=== PATIENT | female | born 1945 | race Caucasian/White ===

== ENCOUNTER 2023-09-15 16:15 | Inpatient (IN) | payer OTHER ==
--- OUTSIDE RECORDS SUMMARY | 2023-09-15 16:31 | XMS REPORT | Clinical Summary ---
:1945 Author Organization [facility] MD [facility] Address [address] [place] [address] Care Team Providers Name Role Phone Mary Wilson MD Unavailable Viet Fair MD Primary Care Provider Ghulam Alarcon MD Unavailable Allergies Active Allergy Reactions Severity Noted Date Comments Adhesive Hives 09/25/2016 Aspirin Shortness Of Breath High 09/21/2015 Ether Anaphylaxis High 07/17/2017 Ezetimibe Other (See Comments) 02/06/2020 Couldn' t lift her arms Silver Rash Low 09/25/2016 [id number] Other (See Comments) 02/06/2020 Has tried multiple Reductase Inhibitors statins in the past: Zocor (started falling), Crest or and lipitor was tri ed and then stopped. U nable to recollect th e side effects to last two statins. Medications Medication Sig Dispensed Refills Start Date End Date Status albuterol Inhale 2.5 mg by 0 11/26/2019 Ac tive (PROVENTIL,VENTOLIN) mouth. 2.5 mg/3 mL (0.083%) nebulizer solution clopidogrel (PLAVIX) 75 Take 75 mg by 0 02/26/2022 Active mg tablet mouth daily. fluticasone propionate Inhale 1 spray 0 02/08/2022 Active (FLONASE) 50 mcg/spray into each nostril nasal spray 2 (two) times a day as needed. gabapentin (NEURONTIN) TAKE 1 CAPSULE BY 0 2 Active 300 mg capsule MOUTH AT BEDTIME *MAY IMPAIR ALERTNESS lansoprazole (PREVACID) Take 30 mg by 0 02/11/[address] capsule mouth every morning before breakfast. losartan (COZAAR) 50 mg Take 100 mg by 0 02/26/2022 Active tablet mouth daily. budesonide-formoterol Inhale 2 puffs by 0 Active (SYMBICORT) 160-4.5 mouth twice mcg/actuation daily. But using inhalerIndications: as needed 1x week bronchospasm prevention with COPD oxyCODONE (Roxicodone) Take 1 tablet (5 5 tablet 0 07/05/2022 Active 5 mg immediate release mg) by mouth tabletIndications: every 4 (four) Vulvar intraepithelial hours as needed neoplasia III (YUNIEL III) for moderate pain. acetaminophen (Tylenol Take 2 tablets 60 tablet 0 07/05/2022 Active Extra Strength) 500 mg (1,000 mg) by tabletIndications: mouth every 6 Vulvar intraepithelial (six) hours. neoplasia III (YUNIEL III) senna-docusate Take 1 tablet by 60 tablet 0 07/05/2022 Active (SENOKOT-S) 8.6 mg-50 mouth twice mg tabletIndications: daily. Vulvar intraepithelial neoplasia III (YUNIEL III) metroNIDAZOLE (FLAGYL) Take 1 tablet 24 tablet 0 07/17/2022 Active 500 mg (500 mg) by mouth tabletIndications: every 12 (twelve) Postoperative wound hours. cellulitis levoFLOXacin (LEVAQUIN) Take 1 tablet 12 tablet 0 07/17/2022 Active 500 mg (500 mg) by mouth tabletIndications: daily. Postoperative wound cellulitis doxycycline Take 1 tablet 24 tablet 0 07/17/2022 Act jurgen (VIBRAMYCIN) 100 mg (100 mg) by mouth tabletIndications: every 12 (twelve) Postoperative wound hours. cellulitis triamcinolone (KENALOG) Apply topically 30 g 08/19/2022 Active ointment to affected 0.1%Indications: area(s) twice Contact dermatitis due daily. Avoid face to other agent, not otherwise specified desonide (DesOwen) Apply topically 30 g 08/19/2022 Active 0.05% creamIndications: to affected Rosacea, not otherwise area(s) twice specified daily. For face and neck fluocinonide (LIDEX) Apply topically 60 mL 3 08/19/2022 Active 0.05% topical to affected solutionIndications: area(s) twice Seborrheic dermatitis, daily. not otherwise specified ketoconazole (Nizoral) Apply topically 120 mL 6 08/19/2022 Active 2% shampooIndications: to affected Seborrheic dermatitis, area(s) 3 (three) not otherwise specified times a week Friday, Friday and Friday. urea 40% Apply topically 100 g 0 08/19/2022 Act jurgen creamIndications: to affected Lesion of scalp, area(s) twice Rosacea, not otherwise daily. specified, Seborrheic dermatitis, not otherwise specified, Contact dermatitis due to other agent, not otherwise specified Active Problems Problem Noted Date Neoplasm, malignant of overlapping lesion of vulva Cancer Staging: Pathologic stage from 07/05/2022: Stage IA (Primary) - Signed by YULISA Felder on 07/16/2022 Postoperative wound cellulitis 07/15/2022 Chronic bronchitis 05/28/2022 Tobacco use 05/28/2022 Vulvar intraepithelial neoplasia III (YUNIEL III) 022 Overview: Added automatically from request for leroy sanchez [id number] Abdominal aortic aneurysm without rupture 09/25/2016 Essential hypertension 09/25/2016 Immunizations Name Administration Dates Next Due Pfizer SARS-CoV-2 Vaccination (Purple 12/27/2021, , 06/09/2021 Cap) Surgical History Surgery Date Site/Laterality Comments HYSTERECTOMY RECTOPERITONEAL FISTULA CLOSURE SECTION, CLASSIC 1966, 1968 OOPHORECTOMY APPENDECTOMY COLONOSCOPY 12/01/2016 - 11/30/2017 SC VULVECTOMY SIMPLE PARTIAL 07/05/2022 Vulva/Left Pro cedure: PARTIAL VULVECTOMY - SIM PLE; Surgeon: Viet Fair MD; Location: [facility]; Service: PAINT FORMULATOR - GYNECOLOGIC ONCO LOGY Medical History Medical History Date Comments Hyperlipidemia Sinusitis Swallowing problem Cyst of breast Chronic bronchitis Gastric reflux Diverticulitis Eczema Basal cell carcinoma of skin 2014 Essential (primary) hypertension Neuropathy Vulvar intraepithelial neoplasia III (YUNIEL III) Family History Medical History Relation Name Comments Breast cancer Mother Mother Cervical cancer Sister Sister Relation Name Status Comments Mother Mother Sister Sister Social History Tobacco Use Types Packs/Day Years Used Date Smoking Tobacco: Every Day Cigarettes 1 55 Smokeless Tobacco: Never Alcohol Use Standard Drinks/Week Comments Not Currently 0 (1 standard drink = 0.6 oz pure alcoho l) Sex Assigned at Date Recorded Not on file Job Start Date Occupation Industry Not on file Not on file Not on file Obstetrics History Para Term AB IAB SAB Ectopic Multiple Living Live Births 2 2 2 Date Outcome GA Total Labor/2nd/3rd Weight Sex Delivery Anes PTL Ivory A 1 A5 Name Clin Labor Para Para Comments Menarche: age 18 Last PAP: 2017, normal. No history of ab normal pap smear or STI. Parity: age 21 HRT: x 10 years OCP: x 2 years Menopause: surgical Fertility Tx: denies Breastfeed: denies Last mammogram: Spring 2021. Last Filed Vital Signs Not on file Plan of Treatment Health Maintenance Due Date Last Done Comments COVID-19 Vaccination (4 - Pfizer 02/21/2022 12/27/2021, , series) 06/09/2021 Results Not on fileafter 09/15/2022 Insurance Payer Benefit Plan / Subscriber ID Effective Dates Phone Addre ss Type Group MEDICARE MEDICARE PART [id number] 2012-Rian [phone] [facility] Medicare A AND B t 2 SOLUTIONS [address] [place] [address] GENERIC GENERIC [id number] 2012-Rian 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 [address] Viet Fair MD PCP - General Gynecological Oncology 04/25/[address] [place] [address] [id number] Ghulam Alarcon MD Consulting Physician Internal Medicine 06/17/22 [facility] [place] [address]
--- OUTSIDE RECORDS SUMMARY | 2023-09-15 16:39 | XMS REPORT | Continuity of Care Document ---
:1945 Author Organization [facility] t Address [address] [place] [address] [address] [place] [address] Care Team Providers Name Role Phone [phone] Primary Care Physician Unavailable MAR MARADIAGA Attending Clinician Unavailable SHANAE ACUÑA K.HNora Attending Clinician Unavailable Doctor Unassigned, [place] Attending Clinician Unavailable Shanae Acuña MD K.HNora Attending Clinician Mohan Sarabia MD Attending Clinician Pob, [facility] Main Attending Clinician Unavailable Yue Thomas MD Attending Clinician YUE THOMAS Attending Clinician Unavailable Khalida Mejia Attending Clinician GIOVANNI GILBERT Attending Clinician Unavailable VICKIE CAGE Attending Clinician Unavailable YADIRA HAWK Attending Clinician Unavailable Sunday SMITH, Lyla Attending Clinician Unavailable DARLINE TAMAYO Attending Clinician Unavailable Nubia BROWN, Cathy Gordon Attending Clinician Darline Tamayo MD Attending Clinician RAFA MCCORMACK Attending Clinician Unavailable FELIX CLARK Attending Clinician Unavailable nAnetta Lo PA-C Attending Clinician DAYNE BASURTO Attending Clinician Unavailable GURJIT ORDONEZ Attending Clinician Unavailable VANESA BANEGAS Attending Clinician Unavailable ELENITA MARROQUIN Attending Clinician Unavailable Elenita Marroquin MD Attending Clinician MOHAN SARABIA Attending Clinician Unavailable Provider, [facility] Attending Clinician Unavailable Gasper Herrera Attending Clinician GASPER BAUTISTA Attending Clinician Unavailable Federico Davis DO Attending Clinician Hilda Zuluaga DO Attending Clinician HILDA ZULUAGA Attending Clinician Unavailable HILDA ZULUAGA Attending Clinician Unavailable Tammi Mabry MD Attending Clinician TAMMI MABRY Attending Clinician Unavailable Yarelis Attending Clinician Unavailable YADIRA HAWK Admitting Clinician Unavailable DARLINE TAMAYO Admitting Clinician Unavailable Darline Tamayo MD Admitting Clinician GIOVANNI GILBERT Admitting Clinician Unavailable ELENITA MARROQUIN Admitting Clinician Unavailable SHANAE ACUÑA Admitting Clinician Unavailable Yarelis Admitting Clinician Unavailable Payers Payer Name Policy Type Policy Number Effective Date Expiration Date S beatriz MEDICARE PART A [id number] 2012 AND B 00:00:00 GENERIC [id number] 2012 00:00:00 [place]IC[place] B-[place]: [id number] 2007 Balance Financial 00:00:00 ROCKY [id number] INSURANCE [email or web address] (MEDICARE SUPPLEMENT) Problems Condition Condition Condition Status Onset Resolution Last Treating Co mments Source Name Details Category Date Date Treatment Clinician Date Neoplasm, Neoplasm, Disease Active Uni vers malignant malignant 8-15 ity of of of 00:00: Alicia overlappin overlappin 00 MD gordon lesion g lesion Marv o of vulva [facility] vul[facility] Postoperat Postoperat Disease Active U nivers jurgen wound jurgen wound 8-15 [place] [facility] Cellulitis Cellulitis Disease Active U nivers of vulva of vulva 8-13 ity of of of 00:00: [place] multiple multiple 00 Medica l sites sites Branch Tobacco Tobacco Disease Active Univers use use 6-28 ity of 00:00: [place] 00 Medical Branch Chronic Chronic Disease Active Univers bronchitis bronchitis 6-28 it y of 00:00: [place] 00 MD [facility] [place] Tobacco Tobacco Disease Active Univers use use 6-28 ity of 00:00: [place] 00 MD [facility] 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 Formattin g of this note might be different from the original. 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 00:00: [place] without without 00 rupture rupture [facility] Essential Essential Disease Active 2015-12 Uni vers hypertensi hypertensi 0-26 it y of on on 00:00: [place] 00 MD [facility] Allergies, Adverse Reactions, Alerts Allergy Allergy Status Severity Reaction(s) Onset Inactive Treating Comm ents Source Name Type Date Date Clinician EZETIMIB DRUG Active Other 2020-0 MD E INGREDI 3-08 Anderso 00:00: n 00 STATINS- Drug Active Other 2020-0 MD HMG-COA Class 3-08 Anderso REDUCTAS 00:00: n E 00 INHIBITO RS STATINS- Drug Active Other 2020-0 MD HMG-COA Class 3-08 Anderso REDUCTAS 00:00: n E 00 INHIBITO RS EZETIMIB DRUG Active Other 2020-0 MD E INGREDI 3-08 Anderso 00:00: n 00 STATINS- Drug Active Other 2020-0 MD HMG-COA Class 3-08 Anderso REDUCTAS 00:00: n E 00 INHIBITO RS EZETIMIB DRUG Active Other 2020-0 MD E INGREDI 3-08 Anderso 00:00: n 00 Statins- Propensi Active Unknown - 2020-0 Has tried Univers Hmg-Coa ty to See comments 3-08 multiple i ty of [place] adverse 00:00: statins [place] e reaction 00 in the Medical Inhibito s past: Branch rs Zocor (started falling), Crestor and lipitor was tried and then stopped. Unable to recollect the side effects to last two statins. STATINS- Drug Active Unknown-Cmnt 2020-0 Un hannah HMG-COA Class 3-08 ity of REDUCTAS 00:00: [place] E 00 Medical INHIBITO Branch RS EZETIMIB DRUG Active Unknown-Cmnt 2020-0 Un hannah E INGREDI 3-08 ity of 00:00: [place] 00 Medical Branch STATINS- Drug Active Other 2020-0 MD HMG-COA Class 3-08 Anderso REDUCTAS 00:00: n E 00 INHIBITO RS EZETIMIB DRUG Active Other 2020-0 MD E INGREDI 3-08 Anderso 00:00: n 00 STATINS- Drug Active Other 2020-0 MD HMG-COA Class 3-08 Anderso REDUCTAS 00:00: n E 00 INHIBITO RS EZETIMIB DRUG Active Other 2020-0 MD E INGREDI 3-08 Anderso 00:00: n 00 STATINS- Drug Active Other 2020-0 MD HMG-COA Class 3-08 Anderso REDUCTAS 00:00: n E 00 INHIBITO RS EZETIMIB DRUG Active Other 2020-0 MD E INGREDI 3-08 Anderso 00:00: n 00 STATINS- Drug Active Other 2020-0 MD HMG-COA Class 3-08 Anderso REDUCTAS 00:00: n E 00 INHIBITO RS EZETIMIB DRUG Active Other 2020-0 MD E INGREDI 3-08 Anderso 00:00: n 00 STATINS- Drug Active Other 2020-0 MD HMG-COA Class 3-08 Anderso REDUCTAS 00:00: n E 00 INHIBITO RS EZETIMIB DRUG Active Other 2020-0 MD E INGREDI 3-08 Anderso 00:00: n 00 STATINS- Drug Active Other 2020-0 MD HMG-COA Class 3-08 Anderso REDUCTAS 00:00: n E 00 INHIBITO RS EZETIMIB DRUG Active Other 2020-0 MD E INGREDI 3-08 Anderso 00:00: n 00 STATINS- Drug Active Other 2020-0 MD HMG-COA Class 3-08 Anderso REDUCTAS 00:00: n E 00 INHIBITO RS EZETIMIB DRUG Active Other 2020-0 MD E INGREDI 3-08 Anderso 00:00: n 00 EZETIMIB DRUG Active Other 2020-0 MD E INGREDI 3-08 Anderso 00:00: n 00 STATINS- Drug Active Other 2020-0 MD HMG-COA Class 3-08 Anderso REDUCTAS 00:00: n E 00 INHIBITO RS EZETIMIB DRUG Active Other 2020-0 MD E INGREDI 3-08 Anderso 00:00: n 00 STATINS- Drug Active Other 2020-0 MD HMG-COA Class 3-08 Anderso REDUCTAS 00:00: n E 00 INHIBITO RS STATINS- Drug Active Other 2020-0 MD HMG-COA Class 3-08 Anderso REDUCTAS 00:00: n E 00 INHIBITO RS EZETIMIB DRUG Active Other 2020-0 MD E INGREDI 3-08 Anderso 00:00: n 00 STATINS- Drug Active Other 2020-0 MD HMG-COA Class 3-08 Anderso REDUCTAS 00:00: n E 00 INHIBITO RS EZETIMIB DRUG Active Other 2020-0 MD E INGREDI 3-08 Anderso 00:00: n 00 STATINS- Drug Active Other 2020-0 MD HMG-COA Class 3-08 Anderso REDUCTAS 00:00: n E 00 INHIBITO RS EZETIMIB DRUG Active Other 2020-0 MD E INGREDI 3-08 Anderso 00:00: n 00 STATINS- Drug Active Other 2020-0 MD HMG-COA Class 3-08 Anderso REDUCTAS 00:00: n E 00 INHIBITO RS EZETIMIB DRUG Active Other 2020-0 MD E INGREDI 3-08 Anderso 00:00: n 00 STATINS- Drug Active Other 2020-0 MD HMG-COA Class 3-08 Anderso REDUCTAS 00:00: n E 00 INHIBITO RS EZETIMIB DRUG Active Other 2020-0 MD E INGREDI 3-08 Anderso 00:00: n 00 STATINS- Drug Active Other 2020-0 MD HMG-COA Class 3-08 Anderso REDUCTAS 00:00: n E 00 INHIBITO RS EZETIMIB DRUG Active Other 2020-0 MD E INGREDI 3-08 Anderso 00:00: n 00 STATINS- Drug Active Other 2020-0 MD HMG-COA Class 3-08 Anderso REDUCTAS 00:00: n E 00 INHIBITO RS EZETIMIB DRUG Active Other 2020-0 MD E INGREDI 3-08 Anderso 00:00: n 00 STATINS- Drug Active Other 2020-0 MD HMG-COA Class 3-08 Anderso REDUCTAS 00:00: n E 00 INHIBITO RS EZETIMIB DRUG Active Other 2020-0 MD E INGREDI 3-08 Anderso 00:00: n 00 STATINS- Drug Active Other 2020-0 MD HMG-COA Class 3-08 Anderso REDUCTAS 00:00: n E 00 INHIBITO RS EZETIMIB DRUG Active Other 2020-0 MD E INGREDI 3-08 Anderso 00:00: n 00 STATINS- Drug Active Other 2020-0 MD HMG-COA Class 3-08 Anderso REDUCTAS 00:00: n E 00 INHIBITO RS EZETIMIB DRUG Active Other 2020-0 MD E INGREDI 3-08 Anderso 00:00: n 00 EZETIMIB DRUG Active Other 2020-0 MD E INGREDI 3-08 Anderso 00:00: n 00 STATINS- Drug Active Other 2020-0 MD HMG-COA Class 3-08 Anderso REDUCTAS 00:00: n E 00 INHIBITO RS EZETIMIB DRUG Active Other 2020-0 MD E INGREDI 3-08 Anderso 00:00: n 00 STATINS- Drug Active Other 2020-0 MD HMG-COA Class 3-08 Anderso REDUCTAS 00:00: n E 00 INHIBITO RS STATINS- Drug Active Other 2020-0 MD HMG-COA Class 3-08 Anderso REDUCTAS 00:00: n E 00 INHIBITO RS EZETIMIB DRUG Active Other 2020-0 MD E INGREDI 3-08 Anderso 00:00: n 00 STATINS- Drug Active Other 2020-0 MD HMG-COA Class 3-08 Anderso REDUCTAS 00:00: n E 00 INHIBITO RS EZETIMIB DRUG Active Other 2020-0 MD E INGREDI 3-08 Anderso 00:00: n 00 STATINS- Drug Active Other 2020-0 MD HMG-COA Class 3-08 Anderso REDUCTAS 00:00: n E 00 INHIBITO RS EZETIMIB DRUG Active Other 2020-0 MD E INGREDI 3-08 Anderso 00:00: n 00 STATINS- Drug Active Other 2020-0 MD HMG-COA Class 3-08 Anderso REDUCTAS 00:00: n E 00 INHIBITO RS EZETIMIB DRUG Active Other 2020-0 MD E INGREDI 3-08 Anderso 00:00: n 00 STATINS- Drug Active Other 2020-0 MD HMG-COA Class 3-08 Anderso REDUCTAS 00:00: n E 00 INHIBITO RS EZETIMIB DRUG Active Other 2020-0 MD E INGREDI 3-08 Anderso 00:00: n 00 STATINS- Drug Active Other 2020-0 MD HMG-COA Class 3-08 Anderso REDUCTAS 00:00: n E 00 INHIBITO RS EZETIMIB DRUG Active Other 2020-0 MD E INGREDI 3-08 Anderso 00:00: n 00 STATINS- Drug Active Other 2020-0 MD HMG-COA Class 3-08 Anderso REDUCTAS 00:00: n E 00 INHIBITO RS EZETIMIB DRUG Active Other 2020-0 MD E INGREDI 3-08 Anderso 00:00: n 00 STATINS- Drug Active Other 2020-0 MD HMG-COA Class 3-08 Anderso REDUCTAS 00:00: n E 00 INHIBITO RS EZETIMIB DRUG Active Other 2020-0 MD E INGREDI 3-08 Anderso 00:00: n 00 STATINS- Drug Active Other 2020-0 MD HMG-COA Class 3-08 Anderso REDUCTAS 00:00: n E 00 INHIBITO RS EZETIMIB DRUG Active Other 2020-0 MD E INGREDI 3-08 Anderso 00:00: n 00 EZETIMIB DRUG Active Other 2020-0 MD E INGREDI 3-08 Anderso 00:00: n 00 STATINS- Drug Active Other 2020-0 MD HMG-COA Class 3-08 Anderso REDUCTAS 00:00: n E 00 INHIBITO RS EZETIMIB DRUG Active Other 2020-0 MD E INGREDI 3-08 Anderso 00:00: n 00 STATINS- Drug Active Other 2020-0 MD HMG-COA Class 3-08 Anderso REDUCTAS 00:00: n E 00 INHIBITO RS STATINS- Drug Active Other 2020-0 MD HMG-COA Class 3-08 Anderso REDUCTAS 00:00: n E 00 INHIBITO RS EZETIMIB DRUG Active Other 2020-0 MD E INGREDI 3-08 Anderso 00:00: n 00 STATINS- Drug Active Other 2020-0 MD HMG-COA Class 3-08 Anderso REDUCTAS 00:00: n E 00 INHIBITO RS EZETIMIB DRUG Active Other 2020-0 MD E INGREDI 3-08 Anderso 00:00: n 00 STATINS- Drug Active Other 2020-0 MD HMG-COA Class 3-08 Anderso REDUCTAS 00:00: n E 00 INHIBITO RS EZETIMIB DRUG Active Other 2020-0 MD E INGREDI 3-08 Anderso 00:00: n 00 STATINS- Drug Active Other 2020-0 MD HMG-COA Class 3-08 Anderso REDUCTAS 00:00: n E 00 INHIBITO RS EZETIMIB DRUG Active Other 2020-0 MD E INGREDI 3-08 Anderso 00:00: n 00 STATINS- Drug Active Other 2020-0 MD HMG-COA Class 3-08 Anderso REDUCTAS 00:00: n E 00 INHIBITO RS EZETIMIB DRUG Active Other 2020-0 MD E INGREDI 3-08 Anderso 00:00: n 00 STATINS- Drug Active Other 2020-0 MD HMG-COA Class 3-08 Anderso REDUCTAS 00:00: n E 00 INHIBITO RS EZETIMIB DRUG Active Other 2020-0 MD E INGREDI 3-08 Anderso 00:00: n 00 STATINS- Drug Active Other 2020-0 MD HMG-COA Class 3-08 Anderso REDUCTAS 00:00: n E 00 INHIBITO RS EZETIMIB DRUG Active Other 2020-0 MD E INGREDI 3-08 Anderso 00:00: n 00 STATINS- Drug Active Other 2020-0 MD HMG-COA Class 3-08 Anderso REDUCTAS 00:00: n E 00 INHIBITO RS EZETIMIB DRUG Active Other 2020-0 MD E INGREDI 3-08 Anderso 00:00: n 00 STATINS- Drug Active Other 2020-0 MD HMG-COA Class 3-08 Anderso REDUCTAS 00:00: n E 00 INHIBITO RS EZETIMIB DRUG Active Other 2020-0 MD E INGREDI 3-08 Anderso 00:00: n 00 STATINS- Drug Active Other 2020-0 MD HMG-COA Class 3-08 Anderso REDUCTAS 00:00: n E 00 INHIBITO RS EZETIMIB DRUG Active Other 2020-0 MD E INGREDI 3-08 Anderso 00:00: n 00 STATINS- Drug Active Other 2020-0 MD HMG-COA Class 3-08 Anderso REDUCTAS 00:00: n E 00 INHIBITO RS EZETIMIB DRUG Active Other 2020-0 MD E INGREDI 3-08 Anderso 00:00: n 00 STATINS- Drug Active Other 2020-0 MD HMG-COA Class 3-08 Anderso REDUCTAS 00:00: n E 00 INHIBITO RS EZETIMIB DRUG Active Other 2020-0 MD E INGREDI 3-08 Anderso 00:00: n 00 EZETIMIB DRUG Active Other 2020-0 MD E INGREDI 3-08 Anderso 00:00: n 00 STATINS- Drug Active Other 2020-0 MD HMG-COA Class 3-08 Anderso REDUCTAS 00:00: n E 00 INHIBITO RS STATINS- Drug Active Other 2020-0 MD HMG-COA Class 3-08 Anderso REDUCTAS 00:00: n E 00 INHIBITO RS EZETIMIB DRUG Active Other 2020-0 MD E INGREDI 3-08 Anderso 00:00: n 00 STATINS- Drug Active Other 2020-0 MD HMG-COA Class 3-08 Anderso REDUCTAS 00:00: n E 00 INHIBITO RS Ezetimib Propensi Active Other (See 2020-0 Couldn't Univers e ty to Comments) 3- lift her ity o f adverse 00:00: arms [place] reaction 00 MD [facility] Statins- Propensi Active Other (See 2020-0 Has tried Univers Hmg-Coa ty to Comments) 3- multiple ity of [place] adverse 00:00: statins [place] e reaction 00 in the MD Urbina s past: Anderso rs Zocor n (started Cancer falling), Center Crestor and lipitor was tried and then stopped. Unable to recollect the side effects to last two statins. EZETIMIB DRUG Active Other 2020-0 MD E INGREDI 3-08 Anderso 00:00: n 00 STATINS- Drug Active Other 2020-0 MD HMG-COA Class 3-08 Anderso REDUCTAS 00:00: n E 00 INHIBITO RS EZETIMIB DRUG Active Other 2020-0 MD E INGREDI 3-08 Anderso 00:00: n 00 STATINS- Drug Active Other 2020-0 MD HMG-COA Class 3-08 Anderso REDUCTAS 00:00: n E 00 INHIBITO RS EZETIMIB DRUG Active Other 2020-0 MD E INGREDI 3-08 Anderso 00:00: n 00 STATINS- Drug Active Other 2020-0 MD HMG-COA Class 3-08 Anderso REDUCTAS 00:00: n E 00 INHIBITO RS EZETIMIB DRUG Active Other 2020-0 MD E INGREDI 3-08 Anderso 00:00: n 00 STATINS- Drug Active Other 2020-0 MD HMG-COA Class 3-08 Anderso REDUCTAS 00:00: n E 00 INHIBITO RS EZETIMIB DRUG Active Other 2020-0 MD E INGREDI 3-08 Anderso 00:00: n 00 STATINS- Drug Active Other 2020-0 MD HMG-COA Class 3-08 Anderso REDUCTAS 00:00: n E 00 INHIBITO RS EZETIMIB DRUG Active Other 2020-0 MD E INGREDI 3-08 Anderso 00:00: n 00 STATINS- Drug Active Other 2020-0 MD HMG-COA Class 3-08 Anderso REDUCTAS 00:00: n E 00 INHIBITO RS EZETIMIB DRUG Active Other 2020-0 MD E INGREDI 3-08 Anderso 00:00: n 00 STATINS- Drug Active Other 2020-0 MD HMG-COA Class 3-08 Anderso REDUCTAS 00:00: n E 00 INHIBITO RS EZETIMIB DRUG Active Other 2020-0 MD E INGREDI 3-08 Anderso 00:00: n 00 STATINS- Drug Active Other 2020-0 MD HMG-COA Class 3-08 Anderso REDUCTAS 00:00: n E 00 INHIBITO RS EZETIMIB DRUG Active Other 2020-0 MD E INGREDI 3-08 Anderso 00:00: n 00 STATINS- Drug Active Other 2020-0 MD HMG-COA Class 3-08 Anderso REDUCTAS 00:00: n E 00 INHIBITO RS EZETIMIB DRUG Active Other 2020-0 MD E INGREDI 3-08 Anderso 00:00: n 00 EZETIMIB DRUG Active Other 2020-0 MD E INGREDI 3-08 Anderso 00:00: n 00 STATINS- Drug Active Other 2020-0 MD HMG-COA Class 3-08 Anderso REDUCTAS 00:00: n E 00 INHIBITO RS EZETIMIB DRUG Active Other 2020-0 MD E INGREDI 3-08 Anderso 00:00: n 00 STATINS- Drug Active Other 2020-0 MD HMG-COA Class 3-08 Anderso REDUCTAS 00:00: n E 00 INHIBITO RS STATINS- Drug Active Other 2020-0 MD HMG-COA Class 3-08 Anderso REDUCTAS 00:00: n E 00 INHIBITO RS EZETIMIB DRUG Active Other 2020-0 MD E INGREDI 3-08 Anderso 00:00: n 00 STATINS- Drug Active Other 2020-0 MD HMG-COA Class 3-08 Anderso REDUCTAS 00:00: n E 00 INHIBITO RS EZETIMIB DRUG Active Other 2020-0 MD E INGREDI 3-08 Anderso 00:00: n 00 STATINS- Drug Active Other 2020-0 MD HMG-COA Class 3-08 Anderso REDUCTAS 00:00: n E 00 INHIBITO RS EZETIMIB DRUG Active Other 2020-0 MD E INGREDI 3-08 Anderso 00:00: n 00 STATINS- Drug Active Other 2020-0 MD HMG-COA Class 3-08 Anderso REDUCTAS 00:00: n E 00 INHIBITO RS EZETIMIB DRUG Active Other 2020-0 MD E INGREDI 3-08 Anderso 00:00: n 00 STATINS- Drug Active Other 2020-0 MD HMG-COA Class 3-08 Anderso REDUCTAS 00:00: n E 00 INHIBITO RS EZETIMIB DRUG Active Other 2020-0 MD E INGREDI 3-08 Anderso 00:00: n 00 STATINS- Drug Active Other 2020-0 MD HMG-COA Class 3-08 Anderso REDUCTAS 00:00: n E 00 INHIBITO RS EZETIMIB DRUG Active Other 2020-0 MD E INGREDI 3-08 Anderso 00:00: n 00 STATINS- Drug Active Other 2020-0 MD HMG-COA Class 3-08 Anderso REDUCTAS 00:00: n E 00 INHIBITO RS EZETIMIB DRUG Active Other 2020-0 MD E INGREDI 3-08 Anderso 00:00: n 00 STATINS- Drug Active Other 2020-0 MD HMG-COA Class 3-08 Anderso REDUCTAS 00:00: n E 00 INHIBITO RS EZETIMIB DRUG Active Other 2020-0 MD E INGREDI 3-08 Anderso 00:00: n 00 STATINS- Drug Active Other 2020-0 MD HMG-COA Class 3-08 Anderso REDUCTAS 00:00: n E 00 INHIBITO RS EZETIMIB DRUG Active Other 2020-0 MD E INGREDI 3-08 Anderso 00:00: n 00 STATINS- Drug Active Other 2020-0 MD HMG-COA Class 3-08 Anderso REDUCTAS 00:00: n E 00 INHIBITO RS EZETIMIB DRUG Active Other 2020-0 MD E INGREDI 3-08 Anderso 00:00: n 00 STATINS- Drug Active Other 2020-0 MD HMG-COA Class 3-08 Anderso REDUCTAS 00:00: n E 00 INHIBITO RS EZETIMIB DRUG Active Other 2020-0 MD E INGREDI 3-08 Anderso 00:00: n 00 EZETIMIB DRUG Active Other 2020-0 MD E INGREDI 3-08 Anderso 00:00: n 00 STATINS- Drug Active Other 2020-0 MD HMG-COA Class 3-08 Anderso REDUCTAS 00:00: n E 00 INHIBITO RS STATINS- Drug Active Other 2020-0 MD HMG-COA Class 3-08 Anderso REDUCTAS 00:00: n E 00 INHIBITO RS EZETIMIB DRUG Active Other 2020-0 MD E INGREDI 3-08 Anderso 00:00: n 00 STATINS- Drug Active Other 2020-0 MD HMG-COA Class 3-08 Anderso REDUCTAS 00:00: n E 00 INHIBITO RS EZETIMIB DRUG Active Other 2020-0 MD E INGREDI 3-08 Anderso 00:00: n 00 STATINS- Drug Active Other 2020-0 MD HMG-COA Class 3-08 Anderso REDUCTAS 00:00: n E 00 INHIBITO RS EZETIMIB DRUG Active Other 2020-0 MD E INGREDI 3-08 Anderso 00:00: n 00 STATINS- Drug Active Other 2020-0 MD HMG-COA Class 3-08 Anderso REDUCTAS 00:00: n E 00 INHIBITO RS EZETIMIB DRUG Active Other 2020-0 MD E INGREDI 3-08 Anderso 00:00: n 00 STATINS- Drug Active Other 2020-0 MD HMG-COA Class 3-08 Anderso REDUCTAS 00:00: n E 00 INHIBITO RS EZETIMIB DRUG Active Other 2020-0 MD E INGREDI 3-08 Anderso 00:00: n 00 STATINS- Drug Active Other 2020-0 MD HMG-COA Class 3-08 Anderso REDUCTAS 00:00: n E 00 INHIBITO RS EZETIMIB DRUG Active Other 2020-0 MD E INGREDI 3-08 Anderso 00:00: n 00 STATINS- Drug Active Other 2020-0 MD HMG-COA Class 3-08 Anderso REDUCTAS 00:00: n E 00 INHIBITO RS EZETIMIB DRUG Active Other 2020-0 MD E INGREDI 3-08 Anderso 00:00: n 00 STATINS- Drug Active Other 2020-0 MD HMG-COA Class 3-08 Anderso REDUCTAS 00:00: n E 00 INHIBITO RS EZETIMIB DRUG Active Other 2020-0 MD E INGREDI 3-08 Anderso 00:00: n 00 STATINS- Drug Active Other 2020-0 MD HMG-COA Class 3-08 Anderso REDUCTAS 00:00: n E 00 INHIBITO RS EZETIMIB DRUG Active Other 2020-0 MD E INGREDI 3-08 Anderso 00:00: n 00 STATINS- Drug Active Other 2020-0 MD HMG-COA Class 3-08 Anderso REDUCTAS 00:00: n E 00 INHIBITO RS EZETIMIB DRUG Active Other 2020-0 MD E INGREDI 3-08 Anderso 00:00: n 00 STATINS- Drug Active Other 2020-0 MD HMG-COA Class 3-08 Anderso REDUCTAS 00:00: n E 00 INHIBITO RS EZETIMIB DRUG Active Other 2020-0 MD E INGREDI 3-08 Anderso 00:00: n 00 EZETIMIB DRUG Active Other 2020-0 MD E INGREDI 3-08 Anderso 00:00: n 00 STATINS- Drug Active Other 2020-0 MD HMG-COA Class 3-08 Anderso REDUCTAS 00:00: n E 00 INHIBITO RS EZETIMIB DRUG Active Other 2020-0 MD E INGREDI 3-08 Anderso 00:00: n 00 STATINS- Drug Active Other 2020-0 MD HMG-COA Class 3-08 Anderso REDUCTAS 00:00: n E 00 INHIBITO RS STATINS- Drug Active Other 2020-0 MD HMG-COA Class 3-08 Anderso REDUCTAS 00:00: n E 00 INHIBITO RS EZETIMIB DRUG Active Other 2020-0 MD E INGREDI 3-08 Anderso 00:00: n 00 STATINS- Drug Active Other 2020-0 MD HMG-COA Class 3-08 Anderso REDUCTAS 00:00: n E 00 INHIBITO RS EZETIMIB DRUG Active Other 2020-0 MD E INGREDI 3-08 Anderso 00:00: n 00 STATINS- Drug Active Other 2020-0 MD HMG-COA Class 3-08 Anderso REDUCTAS 00:00: n E 00 INHIBITO RS EZETIMIB DRUG Active Other 2020-0 MD E INGREDI 3-08 Anderso 00:00: n 00 STATINS- Drug Active Other 2020-0 MD HMG-COA Class 3-08 Anderso REDUCTAS 00:00: n E 00 INHIBITO RS EZETIMIB DRUG Active Other 2020-0 MD E INGREDI 3-08 Anderso 00:00: n 00 STATINS- Drug Active Other 2020-0 MD HMG-COA Class 3-08 Anderso REDUCTAS 00:00: n E 00 INHIBITO RS EZETIMIB DRUG Active Other 2020-0 MD E INGREDI 3-08 Anderso 00:00: n 00 STATINS- Drug Active Other 2020-0 MD HMG-COA Class 3-08 Anderso REDUCTAS 00:00: n E 00 INHIBITO RS EZETIMIB DRUG Active Other 2020-0 MD E INGREDI 3-08 Anderso 00:00: n 00 STATINS- Drug Active Other 2020-0 MD HMG-COA Class 3-08 Anderso REDUCTAS 00:00: n E 00 INHIBITO RS EZETIMIB DRUG Active Other 2020-0 MD E INGREDI 3-08 Anderso 00:00: n 00 STATINS- Drug Active Other 2020-0 MD HMG-COA Class 3-08 Anderso REDUCTAS 00:00: n E 00 INHIBITO RS EZETIMIB DRUG Active Other 2020-0 MD E INGREDI 3-08 Anderso 00:00: n 00 STATINS- Drug Active Other 2020-0 MD HMG-COA Class 3-08 Anderso REDUCTAS 00:00: n E 00 INHIBITO RS EZETIMIB DRUG Active Other 2020-0 MD E INGREDI 3-08 Anderso 00:00: n 00 STATINS- Drug Active Other 2020-0 MD HMG-COA Class 3-08 Anderso REDUCTAS 00:00: n E 00 INHIBITO RS EZETIMIB DRUG Active Other 2020-0 MD E INGREDI 3-08 Anderso 00:00: n 00 EZETIMIB DRUG Active Other 2020-0 MD E INGREDI 3-08 Anderso 00:00: n 00 STATINS- Drug Active Other 2020-0 MD HMG-COA Class 3-08 Anderso REDUCTAS 00:00: n E 00 INHIBITO RS EZETIMIB DRUG Active Other 2020-0 MD E INGREDI 3-08 Anderso 00:00: n 00 STATINS- Drug Active Other 2020-0 MD HMG-COA Class 3-08 Anderso REDUCTAS 00:00: n E 00 INHIBITO RS STATINS- Drug Active Other 2020-0 MD HMG-COA Class 3-08 Anderso REDUCTAS 00:00: n E 00 INHIBITO RS EZETIMIB DRUG Active Other 2020-0 MD E INGREDI 3-08 Anderso 00:00: n 00 STATINS- Drug Active Other 2020-0 MD HMG-COA Class 3-08 Anderso REDUCTAS 00:00: n E 00 INHIBITO RS EZETIMIB DRUG Active Other 2020-0 MD E INGREDI 3-08 Anderso 00:00: n 00 STATINS- Drug Active Other 2020-0 MD HMG-COA Class 3-08 Anderso REDUCTAS 00:00: n E 00 INHIBITO RS EZETIMIB DRUG Active Other 2020-0 MD E INGREDI 3-08 Anderso 00:00: n 00 STATINS- Drug Active Other 2020-0 MD HMG-COA Class 3-08 Anderso REDUCTAS 00:00: n E 00 INHIBITO RS EZETIMIB DRUG Active Other 2020-0 MD E INGREDI 3-08 Anderso 00:00: n 00 STATINS- Drug Active Other 2020-0 MD HMG-COA Class 3-08 Anderso REDUCTAS 00:00: n E 00 INHIBITO RS EZETIMIB DRUG Active Other 2020-0 MD E INGREDI 3-08 Anderso 00:00: n 00 STATINS- Drug Active Other 2020-0 MD HMG-COA Class 3-08 Anderso REDUCTAS 00:00: n E 00 INHIBITO RS EZETIMIB DRUG Active Other 2020-0 MD E INGREDI 3-08 Anderso 00:00: n 00 STATINS- Drug Active Other 2020-0 MD HMG-COA Class 3-08 Anderso REDUCTAS 00:00: n E 00 INHIBITO RS EZETIMIB DRUG Active Other 2020-0 MD E INGREDI 3-08 Anderso 00:00: n 00 STATINS- Drug Active Other 2020-0 MD HMG-COA Class 3-08 Anderso REDUCTAS 00:00: n E 00 INHIBITO RS EZETIMIB DRUG Active Other 2020-0 MD E INGREDI 3-08 Anderso 00:00: n 00 EZETIMIB DRUG Active Other 2020-0 MD E INGREDI 3-08 Anderso 00:00: n 00 STATINS- Drug Active Other 2020-0 MD HMG-COA Class 3-08 Anderso REDUCTAS 00:00: n E 00 INHIBITO RS EZETIMIB DRUG Active Other 2020-0 MD E INGREDI 3-08 Anderso 00:00: n 00 STATINS- Drug Active Other 2020-0 MD HMG-COA Class 3-08 Anderso REDUCTAS 00:00: n E 00 INHIBITO RS STATINS- Drug Active Other 2020-0 MD HMG-COA Class 3-08 Anderso REDUCTAS 00:00: n E 00 INHIBITO RS EZETIMIB DRUG Active Other 2020-0 MD E INGREDI 3-08 Anderso 00:00: n 00 STATINS- Drug Active Other 2020-0 MD HMG-COA Class 3-08 Anderso REDUCTAS 00:00: n E 00 INHIBITO RS EZETIMIB DRUG Active Other 2020-0 MD E INGREDI 3-08 Anderso 00:00: n 00 STATINS- Drug Active Other 2020-0 MD HMG-COA Class 3-08 Anderso REDUCTAS 00:00: n E 00 INHIBITO RS EZETIMIB DRUG Active Other 2020-0 MD E INGREDI 3-08 Anderso 00:00: n 00 STATINS- Drug Active Other 2020-0 MD HMG-COA Class 3-08 Anderso REDUCTAS 00:00: n E 00 INHIBITO RS EZETIMIB DRUG Active Other 2020-0 MD E INGREDI 3-08 Anderso 00:00: n 00 STATINS- Drug Active Other 2020-0 MD HMG-COA Class 3-08 Anderso REDUCTAS 00:00: n E 00 INHIBITO RS EZETIMIB DRUG Active Other 2020-0 MD E INGREDI 3-08 Anderso 00:00: n 00 STATINS- Drug Active Other 2020-0 MD HMG-COA Class 3-08 Anderso REDUCTAS 00:00: n E 00 INHIBITO RS EZETIMIB DRUG Active Other 2020-0 MD E INGREDI 3-08 Anderso 00:00: n 00 STATINS- Drug Active Other 2020-0 MD HMG-COA Class 3-08 Anderso REDUCTAS 00:00: n E 00 INHIBITO RS EZETIMIB DRUG Active Other 2020-0 MD E INGREDI 3-08 Anderso 00:00: n 00 STATINS- Drug Active Other 2020-0 MD HMG-COA Class 3-08 Anderso REDUCTAS 00:00: n E 00 INHIBITO RS EZETIMIB DRUG Active Other 2020-0 MD E INGREDI 3-08 Anderso 00:00: n 00 STATINS- Drug Active Other 2020-0 MD HMG-COA Class 3-08 Anderso REDUCTAS 00:00: n E 00 INHIBITO RS EZETIMIB DRUG Active Other 2020-0 MD E INGREDI 3-08 Anderso 00:00: n 00 STATINS- Drug Active Other 2020-0 MD HMG-COA Class 3-08 Anderso REDUCTAS 00:00: n E 00 INHIBITO RS EZETIMIB DRUG Active Other 2020-0 MD E INGREDI 3-08 Anderso 00:00: n 00 STATINS- Drug Active Other 2020-0 MD HMG-COA Class 3-08 Anderso REDUCTAS 00:00: n E 00 INHIBITO RS EZETIMIB DRUG Active Other 2020-0 MD E INGREDI 3-08 Anderso 00:00: n 00 STATINS- Drug Active Other 2020-0 MD HMG-COA Class 3-08 Anderso REDUCTAS 00:00: n E 00 INHIBITO RS EZETIMIB DRUG Active Other 2020-0 MD E INGREDI 3-08 Anderso 00:00: n 00 STATINS- Drug Active Other 2020-0 MD HMG-COA Class 3-08 Anderso REDUCTAS 00:00: n E 00 INHIBITO RS EZETIMIB DRUG Active Other 2020-0 MD E INGREDI 3-08 Anderso 00:00: n 00 STATINS- Drug Active Other 2020-0 MD HMG-COA Class 3-08 Anderso REDUCTAS 00:00: n E 00 INHIBITO RS EZETIMIB DRUG Active Other 2020-0 MD E INGREDI 3-08 Anderso 00:00: n 00 STATINS- Drug Active Other 2020-0 MD HMG-COA Class 3-08 Anderso REDUCTAS 00:00: n E 00 INHIBITO RS EZETIMIB DRUG Active Other 2020-0 MD E INGREDI 3-08 Anderso 00:00: n 00 STATINS- Drug Active Other 2020-0 MD HMG-COA Class 3-08 Anderso REDUCTAS 00:00: n E 00 INHIBITO RS EZETIMIB DRUG Active Other 2020-0 MD E INGREDI 3-08 Anderso 00:00: n 00 STATINS- Drug Active Other 2020-0 MD HMG-COA Class 3-08 Anderso REDUCTAS 00:00: n E 00 INHIBITO RS EZETIMIB DRUG Active Other 2020-0 MD E INGREDI 3-08 Anderso 00:00: n 00 STATINS- Drug Active Other 2020-0 MD HMG-COA Class 3-08 Anderso REDUCTAS 00:00: n E 00 INHIBITO RS EZETIMIB DRUG Active Other 2020-0 MD E INGREDI 3-08 Anderso 00:00: n 00 STATINS- Drug Active Other 2020-0 MD HMG-COA Class 3-08 Anderso REDUCTAS 00:00: n E 00 INHIBITO RS EZETIMIB DRUG Active Other 2020-0 MD E INGREDI 3-08 Anderso 00:00: n 00 STATINS- Drug Active Other 2020-0 MD HMG-COA Class 3-08 Anderso REDUCTAS 00:00: n E 00 INHIBITO RS EZETIMIB DRUG Active Other 2020-0 MD E INGREDI 3-08 Anderso 00:00: n 00 STATINS- Drug Active Other 2020-0 MD HMG-COA Class 3-08 Anderso REDUCTAS 00:00: n E 00 INHIBITO RS EZETIMIB DRUG Active Other 2020-0 MD E INGREDI 3-08 Anderso 00:00: n 00 STATINS- Drug Active Other 2020-0 MD HMG-COA Class 3-08 Anderso REDUCTAS 00:00: n E 00 INHIBITO RS EZETIMIB DRUG Active Other 2020-0 MD E INGREDI 3-08 Anderso 00:00: n 00 STATINS- Drug Active Other 2020-0 MD HMG-COA Class 3-08 Anderso REDUCTAS 00:00: n E 00 INHIBITO RS EZETIMIB DRUG Active Other 2020-0 MD E INGREDI 3-08 Anderso 00:00: n 00 STATINS- Drug Active Other 2020-0 MD HMG-COA Class 3-08 Anderso REDUCTAS 00:00: n E 00 INHIBITO RS EZETIMIB DRUG Active Other 2020-0 MD E INGREDI 3-08 Anderso 00:00: n 00 STATINS- Drug Active Other 2020-0 MD HMG-COA Class 3-08 Anderso REDUCTAS 00:00: n E 00 INHIBITO RS EZETIMIB DRUG Active Other 2020-0 MD E INGREDI 3-08 Anderso 00:00: n 00 STATINS- Drug Active Other 2020-0 MD HMG-COA Class 3-08 Anderso REDUCTAS 00:00: n E 00 INHIBITO RS EZETIMIB DRUG Active Other 2020-0 MD E INGREDI 3-08 Anderso 00:00: n 00 STATINS- Drug Active Other 2020-0 MD HMG-COA Class 3-08 Anderso REDUCTAS 00:00: n E 00 INHIBITO RS EZETIMIB DRUG Active Other 2020-0 MD E INGREDI 3-08 Anderso 00:00: n 00 STATINS- Drug Active Other 2020-0 MD HMG-COA Class 3-08 Anderso REDUCTAS 00:00: n E 00 INHIBITO RS EZETIMIB DRUG Active Other 2020-0 MD E INGREDI 3-08 Anderso 00:00: n 00 STATINS- Drug Active Other 2020-0 MD HMG-COA Class 3-08 Anderso REDUCTAS 00:00: n E 00 INHIBITO RS EZETIMIB DRUG Active Other 2020-0 MD E INGREDI 3-08 Anderso 00:00: n 00 STATINS- Drug Active Other 2020-0 MD HMG-COA Class 3-08 Anderso REDUCTAS 00:00: n E 00 INHIBITO RS EZETIMIB DRUG Active Other 2020-0 MD E INGREDI 3-08 Anderso 00:00: n 00 STATINS- Drug Active Other 2020-0 MD HMG-COA Class 3-08 Anderso REDUCTAS 00:00: n E 00 INHIBITO RS EZETIMIB DRUG Active Other 2020-0 MD E INGREDI 3-08 Anderso 00:00: n 00 STATINS- Drug Active Other 2020-0 MD HMG-COA Class 3-08 Anderso REDUCTAS 00:00: n E 00 INHIBITO RS EZETIMIB DRUG Active Other 2020-0 MD E INGREDI 3-08 Anderso 00:00: n 00 STATINS- Drug Active Other 2020-0 MD HMG-COA Class 3-08 Anderso REDUCTAS 00:00: n E 00 INHIBITO RS EZETIMIB DRUG Active Other 2020-0 MD E INGREDI 3-08 Anderso 00:00: n 00 EZETIMIB DRUG Active Other 2020-0 MD E INGREDI 3-08 Anderso 00:00: n 00 STATINS- Drug Active Other 2020-0 MD HMG-COA Class 3-08 Anderso REDUCTAS 00:00: n E 00 INHIBITO RS ETHER DRUG Active Anaphylaxis Unive rs INGREDI 07-17 ity of 00:00: [place] [address] [place] [address] Branch Ether Propensi Active Anaphylaxis Uni vers ty to 07-17 ity of adverse 00:00: [place] reaction 00 MD [facility] ETHER DRUG Active High Anaphylaxis 2017-0 MD INGREDI 8-17 Anderso 00:00: n 00 ETHER DRUG Active High Anaphylaxis 2017-0 MD INGREDI 8-17 Anderso 00:00: n 00 ETHER DRUG Active High Anaphylaxis 2017-0 MD INGREDI 8-17 Anderso 00:00: n 00 ETHER DRUG Active High Anaphylaxis 2017-0 MD INGREDI 8-17 Anderso 00:00: n 00 ETHER DRUG Active High Anaphylaxis 2017-0 MD INGREDI 8-17 Anderso 00:00: n 00 ETHER DRUG Active High Anaphylaxis 2017-0 MD INGREDI 8-17 Anderso 00:00: n 00 ETHER DRUG Active High Anaphylaxis 2017-0 MD INGREDI 8-17 Anderso 00:00: n 00 ETHER DRUG Active High Anaphylaxis 2017-0 MD INGREDI 8-17 Anderso 00:00: n 00 ETHER DRUG Active High Anaphylaxis 2017-0 MD INGREDI 8-17 Anderso 00:00: n 00 ETHER DRUG Active High Anaphylaxis 2017-0 MD INGREDI 8-17 Anderso 00:00: n 00 ETHER DRUG Active High Anaphylaxis 2017-0 MD INGREDI 8-17 Anderso 00:00: n 00 ETHER DRUG Active High Anaphylaxis 2017-0 MD INGREDI 8-17 Anderso 00:00: n 00 ETHER DRUG Active High Anaphylaxis 2017-0 MD INGREDI 8-17 Anderso 00:00: n 00 ETHER DRUG Active High Anaphylaxis 2017-0 MD INGREDI 8-17 Anderso 00:00: n 00 ETHER DRUG Active High Anaphylaxis 2017-0 MD INGREDI 8-17 Anderso 00:00: n 00 ETHER DRUG Active High Anaphylaxis 2017-0 MD INGREDI 8-17 Anderso 00:00: n 00 ETHER DRUG Active High Anaphylaxis 2017-0 MD INGREDI 8-17 Anderso 00:00: n 00 ETHER DRUG Active High Anaphylaxis 2017-0 MD INGREDI 8-17 Anderso 00:00: n 00 ETHER DRUG Active High Anaphylaxis 2017-0 MD INGREDI 8-17 Anderso 00:00: n 00 ETHER DRUG Active High Anaphylaxis 2017-0 MD INGREDI 8-17 Anderso 00:00: n 00 ETHER DRUG Active High Anaphylaxis 2017-0 MD INGREDI 8-17 Anderso 00:00: n 00 ETHER DRUG Active High Anaphylaxis 2017-0 MD INGREDI 8-17 Anderso 00:00: n 00 ETHER DRUG Active High Anaphylaxis 2017-0 MD INGREDI 8-17 Anderso 00:00: n 00 ETHER DRUG Active High Anaphylaxis 2017-0 MD INGREDI 8-17 Anderso 00:00: n 00 ETHER DRUG Active High Anaphylaxis 2017-0 MD INGREDI 8-17 Anderso 00:00: n 00 ETHER DRUG Active High Anaphylaxis 2017-0 MD INGREDI 8-17 Anderso 00:00: n 00 ETHER DRUG Active High Anaphylaxis 2017-0 MD INGREDI 8-17 Anderso 00:00: n 00 ETHER DRUG Active High Anaphylaxis 2017-0 MD INGREDI 8-17 Anderso 00:00: n 00 ETHER DRUG Active High Anaphylaxis 2017-0 MD INGREDI 8-17 Anderso 00:00: n 00 ETHER DRUG Active High Anaphylaxis 2017-0 MD INGREDI 8-17 Anderso 00:00: n 00 ETHER DRUG Active High Anaphylaxis 2017-0 MD INGREDI 8-17 Anderso 00:00: n 00 ETHER DRUG Active High Anaphylaxis 2017-0 MD INGREDI 8-17 Anderso 00:00: n 00 ETHER DRUG Active High Anaphylaxis 2017-0 MD INGREDI 8-17 Anderso 00:00: n 00 ETHER DRUG Active High Anaphylaxis 2017-0 MD INGREDI 8-17 Anderso 00:00: n 00 ETHER DRUG Active High Anaphylaxis 2017-0 MD INGREDI 8-17 Anderso 00:00: n 00 ETHER DRUG Active High Anaphylaxis 2017-0 MD INGREDI 8-17 Anderso 00:00: n 00 ETHER DRUG Active High Anaphylaxis 2017-0 MD INGREDI 8-17 Anderso 00:00: n 00 ETHER DRUG Active High Anaphylaxis 2017-0 MD INGREDI 8-17 Anderso 00:00: n 00 ETHER DRUG Active High Anaphylaxis 2017-0 MD INGREDI 8-17 Anderso 00:00: n 00 ETHER DRUG Active High Anaphylaxis 2017-0 MD INGREDI 8-17 Anderso 00:00: n 00 ETHER DRUG Active High Anaphylaxis 2017-0 MD INGREDI 8-17 Anderso 00:00: n 00 ETHER DRUG Active High Anaphylaxis 2017-0 MD INGREDI 8-17 Anderso 00:00: n 00 ETHER DRUG Active High Anaphylaxis 2017-0 MD INGREDI 8-17 Anderso 00:00: n 00 ETHER DRUG Active High Anaphylaxis 2017-0 MD INGREDI 8-17 Anderso 00:00: n 00 ETHER DRUG Active High Anaphylaxis 2017-0 MD INGREDI 8-17 Anderso 00:00: n 00 ETHER DRUG Active High Anaphylaxis 2017-0 MD INGREDI 8-17 Anderso 00:00: n 00 ETHER DRUG Active High Anaphylaxis 2017-0 MD INGREDI 8-17 Anderso 00:00: n 00 ETHER DRUG Active High Anaphylaxis 2017-0 MD INGREDI 8-17 Anderso 00:00: n 00 ETHER DRUG Active High Anaphylaxis 2017-0 MD INGREDI 8-17 Anderso 00:00: n 00 ETHER DRUG Active High Anaphylaxis 2017-0 MD INGREDI 8-17 Anderso 00:00: n 00 ETHER DRUG Active High Anaphylaxis 2017-0 MD INGREDI 8-17 Anderso 00:00: n 00 ETHER DRUG Active High Anaphylaxis 2017-0 MD INGREDI 8-17 Anderso 00:00: n 00 ETHER DRUG Active High Anaphylaxis 2017-0 MD INGREDI 8-17 Anderso 00:00: n 00 ETHER DRUG Active High Anaphylaxis 2017-0 MD INGREDI 8-17 Anderso 00:00: n 00 ETHER DRUG Active High Anaphylaxis 2017-0 MD INGREDI 8-17 Anderso 00:00: n 00 ETHER DRUG Active High Anaphylaxis 2017-0 MD INGREDI 8-17 Anderso 00:00: n 00 ETHER DRUG Active High Anaphylaxis 2017-0 MD INGREDI 8-17 Anderso 00:00: n 00 ETHER DRUG Active High Anaphylaxis 2017-0 MD INGREDI 8-17 Anderso 00:00: n 00 ETHER DRUG Active High Anaphylaxis 2017-0 MD INGREDI 8-17 Anderso 00:00: n 00 ETHER DRUG Active High Anaphylaxis 2017-0 MD INGREDI 8-17 Anderso 00:00: n 00 ETHER DRUG Active High Anaphylaxis 2017-0 MD INGREDI 8-17 Anderso 00:00: n 00 ETHER DRUG Active High Anaphylaxis 2017-0 MD INGREDI 8-17 Anderso 00:00: n 00 ETHER DRUG Active High Anaphylaxis 2017-0 MD INGREDI 8-17 Anderso 00:00: n 00 ETHER DRUG Active High Anaphylaxis 2017-0 MD INGREDI 8-17 Anderso 00:00: n 00 ETHER DRUG Active High Anaphylaxis 2017-0 MD INGREDI 8-17 Anderso 00:00: n 00 ETHER DRUG Active High Anaphylaxis 2017-0 MD INGREDI 8-17 Anderso 00:00: n 00 ETHER DRUG Active High Anaphylaxis 2017-0 MD INGREDI 8-17 Anderso 00:00: n 00 ETHER DRUG Active High Anaphylaxis 2017-0 MD INGREDI 8-17 Anderso 00:00: n 00 ETHER DRUG Active High Anaphylaxis 2017-0 MD INGREDI 8-17 Anderso 00:00: n 00 ETHER DRUG Active High Anaphylaxis 2017-0 MD INGREDI 8-17 Anderso 00:00: n 00 ETHER DRUG Active High Anaphylaxis 2017-0 MD INGREDI 8-17 Anderso 00:00: n 00 ETHER DRUG Active High Anaphylaxis 2017-0 MD INGREDI 8-17 Anderso 00:00: n 00 ETHER DRUG Active High Anaphylaxis 2017-0 MD INGREDI 8-17 Anderso 00:00: n 00 ETHER DRUG Active High Anaphylaxis 2017-0 MD INGREDI 8-17 Anderso 00:00: n 00 ETHER DRUG Active High Anaphylaxis 2017-0 MD INGREDI 8-17 Anderso 00:00: n 00 ETHER DRUG Active High Anaphylaxis 2017-0 MD INGREDI 8-17 Anderso 00:00: n 00 ETHER DRUG Active High Anaphylaxis 2017-0 MD INGREDI 8-17 Anderso 00:00: n 00 ETHER DRUG Active High Anaphylaxis 2017-0 MD INGREDI 8-17 Anderso 00:00: n 00 ETHER DRUG Active High Anaphylaxis 2017-0 MD INGREDI 8-17 Anderso 00:00: n 00 ETHER DRUG Active High Anaphylaxis 2017-0 MD INGREDI 8-17 Anderso 00:00: n 00 ETHER DRUG Active High Anaphylaxis 2017-0 MD INGREDI 8-17 Anderso 00:00: n 00 ETHER DRUG Active High Anaphylaxis 2017-0 MD INGREDI 8-17 Anderso 00:00: n 00 ETHER DRUG Active High Anaphylaxis 2017-0 MD INGREDI 8-17 Anderso 00:00: n 00 ETHER DRUG Active High Anaphylaxis 2017-0 MD INGREDI 8-17 Anderso 00:00: n 00 ETHER DRUG Active High Anaphylaxis 2017-0 MD INGREDI 8-17 Anderso 00:00: n 00 ETHER DRUG Active High Anaphylaxis 2017-0 MD INGREDI 8-17 Anderso 00:00: n 00 ETHER DRUG Active High Anaphylaxis 2017-0 MD INGREDI 8-17 Anderso 00:00: n 00 ETHER DRUG Active High Anaphylaxis 2017-0 MD INGREDI 8-17 Anderso 00:00: n 00 ETHER DRUG Active High Anaphylaxis 2017-0 MD INGREDI 8-17 Anderso 00:00: n 00 ETHER DRUG Active High Anaphylaxis 2017-0 MD INGREDI 8-17 Anderso 00:00: n 00 ETHER DRUG Active High Anaphylaxis 2017-0 MD INGREDI 8-17 Anderso 00:00: n 00 ETHER DRUG Active High Anaphylaxis 2017-0 MD INGREDI 8-17 Anderso 00:00: n 00 ETHER DRUG Active High Anaphylaxis 2017-0 MD INGREDI 8-17 Anderso 00:00: n 00 ETHER DRUG Active High Anaphylaxis 2017-0 MD INGREDI 8-17 Anderso 00:00: n 00 ETHER DRUG Active High Anaphylaxis 2017-0 MD INGREDI 8-17 Anderso 00:00: n 00 ETHER DRUG Active High Anaphylaxis 2017-0 MD INGREDI 8-17 Anderso 00:00: n 00 ETHER DRUG Active High Anaphylaxis 2017-0 MD INGREDI 8-17 Anderso 00:00: n 00 ETHER DRUG Active High Anaphylaxis 2017-0 MD INGREDI 8-17 Anderso 00:00: n 00 ETHER DRUG Active High Anaphylaxis 2017-0 MD INGREDI 8-17 Anderso 00:00: n 00 ETHER DRUG Active High Anaphylaxis 2017-0 MD INGREDI 8-17 Anderso 00:00: n 00 ETHER DRUG Active High Anaphylaxis 2017-0 MD INGREDI 8-17 Anderso 00:00: n 00 ETHER DRUG Active High Anaphylaxis 2017-0 MD INGREDI 8-17 Anderso 00:00: n 00 ETHER DRUG Active High Anaphylaxis 2017-0 MD INGREDI 8-17 Anderso 00:00: n 00 ETHER DRUG Active High Anaphylaxis 2017-0 MD INGREDI 8-17 Anderso 00:00: n 00 ETHER DRUG Active High Anaphylaxis 2017-0 MD INGREDI 8-17 Anderso 00:00: n 00 ETHER DRUG Active High Anaphylaxis 2017-0 MD INGREDI 8-17 Anderso 00:00: n 00 ETHER DRUG Active High Anaphylaxis 2017-0 MD INGREDI 8-17 Anderso 00:00: n 00 ETHER DRUG Active High Anaphylaxis 2017-0 MD INGREDI 8-17 Anderso 00:00: n 00 ETHER DRUG Active High Anaphylaxis 2017-0 MD INGREDI 8-17 Anderso 00:00: n 00 ETHER DRUG Active High Anaphylaxis 2017-0 MD INGREDI 8-17 Anderso 00:00: n 00 ETHER DRUG Active High Anaphylaxis 2017-0 MD INGREDI 8-17 Anderso 00:00: n 00 ETHER DRUG Active High Anaphylaxis 2017-0 MD INGREDI 8-17 Anderso 00:00: n 00 ETHER DRUG Active High Anaphylaxis 2017-0 MD INGREDI 8-17 Anderso 00:00: n 00 ETHER DRUG Active High Anaphylaxis 2017-0 MD INGREDI 8-17 Anderso 00:00: n 00 ETHER DRUG Active High Anaphylaxis 2017-0 MD INGREDI 8-17 Anderso 00:00: n 00 ETHER DRUG Active High Anaphylaxis 2017-0 MD INGREDI 8-17 Anderso 00:00: n 00 ETHER DRUG Active High Anaphylaxis 2017-0 MD INGREDI 8-17 Anderso 00:00: n 00 ETHER DRUG Active High Anaphylaxis 2017-0 MD INGREDI 8-17 Anderso 00:00: n 00 ETHER DRUG Active High Anaphylaxis 2017-0 MD INGREDI 8-17 Anderso 00:00: n 00 ETHER DRUG Active High Anaphylaxis 2017-0 MD INGREDI 8-17 Anderso 00:00: n 00 ETHER DRUG Active High Anaphylaxis 2017-0 MD INGREDI 8-17 Anderso 00:00: n 00 ETHER DRUG Active High Anaphylaxis 2017-0 MD INGREDI 8-17 Anderso 00:00: n 00 ETHER DRUG Active High Anaphylaxis 2017-0 MD INGREDI 8-17 Anderso 00:00: n 00 ETHER DRUG Active High Anaphylaxis 2017-0 MD INGREDI 8-17 Anderso 00:00: n 00 ETHER DRUG Active High Anaphylaxis 2017-0 MD INGREDI 8-17 Anderso 00:00: n 00 ETHER DRUG Active High Anaphylaxis 2017-0 MD INGREDI 8-17 Anderso 00:00: n 00 ETHER DRUG Active High Anaphylaxis 2017-0 MD INGREDI 8-17 Anderso 00:00: n 00 ETHER DRUG Active High Anaphylaxis 2017-0 MD INGREDI 8-17 Anderso 00:00: n 00 ETHER DRUG Active High Anaphylaxis 2017-0 MD INGREDI 8-17 Anderso 00:00: n 00 ETHER DRUG Active High Anaphylaxis 2017-0 MD INGREDI 8-17 Anderso 00:00: n 00 ETHER DRUG Active High Anaphylaxis 2017-0 MD INGREDI 8-17 Anderso 00:00: n 00 ETHER DRUG Active High Anaphylaxis 2017-0 MD INGREDI 8-17 Anderso 00:00: n 00 ETHER DRUG Active High Anaphylaxis 2017-0 MD INGREDI 8-17 Anderso 00:00: n 00 ETHER DRUG Active High Anaphylaxis 2017-0 MD INGREDI 8-17 Anderso 00:00: n 00 ETHER DRUG Active High Anaphylaxis 2017-0 MD INGREDI 8-17 Anderso 00:00: n 00 ETHER DRUG Active High Anaphylaxis 2017-0 MD INGREDI 8-17 Anderso 00:00: n 00 ETHER DRUG Active High Anaphylaxis 2017-0 MD INGREDI 8-17 Anderso 00:00: n 00 ETHER DRUG Active High Anaphylaxis 2017-0 MD INGREDI 8-17 Anderso 00:00: n 00 ETHER DRUG Active High Anaphylaxis 2017-0 MD INGREDI 8-17 Anderso 00:00: n 00 ETHER DRUG Active High Anaphylaxis 2017-0 MD INGREDI 8-17 Anderso 00:00: n 00 ETHER DRUG Active High Anaphylaxis 2017-0 MD INGREDI 8-17 Anderso 00:00: n 00 ETHER DRUG Active High Anaphylaxis 2017-0 MD INGREDI 8-17 Anderso 00:00: n 00 Adhesive Propensi Active Hives 2016-1 Univer s ty to 0-26 ity of adverse 00:00: [place] reaction 00 [facility] [place] ADHESIVE Drug Active Hives 2016-1 [facility] Class 0-26 ity of 00:00: [place] [facility] [place] SILVER DRUG Active Rash 2016-1 Univers INGREDI 0-26 ity of 00:00: [place] [facility] Silver Propensi Active Rash 2016-1 Univers ty to 0-26 ity of adverse 00:00: [place] reaction 00 [facility] Adhesive Propensi Active Hives 2016-1 Univer s ty to 0-26 ity of adverse 00:00: [place] reaction 00 MD [facility] Silver Propensi Active Rash 2016-1 Univers ty to 0-26 ity of adverse 00:00: [place] reaction 00 MD [facility] SILVER DRUG Active Low Rash 2015-1 MD INGREDI 0-26 Anderso 00:00: n 00 ADHESIVE Drug Active Hives 2015- MD Class 0-26 Anderso 00:00: n 00 SILVER DRUG Active Low Rash 2015-1 MD INGREDI 0-26 Anderso 00:00: n 00 ADHESIVE Drug Active Hives 2015- MD Class 0-26 Anderso 00:00: n 00 SILVER DRUG Active Low Rash 2015- MD INGREDI 0-26 Anderso 00:00: n 00 ADHESIVE Drug Active Hives 2015- MD Class 0-26 Anderso 00:00: n 00 SILVER DRUG Active Low Rash 2015- MD INGREDI 0-26 Anderso 00:00: n 00 ADHESIVE Drug Active Hives 2015-12 MD Class 0-26 Anderso 00:00: n 00 SILVER DRUG Active Low Rash 2015- MD INGREDI 0-26 Anderso 00:00: n 00 ADHESIVE Drug Active Hives 2015-12 MD Class 0-26 Anderso 00:00: n 00 SILVER DRUG Active Low Rash 2015- MD INGREDI 0-26 Anderso 00:00: n 00 ADHESIVE Drug Active Hives 2015-12 MD Class 0-26 Anderso 00:00: n 00 SILVER DRUG Active Low Rash 2015-12 MD INGREDI 0-26 Anderso 00:00: n 00 ADHESIVE Drug Active Hives 2015-12 MD Class 0-26 Anderso 00:00: n 00 SILVER DRUG Active Low Rash 2015-12 MD INGREDI 0-26 Anderso 00:00: n 00 ADHESIVE Drug Active Hives 2015-12 MD Class 0-26 Anderso 00:00: n 00 SILVER DRUG Active Low Rash 2015- MD INGREDI 0-26 Anderso 00:00: n 00 ADHESIVE Drug Active Hives 2015-12 MD Class 0-26 Anderso 00:00: n 00 SILVER DRUG Active Low Rash 2015- MD INGREDI 0-26 Anderso 00:00: n 00 ADHESIVE Drug Active Hives 2015- MD Class 0-26 Anderso 00:00: n 00 SILVER DRUG Active Low Rash 2015- MD INGREDI 0-26 Anderso 00:00: n 00 ADHESIVE Drug Active Hives 2015- MD Class 0-26 Anderso 00:00: n 00 SILVER DRUG Active Low Rash 2015- MD INGREDI 0-26 Anderso 00:00: n 00 ADHESIVE Drug Active Hives 2015-12 MD Class 0-26 Anderso 00:00: n 00 SILVER DRUG Active Low Rash 2015- MD INGREDI 0-26 Anderso 00:00: n 00 ADHESIVE Drug Active Hives 2015-12 MD Class 0-26 Anderso 00:00: n 00 SILVER DRUG Active Low Rash 2015- MD INGREDI 0-26 Anderso 00:00: n 00 ADHESIVE Drug Active Hives 2015- MD Class 0-26 Anderso 00:00: n 00 SILVER DRUG Active Low Rash 2015- MD INGREDI 0-26 Anderso 00:00: n 00 ADHESIVE Drug Active Hives 2015-12 MD Class 0-26 Anderso 00:00: n 00 SILVER DRUG Active Low Rash 2015- MD INGREDI 0-26 Anderso 00:00: n 00 ADHESIVE Drug Active Hives 2015-12 MD Class 0-26 Anderso 00:00: n 00 SILVER DRUG Active Low Rash 2015- MD INGREDI 0-26 Anderso 00:00: n 00 ADHESIVE Drug Active Hives 2015- MD Class 0-26 Anderso 00:00: n 00 SILVER DRUG Active Low Rash 2015- MD INGREDI 0-26 Anderso 00:00: n 00 ADHESIVE Drug Active Hives 2015-12 MD Class 0-26 Anderso 00:00: n 00 SILVER DRUG Active Low Rash 2015- MD INGREDI 0-26 Anderso 00:00: n 00 ADHESIVE Drug Active Hives 2015- MD Class 0-26 Anderso 00:00: n 00 SILVER DRUG Active Low Rash 2015- MD INGREDI 0-26 Anderso 00:00: n 00 ADHESIVE Drug Active Hives 2015-12 MD Class 0-26 Anderso 00:00: n 00 SILVER DRUG Active Low Rash 2015- MD INGREDI 0-26 Anderso 00:00: n 00 ADHESIVE Drug Active Hives 2015- MD Class 0-26 Anderso 00:00: n 00 SILVER DRUG Active Low Rash 2015- MD INGREDI 0-26 Anderso 00:00: n 00 ADHESIVE Drug Active Hives 2015- MD Class 0-26 Anderso 00:00: n 00 SILVER DRUG Active Low Rash 2015- MD INGREDI 0-26 Anderso 00:00: n 00 ADHESIVE Drug Active Hives 2015-12 MD Class 0-26 Anderso 00:00: n 00 SILVER DRUG Active Low Rash 2015- MD INGREDI 0-26 Anderso 00:00: n 00 ADHESIVE Drug Active Hives 2015-12 MD Class 0-26 Anderso 00:00: n 00 SILVER DRUG Active Low Rash 2015- MD INGREDI 0-26 Anderso 00:00: n 00 ADHESIVE Drug Active Hives 2015- MD Class 0-26 Anderso 00:00: n 00 SILVER DRUG Active Low Rash 2015- MD INGREDI 0-26 Anderso 00:00: n 00 ADHESIVE Drug Active Hives 2015- MD Class 0-26 Anderso 00:00: n 00 SILVER DRUG Active Low Rash 2015- MD INGREDI 0-26 Anderso 00:00: n 00 ADHESIVE Drug Active Hives 2015-12 MD Class 0-26 Anderso 00:00: n 00 SILVER DRUG Active Low Rash 2015- MD INGREDI 0-26 Anderso 00:00: n 00 ADHESIVE Drug Active Hives 2015-12 MD Class 0-26 Anderso 00:00: n 00 SILVER DRUG Active Low Rash 2015- MD INGREDI 0-26 Anderso 00:00: n 00 ADHESIVE Drug Active Hives 2015-12 MD Class 0-26 Anderso 00:00: n 00 ADHESIVE Drug Active Hives 2015- MD Class 0-26 Anderso 00:00: n 00 SILVER DRUG Active Low Rash 2015- MD INGREDI 0-26 Anderso 00:00: n 00 ADHESIVE Drug Active Hives 2015- MD Class 0-26 Anderso 00:00: n 00 SILVER DRUG Active Low Rash 2015- MD INGREDI 0-26 Anderso 00:00: n 00 ADHESIVE Drug Active Hives 2015- MD Class 0-26 Anderso 00:00: n 00 SILVER DRUG Active Low Rash 2015- MD INGREDI 0-26 Anderso 00:00: n 00 ADHESIVE Drug Active Hives 2015-12 MD Class 0-26 Anderso 00:00: n 00 SILVER DRUG Active Low Rash 2015- MD INGREDI 0-26 Anderso 00:00: n 00 ADHESIVE Drug Active Hives 2015- MD Class 0-26 Anderso 00:00: n 00 SILVER DRUG Active Low Rash 2015- MD INGREDI 0-26 Anderso 00:00: n 00 SILVER DRUG Active Low Rash 2015- MD INGREDI 0-26 Anderso 00:00: n 00 ADHESIVE Drug Active Hives 2015-12 MD Class 0-26 Anderso 00:00: n 00 SILVER DRUG Active Low Rash 2015- MD INGREDI 0-26 Anderso 00:00: n 00 ADHESIVE Drug Active Hives 2015- MD Class 0-26 Anderso 00:00: n 00 SILVER DRUG Active Low Rash 2015- MD INGREDI 0-26 Anderso 00:00: n 00 ADHESIVE Drug Active Hives 2015- MD Class 0-26 Anderso 00:00: n 00 SILVER DRUG Active Low Rash 2015- MD INGREDI 0-26 Anderso 00:00: n 00 ADHESIVE Drug Active Hives 2015-12 MD Class 0-26 Anderso 00:00: n 00 SILVER DRUG Active Low Rash 2015- MD INGREDI 0-26 Anderso 00:00: n 00 ADHESIVE Drug Active Hives 2015-12 MD Class 0-26 Anderso 00:00: n 00 ADHESIVE Drug Active Hives 2015-12 MD Class 0-26 Anderso 00:00: n 00 SILVER DRUG Active Low Rash 2015- MD INGREDI 0-26 Anderso 00:00: n 00 ADHESIVE Drug Active Hives 2015- MD Class 0-26 Anderso 00:00: n 00 SILVER DRUG Active Low Rash 2015- MD INGREDI 0-26 Anderso 00:00: n 00 ADHESIVE Drug Active Hives 2015- MD Class 0-26 Anderso 00:00: n 00 SILVER DRUG Active Low Rash 2015- MD INGREDI 0-26 Anderso 00:00: n 00 ADHESIVE Drug Active Hives 2015- MD Class 0-26 Anderso 00:00: n 00 SILVER DRUG Active Low Rash 2015- MD INGREDI 0-26 Anderso 00:00: n 00 ADHESIVE Drug Active Hives 2015- MD Class 0-26 Anderso 00:00: n 00 SILVER DRUG Active Low Rash 2015- MD INGREDI 0-26 Anderso 00:00: n 00 SILVER DRUG Active Low Rash 2015- MD INGREDI 0-26 Anderso 00:00: n 00 ADHESIVE Drug Active Hives 2015- MD Class 0-26 Anderso 00:00: n 00 SILVER DRUG Active Low Rash 2015- MD INGREDI 0-26 Anderso 00:00: n 00 ADHESIVE Drug Active Hives 2015- MD Class 0-26 Anderso 00:00: n 00 SILVER DRUG Active Low Rash 2015- MD INGREDI 0-26 Anderso 00:00: n 00 ADHESIVE Drug Active Hives 2015- MD Class 0-26 Anderso 00:00: n 00 SILVER DRUG Active Low Rash 2015- MD INGREDI 0-26 Anderso 00:00: n 00 ADHESIVE Drug Active Hives 2015-12 MD Class 0-26 Anderso 00:00: n 00 SILVER DRUG Active Low Rash 2015-12 MD INGREDI 0-26 Anderso 00:00: n 00 ADHESIVE Drug Active Hives 2015-12 MD Class 0-26 Anderso 00:00: n 00 SILVER DRUG Active Low Rash 2015-12 MD INGREDI 0-26 Anderso 00:00: n 00 ADHESIVE Drug Active Hives 2015-12 MD Class 0-26 Anderso 00:00: n 00 SILVER DRUG Active Low Rash 2015-12 MD INGREDI 0-26 Anderso 00:00: n 00 ADHESIVE Drug Active Hives 2015-12 MD Class 0-26 Anderso 00:00: n 00 ADHESIVE Drug Active Hives 2015-12 MD Class 0-26 Anderso 00:00: n 00 SILVER DRUG Active Low Rash 2015-12 MD INGREDI 0-26 Anderso 00:00: n 00 ADHESIVE Drug Active Hives 2015- MD Class 0-26 Anderso 00:00: n 00 SILVER DRUG Active Low Rash 2015- MD INGREDI 0-26 Anderso 00:00: n 00 ADHESIVE Drug Active Hives 2015-12 MD Class 0-26 Anderso 00:00: n 00 SILVER DRUG Active Low Rash 2015- MD INGREDI 0-26 Anderso 00:00: n 00 ADHESIVE Drug Active Hives 2015- MD Class 0-26 Anderso 00:00: n 00 SILVER DRUG Active Low Rash 2015- MD INGREDI 0-26 Anderso 00:00: n 00 ADHESIVE Drug Active Hives 2015- MD Class 0-26 Anderso 00:00: n 00 SILVER DRUG Active Low Rash 2015- MD INGREDI 0-26 Anderso 00:00: n 00 ADHESIVE Drug Active Hives 2015-12 MD Class 0-26 Anderso 00:00: n 00 SILVER DRUG Active Low Rash 2015- MD INGREDI 0-26 Anderso 00:00: n 00 SILVER DRUG Active Low Rash 2015- MD INGREDI 0-26 Anderso 00:00: n 00 ADHESIVE Drug Active Hives 2015- MD Class 0-26 Anderso 00:00: n 00 SILVER DRUG Active Low Rash 2015- MD INGREDI 0-26 Anderso 00:00: n 00 ADHESIVE Drug Active Hives 2015- MD Class 0-26 Anderso 00:00: n 00 SILVER DRUG Active Low Rash 2015- MD INGREDI 0-26 Anderso 00:00: n 00 ADHESIVE Drug Active Hives 2015-12 MD Class 0-26 Anderso 00:00: n 00 SILVER DRUG Active Low Rash 2015-12 MD INGREDI 0-26 Anderso 00:00: n 00 ADHESIVE Drug Active Hives 2015-12 MD Class 0-26 Anderso 00:00: n 00 SILVER DRUG Active Low Rash 2015- MD INGREDI 0-26 Anderso 00:00: n 00 ADHESIVE Drug Active Hives 2015-12 MD Class 0-26 Anderso 00:00: n 00 ADHESIVE Drug Active Hives 2015-12 MD Class 0-26 Anderso 00:00: n 00 SILVER DRUG Active Low Rash 2015-12 MD INGREDI 0-26 Anderso 00:00: n 00 ADHESIVE Drug Active Hives 2015-12 MD Class 0-26 Anderso 00:00: n 00 SILVER DRUG Active Low Rash 2015- MD INGREDI 0-26 Anderso 00:00: n 00 ADHESIVE Drug Active Hives 2015- MD Class 0-26 Anderso 00:00: n 00 SILVER DRUG Active Low Rash 2015- MD INGREDI 0-26 Anderso 00:00: n 00 ADHESIVE Drug Active Hives 2015- MD Class 0-26 Anderso 00:00: n 00 SILVER DRUG Active Low Rash 2015- MD INGREDI 0-26 Anderso 00:00: n 00 ADHESIVE Drug Active Hives 2015- MD Class 0-26 Anderso 00:00: n 00 SILVER DRUG Active Low Rash 2015- MD INGREDI 0-26 Anderso 00:00: n 00 ADHESIVE Drug Active Hives 2015-12 MD Class 0-26 Anderso 00:00: n 00 SILVER DRUG Active Low Rash 2015- MD INGREDI 0-26 Anderso 00:00: n 00 SILVER DRUG Active Low Rash 2015- MD INGREDI 0-26 Anderso 00:00: n 00 ADHESIVE Drug Active Hives 2015- MD Class 0-26 Anderso 00:00: n 00 SILVER DRUG Active Low Rash 2015- MD INGREDI 0-26 Anderso 00:00: n 00 ADHESIVE Drug Active Hives 2015- MD Class 0-26 Anderso 00:00: n 00 SILVER DRUG Active Low Rash 2015- MD INGREDI 0-26 Anderso 00:00: n 00 ADHESIVE Drug Active Hives 2015-12 MD Class 0-26 Anderso 00:00: n 00 SILVER DRUG Active Low Rash 2015-12 MD INGREDI 0-26 Anderso 00:00: n 00 ADHESIVE Drug Active Hives 2015-12 MD Class 0-26 Anderso 00:00: n 00 SILVER DRUG Active Low Rash 2015- MD INGREDI 0-26 Anderso 00:00: n 00 ADHESIVE Drug Active Hives 2015-12 MD Class 0-26 Anderso 00:00: n 00 SILVER DRUG Active Low Rash 2015-12 MD INGREDI 0-26 Anderso 00:00: n 00 ADHESIVE Drug Active Hives 2015-12 MD Class 0-26 Anderso 00:00: n 00 SILVER DRUG Active Low Rash 2015-12 MD INGREDI 0-26 Anderso 00:00: n 00 ADHESIVE Drug Active Hives 2015-12 MD Class 0-26 Anderso 00:00: n 00 SILVER DRUG Active Low Rash 2015- MD INGREDI 0-26 Anderso 00:00: n 00 ADHESIVE Drug Active Hives 2015-12 MD Class 0-26 Anderso 00:00: n 00 ADHESIVE Drug Active Hives 2015-12 MD Class 0-26 Anderso 00:00: n 00 SILVER DRUG Active Low Rash 2015-12 MD INGREDI 0-26 Anderso 00:00: n 00 ADHESIVE Drug Active Hives 2015-12 MD Class 0-26 Anderso 00:00: n 00 SILVER DRUG Active Low Rash 2015- MD INGREDI 0-26 Anderso 00:00: n 00 ADHESIVE Drug Active Hives 2015-12 MD Class 0-26 Anderso 00:00: n 00 SILVER DRUG Active Low Rash 2015- MD INGREDI 0-26 Anderso 00:00: n 00 ADHESIVE Drug Active Hives 2016-1 MD Class 0-26 Anderso 00:00: n 00 SILVER DRUG Active Low Rash 2015- MD INGREDI 0-26 Anderso 00:00: n 00 ADHESIVE Drug Active Hives 2015- MD Class 0-26 Anderso 00:00: n 00 SILVER DRUG Active Low Rash 2015- MD INGREDI 0-26 Anderso 00:00: n 00 SILVER DRUG Active Low Rash 2015- MD INGREDI 0-26 Anderso 00:00: n 00 ADHESIVE Drug Active Hives 2015- MD Class 0-26 Anderso 00:00: n 00 SILVER DRUG Active Low Rash 2015- MD INGREDI 0-26 Anderso 00:00: n 00 ADHESIVE Drug Active Hives 2015- MD Class 0-26 Anderso 00:00: n 00 SILVER DRUG Active Low Rash 2015- MD INGREDI 0-26 Anderso 00:00: n 00 ADHESIVE Drug Active Hives 2015- MD Class 0-26 Anderso 00:00: n 00 SILVER DRUG Active Low Rash 2015- MD INGREDI 0-26 Anderso 00:00: n 00 ADHESIVE Drug Active Hives 2015- MD Class 0-26 Anderso 00:00: n 00 SILVER DRUG Active Low Rash 2015- MD INGREDI 0-26 Anderso 00:00: n 00 ADHESIVE Drug Active Hives 2015- MD Class 0-26 Anderso 00:00: n 00 SILVER DRUG Active Low Rash 2015- MD INGREDI 0-26 Anderso 00:00: n 00 ADHESIVE Drug Active Hives 2015- MD Class 0-26 Anderso 00:00: n 00 SILVER DRUG Active Low Rash 2015- MD INGREDI 0-26 Anderso 00:00: n 00 ADHESIVE Drug Active Hives 2015- MD Class 0-26 Anderso 00:00: n 00 ADHESIVE Drug Active Hives 2015- MD Class 0-26 Anderso 00:00: n 00 SILVER DRUG Active Low Rash 2015- MD INGREDI 0-26 Anderso 00:00: n 00 ADHESIVE Drug Active Hives 2015- MD Class 0-26 Anderso 00:00: n 00 SILVER DRUG Active Low Rash 2015- MD INGREDI 0-26 Anderso 00:00: n 00 ADHESIVE Drug Active Hives 2015- MD Class 0-26 Anderso 00:00: n 00 SILVER DRUG Active Low Rash 2015- MD INGREDI 0-26 Anderso 00:00: n 00 ADHESIVE Drug Active Hives 2015- MD Class 0-26 Anderso 00:00: n 00 SILVER DRUG Active Low Rash 2015- MD INGREDI 0-26 Anderso 00:00: n 00 ADHESIVE Drug Active Hives 2015-12 MD Class 0-26 Anderso 00:00: n 00 SILVER DRUG Active Low Rash 2015- MD INGREDI 0-26 Anderso 00:00: n 00 ADHESIVE Drug Active Hives 2015-12 MD Class 0-26 Anderso 00:00: n 00 SILVER DRUG Active Low Rash 2015- MD INGREDI 0-26 Anderso 00:00: n 00 SILVER DRUG Active Low Rash 2015- MD INGREDI 0-26 Anderso 00:00: n 00 ADHESIVE Drug Active Hives 2015-12 MD Class 0-26 Anderso 00:00: n 00 SILVER DRUG Active Low Rash 2015-12 MD INGREDI 0-26 Anderso 00:00: n 00 ADHESIVE Drug Active Hives 2015-12 MD Class 0-26 Anderso 00:00: n 00 SILVER DRUG Active Low Rash 2015-12 MD INGREDI 0-26 Anderso 00:00: n 00 ADHESIVE Drug Active Hives 2015- MD Class 0-26 Anderso 00:00: n 00 SILVER DRUG Active Low Rash 2015- MD INGREDI 0-26 Anderso 00:00: n 00 ADHESIVE Drug Active Hives 2015- MD Class 0-26 Anderso 00:00: n 00 SILVER DRUG Active Low Rash 2015- MD INGREDI 0-26 Anderso 00:00: n 00 ADHESIVE Drug Active Hives 2015- MD Class 0-26 Anderso 00:00: n 00 SILVER DRUG Active Low Rash 2015- MD INGREDI 0-26 Anderso 00:00: n 00 ADHESIVE Drug Active Hives 2015- MD Class 0-26 Anderso 00:00: n 00 SILVER DRUG Active Low Rash 2015- MD INGREDI 0-26 Anderso 00:00: n 00 ADHESIVE Drug Active Hives 2015-12 MD Class 0-26 Anderso 00:00: n 00 ADHESIVE Drug Active Hives 2015-12 MD Class 0-26 Anderso 00:00: n 00 SILVER DRUG Active Low Rash 2015- MD INGREDI 0-26 Anderso 00:00: n 00 ADHESIVE Drug Active Hives 2015- MD Class 0-26 Anderso 00:00: n 00 SILVER DRUG Active Low Rash 2015- MD INGREDI 0-26 Anderso 00:00: n 00 ADHESIVE Drug Active Hives 2015-12 MD Class 0-26 Anderso 00:00: n 00 SILVER DRUG Active Low Rash 2015-12 MD INGREDI 0-26 Anderso 00:00: n 00 ADHESIVE Drug Active Hives 2015-12 MD Class 0-26 Anderso 00:00: n 00 SILVER DRUG Active Low Rash 2015-12 MD INGREDI 0-26 Anderso 00:00: n 00 ADHESIVE Drug Active Hives 2015-12 MD Class 0-26 Anderso 00:00: n 00 SILVER DRUG Active Low Rash 2015- MD INGREDI 0-26 Anderso 00:00: n 00 SILVER DRUG Active Low Rash 2015-12 MD INGREDI 0-26 Anderso 00:00: n 00 ADHESIVE Drug Active Hives 2015-12 MD Class 0-26 Anderso 00:00: n 00 SILVER DRUG Active Low Rash 2015-12 MD INGREDI 0-26 Anderso 00:00: n 00 ADHESIVE Drug Active Hives 2015-12 MD Class 0-26 Anderso 00:00: n 00 SILVER DRUG Active Low Rash 2015- MD INGREDI 0-26 Anderso 00:00: n 00 ADHESIVE Drug Active Hives 2015-12 MD Class 0-26 Anderso 00:00: n 00 SILVER DRUG Active Low Rash 2015- MD INGREDI 0-26 Anderso 00:00: n 00 ADHESIVE Drug Active Hives 2015- MD Class 0-26 Anderso 00:00: n 00 SILVER DRUG Active Low Rash 2015- MD INGREDI 0-26 Anderso 00:00: n 00 ADHESIVE Drug Active Hives 2015- MD Class 0-26 Anderso 00:00: n 00 SILVER DRUG Active Low Rash 2015- MD INGREDI 0-26 Anderso 00:00: n 00 ADHESIVE Drug Active Hives 2015-12 MD Class 0-26 Anderso 00:00: n 00 SILVER DRUG Active Low Rash 2015- MD INGREDI 0-26 Anderso 00:00: n 00 ADHESIVE Drug Active Hives 2015-12 MD Class 0-26 Anderso 00:00: n 00 ADHESIVE Drug Active Hives 2015- MD Class 0-26 Anderso 00:00: n 00 SILVER DRUG Active Low Rash 2015- MD INGREDI 0-26 Anderso 00:00: n 00 ADHESIVE Drug Active Hives 2015- MD Class 0-26 Anderso 00:00: n 00 SILVER DRUG Active Low Rash 2015- MD INGREDI 0-26 Anderso 00:00: n 00 ADHESIVE Drug Active Hives 2015-12 MD Class 0-26 Anderso 00:00: n 00 SILVER DRUG Active Low Rash 2015-12 MD INGREDI 0-26 Anderso 00:00: n 00 ADHESIVE Drug Active Hives 2015-12 MD Class 0-26 Anderso 00:00: n 00 SILVER DRUG Active Low Rash 2015- MD INGREDI 0-26 Anderso 00:00: n 00 ADHESIVE Drug Active Hives 2015-12 MD Class 0-26 Anderso 00:00: n 00 SILVER DRUG Active Low Rash 2015- MD INGREDI 0-26 Anderso 00:00: n 00 ADHESIVE Drug Active Hives 2015-12 MD Class 0-26 Anderso 00:00: n 00 SILVER DRUG Active Low Rash 2015- MD INGREDI 0-26 Anderso 00:00: n 00 SILVER DRUG Active Low Rash 2015- MD INGREDI 0-26 Anderso 00:00: n 00 ADHESIVE Drug Active Hives 2015-12 MD Class 0-26 Anderso 00:00: n 00 SILVER DRUG Active Low Rash 2015- MD INGREDI 0-26 Anderso 00:00: n 00 ADHESIVE Drug Active Hives 2015-12 MD Class 0-26 Anderso 00:00: n 00 SILVER DRUG Active Low Rash 2015-12 MD INGREDI 0-26 Anderso 00:00: n 00 ADHESIVE Drug Active Hives 2015-12 MD Class 0-26 Anderso 00:00: n 00 SILVER DRUG Active Low Rash 2015- MD INGREDI 0-26 Anderso 00:00: n 00 ADHESIVE Drug Active Hives 2015-12 MD Class 0-26 Anderso 00:00: n 00 SILVER DRUG Active Low Rash 2015- MD INGREDI 0-26 Anderso 00:00: n 00 ADHESIVE Drug Active Hives 2015-12 MD Class 0-26 Anderso 00:00: n 00 SILVER DRUG Active Low Rash 2015- MD INGREDI 0-26 Anderso 00:00: n 00 ADHESIVE Drug Active Hives 2015- MD Class 0-26 Anderso 00:00: n 00 SILVER DRUG Active Low Rash 2015- MD INGREDI 0-26 Anderso 00:00: n 00 ADHESIVE Drug Active Hives 2015- MD Class 0-26 Anderso 00:00: n 00 ADHESIVE Drug Active Hives 2015-12 MD Class 0-26 Anderso 00:00: n 00 SILVER DRUG Active Low Rash 2015- MD INGREDI 0-26 Anderso 00:00: n 00 ADHESIVE Drug Active Hives 2015-12 MD Class 0-26 Anderso 00:00: n 00 SILVER DRUG Active Low Rash 2015- MD INGREDI 0-26 Anderso 00:00: n 00 ADHESIVE Drug Active Hives 2015-12 MD Class 0-26 Anderso 00:00: n 00 SILVER DRUG Active Low Rash 2015- MD INGREDI 0-26 Anderso 00:00: n 00 ADHESIVE Drug Active Hives 2015- MD Class 0-26 Anderso 00:00: n 00 SILVER DRUG Active Low Rash 2015- MD INGREDI 0-26 Anderso 00:00: n 00 ADHESIVE Drug Active Hives 2015- MD Class 0-26 Anderso 00:00: n 00 SILVER DRUG Active Low Rash 2015- MD INGREDI 0-26 Anderso 00:00: n 00 SILVER DRUG Active Low Rash 2015- MD INGREDI 0-26 Anderso 00:00: n 00 ADHESIVE Drug Active Hives 2015-12 MD Class 0-26 Anderso 00:00: n 00 SILVER DRUG Active Low Rash 2015- MD INGREDI 0-26 Anderso 00:00: n 00 ADHESIVE Drug Active Hives 2015-12 MD Class 0-26 Anderso 00:00: n 00 SILVER DRUG Active Low Rash 2015- MD INGREDI 0-26 Anderso 00:00: n 00 ADHESIVE Drug Active Hives 2015- MD Class 0-26 Anderso 00:00: n 00 SILVER DRUG Active Low Rash 2015- MD INGREDI 0-26 Anderso 00:00: n 00 ADHESIVE Drug Active Hives 2015-12 MD Class 0-26 Anderso 00:00: n 00 SILVER DRUG Active Low Rash 2015- MD INGREDI 0-26 Anderso 00:00: n 00 ADHESIVE Drug Active Hives 2015- MD Class 0-26 Anderso 00:00: n 00 ADHESIVE Drug Active Hives 2015- MD Class 0-26 Anderso 00:00: n 00 SILVER DRUG Active Low Rash 2015- MD INGREDI 0-26 Anderso 00:00: n 00 ADHESIVE Drug Active Hives 2015-12 MD Class 0-26 Anderso 00:00: n 00 SILVER DRUG Active Low Rash 2015- MD INGREDI 0-26 Anderso 00:00: n 00 ADHESIVE Drug Active Hives 2015-12 MD Class 0-26 Anderso 00:00: n 00 SILVER DRUG Active Low Rash 2015- MD INGREDI 0-26 Anderso 00:00: n 00 ADHESIVE Drug Active Hives 2015-12 MD Class 0-26 Anderso 00:00: n 00 SILVER DRUG Active Low Rash 2015-12 MD INGREDI 0-26 Anderso 00:00: n 00 ADHESIVE Drug Active Hives 2015-12 MD Class 0-26 Anderso 00:00: n 00 SILVER DRUG Active Low Rash 2015- MD INGREDI 0-26 Anderso 00:00: n 00 SILVER DRUG Active Low Rash 2015- MD INGREDI 0-26 Anderso 00:00: n 00 ADHESIVE Drug Active Hives 2015- MD Class 0-26 Anderso 00:00: n 00 ASPIRIN DRUG Active SOB 2014-12 [facility] [place] [facility] Aspirin Propensi Active Shortness Of 2014-12 U nivers ty to Breath 0-22 ity of adverse 00:00: [place] reaction 00 MD [facility] ASPIRIN DRUG Active High Sob 2014-12 MD INGREDI 0-22 Anderso 00:00: n 00 ASPIRIN DRUG Active High Sob 2014-12 MD INGREDI 0-22 Anderso 00:00: n 00 ASPIRIN DRUG Active High Sob 2014-12 MD INGREDI 0-22 Anderso 00:00: n 00 ASPIRIN DRUG Active High Sob 2014-12 MD INGREDI 0-22 Anderso 00:00: n 00 ASPIRIN DRUG Active High Sob 2014-12 MD INGREDI 0-22 Anderso 00:00: n 00 ASPIRIN DRUG Active High Sob 2015-1 MD INGREDI 0-22 Anderso 00:00: n 00 ASPIRIN DRUG Active High Sob 2015-1 MD INGREDI 0-22 Anderso 00:00: n 00 ASPIRIN DRUG Active High Sob 2015-1 MD INGREDI 0-22 Anderso 00:00: n 00 ASPIRIN DRUG Active High Sob 2015-1 MD INGREDI 0-22 Anderso 00:00: n 00 ASPIRIN DRUG Active High Sob 2015-1 MD INGREDI 0-22 Anderso 00:00: n 00 ASPIRIN DRUG Active High Sob 2015-1 MD INGREDI 0-22 Anderso 00:00: n 00 ASPIRIN DRUG Active High Sob 2015-1 MD INGREDI 0-22 Anderso 00:00: n 00 ASPIRIN DRUG Active High Sob 2015-1 MD INGREDI 0-22 Anderso 00:00: n 00 ASPIRIN DRUG Active High Sob 2015-1 MD INGREDI 0-22 Anderso 00:00: n 00 ASPIRIN DRUG Active High Sob 2015-1 MD INGREDI 0-22 Anderso 00:00: n 00 ASPIRIN DRUG Active High Sob 2015-1 MD INGREDI 0-22 Anderso 00:00: n 00 ASPIRIN DRUG Active High Sob 2015-1 MD INGREDI 0-22 Anderso 00:00: n 00 ASPIRIN DRUG Active High Sob 2015-1 MD INGREDI 0-22 Anderso 00:00: n 00 ASPIRIN DRUG Active High Sob 2015-1 MD INGREDI 0-22 Anderso 00:00: n 00 ASPIRIN DRUG Active High Sob 2015-1 MD INGREDI 0-22 Anderso 00:00: n 00 ASPIRIN DRUG Active High Sob 2015-1 MD INGREDI 0-22 Anderso 00:00: n 00 ASPIRIN DRUG Active High Sob 2015-1 MD INGREDI 0-22 Anderso 00:00: n 00 ASPIRIN DRUG Active High Sob 2015-1 MD INGREDI 0-22 Anderso 00:00: n 00 ASPIRIN DRUG Active High Sob 2015-1 MD INGREDI 0-22 Anderso 00:00: n 00 ASPIRIN DRUG Active High Sob 2015-1 MD INGREDI 0-22 Anderso 00:00: n 00 ASPIRIN DRUG Active High Sob 2015-1 MD INGREDI 0-22 Anderso 00:00: n 00 ASPIRIN DRUG Active High Sob 2015-1 MD INGREDI 0-22 Anderso 00:00: n 00 ASPIRIN DRUG Active High Sob 2015-1 MD INGREDI 0-22 Anderso 00:00: n 00 ASPIRIN DRUG Active High Sob 2015-1 MD INGREDI 0-22 Anderso 00:00: n 00 ASPIRIN DRUG Active High Sob 2015-1 MD INGREDI 0-22 Anderso 00:00: n 00 ASPIRIN DRUG Active High Sob 2015-1 MD INGREDI 0-22 Anderso 00:00: n 00 ASPIRIN DRUG Active High Sob 2015-1 MD INGREDI 0-22 Anderso 00:00: n 00 ASPIRIN DRUG Active High Sob 2015-1 MD INGREDI 0-22 Anderso 00:00: n 00 ASPIRIN DRUG Active High Sob 2015-1 MD INGREDI 0-22 Anderso 00:00: n 00 ASPIRIN DRUG Active High Sob 2015-1 MD INGREDI 0-22 Anderso 00:00: n 00 ASPIRIN DRUG Active High Sob 2015-1 MD INGREDI 0-22 Anderso 00:00: n 00 ASPIRIN DRUG Active High Sob 2015-1 MD INGREDI 0-22 Anderso 00:00: n 00 ASPIRIN DRUG Active High Sob 2015-1 MD INGREDI 0-22 Anderso 00:00: n 00 ASPIRIN DRUG Active High Sob 2015-1 MD INGREDI 0-22 Anderso 00:00: n 00 ASPIRIN DRUG Active High Sob 2015-1 MD INGREDI 0-22 Anderso 00:00: n 00 ASPIRIN DRUG Active High Sob 2015-1 MD INGREDI 0-22 Anderso 00:00: n 00 ASPIRIN DRUG Active High Sob 2015-1 MD INGREDI 0-22 Anderso 00:00: n 00 ASPIRIN DRUG Active High Sob 2015-1 MD INGREDI 0-22 Anderso 00:00: n 00 ASPIRIN DRUG Active High Sob 2015-1 MD INGREDI 0-22 Anderso 00:00: n 00 ASPIRIN DRUG Active High Sob 2015-1 MD INGREDI 0-22 Anderso 00:00: n 00 ASPIRIN DRUG Active High Sob 2015-1 MD INGREDI 0-22 Anderso 00:00: n 00 ASPIRIN DRUG Active High Sob 2015-1 MD INGREDI 0-22 Anderso 00:00: n 00 ASPIRIN DRUG Active High Sob 2015-1 MD INGREDI 0-22 Anderso 00:00: n 00 ASPIRIN DRUG Active High Sob 2015-1 MD INGREDI 0-22 Anderso 00:00: n 00 ASPIRIN DRUG Active High Sob 2015-1 MD INGREDI 0-22 Anderso 00:00: n 00 ASPIRIN DRUG Active High Sob 2015-1 MD INGREDI 0-22 Anderso 00:00: n 00 ASPIRIN DRUG Active High Sob 2015-1 MD INGREDI 0-22 Anderso 00:00: n 00 ASPIRIN DRUG Active High Sob 2015-1 MD INGREDI 0-22 Anderso 00:00: n 00 ASPIRIN DRUG Active High Sob 2015-1 MD INGREDI 0-22 Anderso 00:00: n 00 ASPIRIN DRUG Active High Sob 2015-1 MD INGREDI 0-22 Anderso 00:00: n 00 ASPIRIN DRUG Active High Sob 2015-1 MD INGREDI 0-22 Anderso 00:00: n 00 ASPIRIN DRUG Active High Sob 2015-1 MD INGREDI 0-22 Anderso 00:00: n 00 ASPIRIN DRUG Active High Sob 2015-1 MD INGREDI 0-22 Anderso 00:00: n 00 ASPIRIN DRUG Active High Sob 2015-1 MD INGREDI 0-22 Anderso 00:00: n 00 ASPIRIN DRUG Active High Sob 2015-1 MD INGREDI 0-22 Anderso 00:00: n 00 ASPIRIN DRUG Active High Sob 2015-1 MD INGREDI 0-22 Anderso 00:00: n 00 ASPIRIN DRUG Active High Sob 2015-1 MD INGREDI 0-22 Anderso 00:00: n 00 ASPIRIN DRUG Active High Sob 2015-1 MD INGREDI 0-22 Anderso 00:00: n 00 ASPIRIN DRUG Active High Sob 2015-1 MD INGREDI 0-22 Anderso 00:00: n 00 ASPIRIN DRUG Active High Sob 2015-1 MD INGREDI 0-22 Anderso 00:00: n 00 ASPIRIN DRUG Active High Sob 2015-1 MD INGREDI 0-22 Anderso 00:00: n 00 ASPIRIN DRUG Active High Sob 2015-1 MD INGREDI 0-22 Anderso 00:00: n 00 ASPIRIN DRUG Active High Sob 2015-1 MD INGREDI 0-22 Anderso 00:00: n 00 ASPIRIN DRUG Active High Sob 2015-1 MD INGREDI 0-22 Anderso 00:00: n 00 ASPIRIN DRUG Active High Sob 2015-1 MD INGREDI 0-22 Anderso 00:00: n 00 ASPIRIN DRUG Active High Sob 2015-1 MD INGREDI 0-22 Anderso 00:00: n 00 ASPIRIN DRUG Active High Sob 2015-1 MD INGREDI 0-22 Anderso 00:00: n 00 ASPIRIN DRUG Active High Sob 2015-1 MD INGREDI 0-22 Anderso 00:00: n 00 ASPIRIN DRUG Active High Sob 2015-1 MD INGREDI 0-22 Anderso 00:00: n 00 ASPIRIN DRUG Active High Sob 2015-1 MD INGREDI 0-22 Anderso 00:00: n 00 ASPIRIN DRUG Active High Sob 2015-1 MD INGREDI 0-22 Anderso 00:00: n 00 ASPIRIN DRUG Active High Sob 2015-1 MD INGREDI 0-22 Anderso 00:00: n 00 ASPIRIN DRUG Active High Sob 2015-1 MD INGREDI 0-22 Anderso 00:00: n 00 ASPIRIN DRUG Active High Sob 2015-1 MD INGREDI 0-22 Anderso 00:00: n 00 ASPIRIN DRUG Active High Sob 2015-1 MD INGREDI 0-22 Anderso 00:00: n 00 ASPIRIN DRUG Active High Sob 2015-1 MD INGREDI 0-22 Anderso 00:00: n 00 ASPIRIN DRUG Active High Sob 2015-1 MD INGREDI 0-22 Anderso 00:00: n 00 ASPIRIN DRUG Active High Sob 2015-1 MD INGREDI 0-22 Anderso 00:00: n 00 ASPIRIN DRUG Active High Sob 2015-1 MD INGREDI 0-22 Anderso 00:00: n 00 ASPIRIN DRUG Active High Sob 2015-1 MD INGREDI 0-22 Anderso 00:00: n 00 ASPIRIN DRUG Active High Sob 2015-1 MD INGREDI 0-22 Anderso 00:00: n 00 ASPIRIN DRUG Active High Sob 2015-1 MD INGREDI 0-22 Anderso 00:00: n 00 ASPIRIN DRUG Active High Sob 2015-1 MD INGREDI 0-22 Anderso 00:00: n 00 ASPIRIN DRUG Active High Sob 2015-1 MD INGREDI 0-22 Anderso 00:00: n 00 ASPIRIN DRUG Active High Sob 2015-1 MD INGREDI 0-22 Anderso 00:00: n 00 ASPIRIN DRUG Active High Sob 2015-1 MD INGREDI 0-22 Anderso 00:00: n 00 ASPIRIN DRUG Active High Sob 2015-1 MD INGREDI 0-22 Anderso 00:00: n 00 ASPIRIN DRUG Active High Sob 2015-1 MD INGREDI 0-22 Anderso 00:00: n 00 ASPIRIN DRUG Active High Sob 2015-1 MD INGREDI 0-22 Anderso 00:00: n 00 ASPIRIN DRUG Active High Sob 2015-1 MD INGREDI 0-22 Anderso 00:00: n 00 ASPIRIN DRUG Active High Sob 2015-1 MD INGREDI 0-22 Anderso 00:00: n 00 ASPIRIN DRUG Active High Sob 2015-1 MD INGREDI 0-22 Anderso 00:00: n 00 ASPIRIN DRUG Active High Sob 2015-1 MD INGREDI 0-22 Anderso 00:00: n 00 ASPIRIN DRUG Active High Sob 2015-1 MD INGREDI 0-22 Anderso 00:00: n 00 ASPIRIN DRUG Active High Sob 2015-1 MD INGREDI 0-22 Anderso 00:00: n 00 ASPIRIN DRUG Active High Sob 2015-1 MD INGREDI 0-22 Anderso 00:00: n 00 ASPIRIN DRUG Active High Sob 2015-1 MD INGREDI 0-22 Anderso 00:00: n 00 ASPIRIN DRUG Active High Sob 2015-1 MD INGREDI 0-22 Anderso 00:00: n 00 ASPIRIN DRUG Active High Sob 2015-1 MD INGREDI 0-22 Anderso 00:00: n 00 ASPIRIN DRUG Active High Sob 2015-1 MD INGREDI 0-22 Anderso 00:00: n 00 ASPIRIN DRUG Active High Sob 2015-1 MD INGREDI 0-22 Anderso 00:00: n 00 [employer]IRIN DRUG Active High Sob 2015-1 MD INGREDI 0-22 Anderso 00:00: n 00 [employer]IRIN DRUG Active High Sob 2015-1 MD INGREDI 0-22 Anderso 00:00: n 00 [employer]IRIN DRUG Active High Sob 2015-1 MD INGREDI 0-22 Anderso 00:00: n 00 [employer]IRIN DRUG Active High Sob 2015-1 MD INGREDI 0-22 Anderso 00:00: n 00 [employer]IN DRUG Active High Sob 2015-1 MD INGREDI 0-22 Anderso 00:00: n 00 [employer]IRIN DRUG Active High Sob 2015-1 MD INGREDI 0-22 Anderso 00:00: n 00 [employer]IRIN DRUG Active High Sob 2015-1 MD INGREDI 0-22 Anderso 00:00: n 00 ASPIRIN DRUG Active High Sob 2015-1 MD INGREDI 0-22 Anderso 00:00: n 00 ASPIRIN DRUG Active High Sob 2015-1 MD INGREDI 0-22 Anderso 00:00: n 00 [employer]IRIN DRUG Active High Sob 2015-1 MD INGREDI 0-22 Anderso 00:00: n 00 [employer]IRIN DRUG Active High Sob 2015-1 MD INGREDI 0-22 Anderso 00:00: n 00 ASPIRIN DRUG Active High Sob 2015-1 MD INGREDI 0-22 Anderso 00:00: n 00 ASPIRIN DRUG Active High Sob 2015-1 MD INGREDI 0-22 Anderso 00:00: n 00 [employer]IRIN DRUG Active High Sob 2015-1 MD INGREDI 0-22 Anderso 00:00: n 00 ASPIRIN DRUG Active High Sob 2015-1 MD INGREDI 0-22 Anderso 00:00: n 00 ASPIRIN DRUG Active High Sob 2015-1 MD INGREDI 0-22 Anderso 00:00: n 00 ASPIRIN DRUG Active High Sob 2015-1 MD INGREDI 0-22 Anderso 00:00: n 00 ASPIRIN DRUG Active High Sob 2015-1 MD INGREDI 0-22 Anderso 00:00: n 00 ASPIRIN DRUG Active High Sob 2015-1 MD INGREDI 0-22 Anderso 00:00: n 00 ASPIRIN DRUG Active High Sob 2015-1 MD INGREDI 0-22 Anderso 00:00: n 00 ASPIRIN DRUG Active High Sob 2015-1 MD INGREDI 0-22 Anderso 00:00: n 00 ASPIRIN DRUG Active High Sob 2015-1 MD INGREDI 0-22 Anderso 00:00: n 00 ASPIRIN DRUG Active High Sob 2015-1 MD INGREDI 0-22 Anderso 00:00: n 00 ASPIRIN DRUG Active High Sob 2015-1 MD INGREDI 0-22 Anderso 00:00: n 00 ASPIRIN DRUG Active High Sob 2015-1 MD INGREDI 0-22 Anderso 00:00: n 00 ASPIRIN DRUG Active High Sob 2015-1 MD INGREDI 0-22 [place] 00:00: n 00 ASPIRIN DRUG Active High Sob 2015-1 MD INGREDI 0-22 [place] 00:00: n 00 ASPIRIN DRUG Active High Sob 2015-1 MD INGREDI 0-22 [place] 00:00: n 00 ASPIRIN DRUG Active High Sob 2014-1 MD INGREDI 0-22 [place] 00:00: n 00 ASPIRIN DRUG Active High Sob 2015-1 MD INGREDI 0-22 [place] 00:00: n 00 ASPIRIN DRUG Active High Sob 2014-12 MD INGREDI 0-22 [place] 00:00: n 00 ASPIRIN DRUG Active High Sob 2014-12 MD INGREDI 0-22 [place] 00:00: n 00 ASPIRIN DRUG Active High Sob 2014-12 MD INGREDI 0-22 [place] 00:00: n 00 ASPIRIN DRUG Active High Sob 2014-12 MD INGREDI 0-22 [place] 00:00: n 00 ASPIRIN DRUG Active High Sob 2014-12 MD INGREDI 0-22 [place] 00:00: n 00 ASPIRIN DRUG Active High Sob 2014-12 MD INGREDI 0-22 [place] 00:00: n 00 Family History Family Member Diagnosis Comments Start Date Stop Date Source Natural mother Breast cancer [facility] [place] [facility] [place] Natural sister Cervical cancer [facility] [place] Social History Social Habit Start Date Stop Date Quantity Comments Source Gender identity [facility] Sexual orientation Univer sity [facility] History of tobacco Cigarette Smoker University of use Alicia sparks [facility] Exposure to 2022-11-26 2022-12-[address] [facility] SARS-CoV-2 (event) 00:00:00 13:57:00 [facility] Alcohol intake 2022-07-09 2022-07-09 Ex-drinker University 00:00:00 00:00:00 (finding) Alicia sparks [facility] Cigarettes smoked 2022-05-27 2022-05-27 Univers ity of current (pack per 00:00:00 00:00:00 Alicia Garza ) - Reported Cancer Ce nter Cigarette 2022-05-27 2022-05-27 University of pack-years 00:00:00 00:00:00 Aliica sparks [facility] Tobacco use and 2022-05-27 2022-05-27 Smokeless Universit y of exposure 00:00:00 00:00:00 tobacco non-user [facility] History of Social 2021-12-04 2021-12-04 Univers ity of function 00:00:00 00:00:00 [facility] Sex [birth year] Universit y of 00:00:00 00:00:00 Alicia Pickenser [facility] Smoking Status Start Date Stop Date Source Smokes tobacco daily 2022-05-27 00:00:00 [facility] [place] [facility] [place] Medications Ordered Filled Start Stop Current Ordering Indication Dosage Frequency Signature Comments Components Source Medication Medication Date Date Medication? Clinician (SIG) Name Name GABAPENTIN 2022-0 Yes [id number] TAKE 1 Univers 300 mg 7-20 CAPSULE BY ity of capsule 00:00: MOUTH AT [place] [address] BEDTIME Medical *MAY Branch IMPAIR ALERTNESS* * GABAPENTIN 2022-0 Yes [id number] TAKE 1 Univers 300 mg 7-20 CAPSULE BY ity of capsule 00:00: MOUTH AT [place] [address] BEDTIME Medical *MAY Branch IMPAIR ALERTNESS* * losartan 50 2022-0 Yes [id number] 50mg Take 1 Univers mg tablet 7-11 tablet by ity o f 00:00: mouth in [place] the Medical morning Branch and 1 tablet in the evening. clopidogreL 2022-0 Yes [id number] 75mg Take 1 Univers 75 mg 7-11 tablet by ity of tablet 00:00: mouth in [place] the Medical morning. Branch Needs labs for further refills losartan 50 2022-0 Yes [id number] 50mg Take 1 Univers mg tablet 7-11 tablet by ity o f 00:00: mouth in [place] the Medical morning Branch and 1 tablet in the evening. clopidogreL 2022-0 Yes [id number] 75mg Take 1 Univers 75 mg 7-11 tablet by ity of tablet 00:00: mouth in [place] the Medical morning. [place] Needs labs for further refills losartan 50 2022-0 Yes [id number] 50mg Take 1 Univers mg tablet 7-11 tablet by ity o f 00:00: mouth in [place] the Medical morning Branch and 1 tablet in the evening. clopidogreL 2022-0 Yes [id number] 75mg Take 1 Univers 75 mg 7-11 tablet by ity of tablet 00:00: mouth in [place] the Medical morning. [place] Needs labs for further refills losartan 50 2022-0 Yes [id number] 50mg Take 1 Univers mg tablet 7-11 tablet by ity o f 00:00: mouth in [place] the Medical morning Branch and 1 tablet in the evening. clopidogreL 3-0 Yes [id number] 75mg Take 1 Univers 75 mg 7-11 tablet by ity of tablet 00:00: mouth in [place] the Medical morning. Branch Needs labs for further refills losartan 50 2023-0 Yes [id number] 50mg Take 1 Univers mg tablet 7-11 tablet by ity o f 00:00: mouth in [place] the Medical morning Branch and 1 tablet in the evening. clopidogreL 2023-0 Yes [id number] 75mg Take 1 Univers 75 mg 7-11 tablet by ity of tablet 00:00: mouth in [place] the Medical morning. Branch Needs labs for further refills losartan 50 2023-0 Yes [id number] 50mg Take 1 Univers mg tablet 7-11 tablet by ity o f 00:00: mouth in [place] the Medical morning Branch and 1 tablet in the evening. clopidogreL 2023-0 Yes [id number] 75mg Take 1 Univers 75 mg 7-11 tablet by ity of tablet 00:00: mouth in [place] the Medical morning. Branch Needs labs for further refills losartan 50 2023-0 Yes [id number] 50mg Take 1 Univers mg tablet 7-11 tablet by ity o f 00:00: mouth in [place] the Medical morning Branch and 1 tablet in the evening. clopidogreL 2023-0 Yes [id number] 75mg Take 1 Univers 75 mg 7-11 tablet by ity of tablet 00:00: mouth in [place] the Medical morning. Branch Needs labs for further refills losartan 50 2023-0 Yes [id number] 50mg Take 1 Univers mg tablet 7-11 tablet by ity o f 00:00: mouth in [place] the Medical morning Branch and 1 tablet in the evening. clopidogreL 2023-0 Yes [id number] 75mg Take 1 Univers 75 mg 7-11 tablet by ity of tablet 00:00: mouth in [place] the Medical morning. Branch Needs labs for further refills clopidogreL 2023-0 Yes [id number] 75mg Take 1 Univers 75 mg 5-18 tablet by ity of tablet 00:00: mouth in [place] the Medical morning. Branch Needs labs for further refills clopidogreL 2023-0 Yes [id number] 75mg Take 1 Univers 75 mg 5-18 tablet by ity of tablet 00:00: mouth in [place] the Medical morning. Branch Needs labs for further refills clopidogreL 2023-0 Yes [id number] 75mg Take 1 Univers 75 mg 5-18 tablet by ity of tablet 00:00: mouth in [place] 00 the Medical morning. Branch Needs labs for further refills clopidogreL 2023-0 Yes [id number] 75mg Take 1 Univers 75 mg 5-18 tablet by ity of tablet 00:00: mouth in [place] 00 the Medical morning. Branch Needs labs for further refills clopidogreL 2023-0 Yes [id number] 75mg Take 1 Univers 75 mg 5-18 tablet by ity of tablet 00:00: mouth in [place] 00 the Medical morning. Branch Needs labs for further refills clopidogreL 2023-0 Yes [id number] 75mg Take 1 Univers 75 mg 5-18 tablet by ity of tablet 00:00: mouth in [place] 00 the Medical morning. Branch Needs labs for further refills clopidogreL 2023-0 Yes [id number] 75mg Take 1 Univers 75 mg 5-18 tablet by ity of tablet 00:00: mouth in [place] 00 the Medical morning. Branch Needs labs for further refills clopidogreL 2023-0 Yes [id number] 75mg Take 1 Univers 75 mg 5-18 tablet by ity of tablet 00:00: mouth in [place] 00 the Medical morning. Branch Needs labs for further refills clopidogreL 2023-0 Yes [id number] 75mg Take 1 Univers 75 mg 5-18 tablet by ity of tablet 00:00: mouth in [place] 00 the Medical morning. Branch Needs labs for further refills clopidogreL 2023-0 2023- No [id number] 75mg Take 1 Univers 75 mg 5-18 07-11 tablet by ity of tablet 00:00: 00:00 mouth in [place] 00 :00 the Medical morning. Branch Needs labs for further refills clopidogreL 2023-0 2023- No [id number] 75mg Take 1 Univers 75 mg 5-18 07-11 tablet by ity of tablet 00:00: 00:00 mouth in [place] 00 :00 the Medical morning. Branch Needs labs for further refills clopidogreL 2023-0 2023- No [id number] 75mg Take 1 Univers 75 mg 5-18 07-11 tablet by ity of tablet 00:00: 00:00 mouth in [place] 00 :00 the Medical morning. Branch Needs labs for further refills budesonide- 2022-0 Yes bronchospas 2{puff} Inhale 2 Univers formoterol 3-31 m puffs by ity o f (SYMBICORT) 02:24: prevention mouth [place] 160-4.5 06 with COPD twice MD mcg/actuati daily. But An derso on inhaler using as n needed [address] [place] [address] budesonide- Yes [id number] INHALE 2 Univers formoteroL 2-14 PUFF(S) ity of 160-4.5 00:00: [place] mcg/actuati 00 2 TIMES Medic al on inhaler DAILY Branch budesonide- Yes [id number] INHALE 2 Univers formoteroL 2-14 PUFF(S) ity of 160-4.5 00:00: [place] mcg/actuati 00 2 TIMES Medic al on inhaler DAILY Branch budesonide- Yes [id number] INHALE 2 Univers formoteroL 2-14 PUFF(S) ity of 160-4.5 00:00: [place]UN[place] mcg/actuati 00 2 TIMES Medic al on inhaler DAILY Branch budesonide- Yes [id number] INHALE 2 Univers formoteroL 2-14 PUFF(S) ity of 160-4.5 00:00: [place]UN[place] mcg/actuati 00 2 TIMES Medic al on inhaler DAILY Branch budesonide- Yes [id number] INHALE 2 Univers formoteroL 2-14 PUFF(S) ity of 160-4.5 00:00: [place]UN[place] mcg/actuati 00 2 TIMES Medic al on inhaler DAILY Branch budesonide- Yes [id number] INHALE 2 Univers formoteroL 2-14 PUFF(S) ity of 160-4.5 00:00: [place]UN[place] mcg/actuati 00 2 TIMES Medic al on inhaler DAILY Branch budesonide- Yes [id number] INHALE 2 Univers formoteroL 2-14 PUFF(S) ity of 160-4.5 00:00: [place]UN[place] mcg/actuati 00 2 TIMES Medic al on inhaler DAILY Branch budesonide- Yes [id number] INHALE 2 Univers formoteroL 2-14 PUFF(S) ity of 160-4.5 00:00: [place]UN[place] mcg/actuati 00 2 TIMES Medic al on inhaler DAILY Branch budesonide- Yes [id number] INHALE 2 Univers formoteroL 2-14 PUFF(S) ity of 160-4.5 00:00: [place]UN[place] mcg/actuati 00 2 TIMES Medic al on inhaler DAILY Branch budesonide- Yes [id number] INHALE 2 Univers formoteroL 2-14 PUFF(S) ity of 160-4.5 00:00: [place]UN[place] mcg/actuati 00 2 TIMES Medic al on inhaler DAILY Branch budesonide- Yes [id number] INHALE 2 Univers formoteroL 2-14 PUFF(S) ity of 160-4.5 00:00: [place]UN[place] mcg/actuati 00 2 TIMES Medic al on inhaler DAILY Branch budesonide- Yes [id number] INHALE 2 Univers formoteroL 2-14 PUFF(S) ity of 160-4.5 00:00: INTO [place]UN[place] mcg/actuati 00 2 TIMES Medic al on inhaler DAILY Branch budesonide- Yes [id number] INHALE 2 Univers formoteroL 2-14 PUFF(S) ity of 160-4.5 00:00: [place]UN[place] mcg/actuati 00 2 TIMES Medic al on inhaler DAILY Branch budesonide- Yes [id number] INHALE 2 Univers formoteroL 2-14 PUFF(S) ity of 160-4.5 00:00: [place]UN[place] mcg/actuati 00 2 TIMES Medic al on inhaler DAILY Branch budesonide- Yes [id number] INHALE 2 Univers formoteroL 2-14 PUFF(S) ity of 160-4.5 00:00: [place]UN[place] mcg/actuati 00 2 TIMES Medic al on inhaler DAILY Branch budesonide- Yes [id number] INHALE 2 Univers formoteroL 2-14 PUFF(S) ity of 160-4.5 00:00: [place]UN[place] mcg/actuati 00 2 TIMES Medic al on inhaler DAILY Branch budesonide- Yes [id number] INHALE 2 Univers formoteroL 2-14 PUFF(S) ity of 160-4.5 00:00: [place]UN[place] mcg/actuati 00 2 TIMES Medic al on inhaler DAILY Branch budesonide- Yes [id number] INHALE 2 Univers formoteroL 2-14 PUFF(S) ity of 160-4.5 00:00: INTO [place]UN[place] mcg/actuati 00 2 TIMES Medic al on inhaler DAILY Branch budesonide- Yes [id number] INHALE 2 Univers formoteroL 2-14 PUFF(S) ity of 160-4.5 00:00: INTO [place]UN[place] mcg/actuati 00 2 TIMES Medic al on inhaler DAILY Branch budesonide- Yes [id number] INHALE 2 Univers formoteroL 2-14 PUFF(S) ity of 160-4.5 00:00: [place]UN[place] mcg/actuati 00 2 TIMES Medic al on inhaler DAILY Branch budesonide- Yes [id number] INHALE 2 Univers formoteroL 2-14 PUFF(S) ity of 160-4.5 00:00: [place] mcg/actuati 00 2 TIMES Medic al on inhaler DAILY Branch budesonide- Yes [id number] INHALE 2 Univers formoteroL 2-14 PUFF(S) ity of 160-4.5 00:00: [place]UN[place] mcg/actuati 00 2 TIMES Medic al on inhaler DAILY Branch lansoprazol Yes [id number] 30mg TAKE 1 Univers e 30 mg 1-17 CAPSULE BY ity of capsule 00:00: [facility] DAILY Medical Branch lansoprazol Yes [id number] 30mg TAKE 1 Univers e 30 mg 1-17 CAPSULE BY ity of capsule 00:00: [facility] DAILY Medical Branch lansoprazol Yes [id number] 30mg TAKE 1 Univers e 30 mg 1-17 CAPSULE BY ity of capsule 00:00: [facility] DAILY Medical Branch lansoprazol Yes [id number] 30mg TAKE 1 Univers e 30 mg 1-17 CAPSULE BY ity of capsule 00:00: [facility] DAILY Medical Branch lansoprazol Yes [id number] 30mg TAKE 1 Univers e 30 mg 1-17 CAPSULE BY ity of capsule 00:00: MOUTH [place] DAILY Medical Branch lansoprazol Yes [id number] 30mg TAKE 1 Univers e 30 mg 1-17 CAPSULE BY ity of capsule 00:00: MOUTH [place] DAILY Medical Branch lansoprazol Yes [id number] 30mg TAKE 1 Univers e 30 mg 1-17 CAPSULE BY ity of capsule 00:00: MOUTH [place] DAILY Medical Branch lansoprazol Yes [id number] 30mg TAKE 1 Univers e 30 mg 1-17 CAPSULE BY ity of capsule 00:00: MOUTH [place] DAILY Medical Branch lansoprazol Yes [id number] 30mg TAKE 1 Univers e 30 mg 1-17 CAPSULE BY ity of capsule 00:00: MOUTH [place] DAILY Medical Branch lansoprazol Yes [id number] 30mg TAKE 1 Univers e 30 mg 1-17 CAPSULE BY ity of capsule 00:00: MOUTH [place] DAILY Medical Branch lansoprazol Yes [id number] 30mg TAKE 1 Univers e 30 mg 1-17 CAPSULE BY ity of capsule 00:00: MOUTH [place] DAILY Medical Branch lansoprazol Yes [id number] 30mg TAKE 1 Univers e 30 mg 1-17 CAPSULE BY ity of capsule 00:00: MOUTH [place] DAILY Medical Branch lansoprazol Yes [id number] 30mg TAKE 1 Univers e 30 mg 1-17 CAPSULE BY ity of capsule 00:00: MOUTH [place] DAILY Medical Branch lansoprazol 2022- Yes [id number] 30mg TAKE 1 Univers e 30 mg 1-17 CAPSULE BY ity of capsule 00:00: MOUTH [place] DAILY Medical Branch lansoprazol 2022- Yes [id number] 30mg TAKE 1 Univers e 30 mg 1-17 CAPSULE BY ity of capsule 00:00: MOUTH [place] DAILY Medical Branch lansoprazol Yes [id number] 30mg TAKE 1 Univers e 30 mg 1-17 CAPSULE BY ity of capsule 00:00: MOUTH [place] DAILY Medical Branch lansoprazol Yes [id number] 30mg TAKE 1 Univers e 30 mg 1-17 CAPSULE BY ity of capsule 00:00: MOUTH DAILY Medical Branch lansoprazol Yes [id number] 30mg TAKE 1 Univers e 30 mg 1-17 CAPSULE BY ity of capsule 00:00: MOUTH DAILY Medical Branch lansoprazol Yes [id number] 30mg TAKE 1 Univers e 30 mg 1-17 CAPSULE BY ity of capsule 00:00: MOUTH DAILY Medical Branch lansoprazol Yes [id number] 30mg TAKE 1 Univers e 30 mg 1-17 CAPSULE BY ity of capsule 00:00: MOUTH DAILY Medical Branch lansoprazol Yes [id number] 30mg TAKE 1 Univers e 30 mg 1-17 CAPSULE BY ity of capsule 00:00: MOUTH [place] DAILY Medical Branch lansoprazol Yes [id number] 30mg TAKE 1 Univers e 30 mg 1-17 CAPSULE BY ity of capsule 00:00: MOUTH [place] DAILY Medical Branch lansoprazol Yes [id number] 30mg TAKE 1 Univers e 30 mg 1-17 CAPSULE BY ity of capsule 00:00: MOUTH DAILY Medical Branch DOCUSATE Yes Take by Univer s SODIUM ORAL 1-06 mouth. ity of 14:19: [address] Branch DOCUSATE Yes Take by Univer s SODIUM ORAL 1-06 mouth. ity of 14:19: [address] Branch DOCUSATE Yes Take by Univer s SODIUM ORAL 1-06 mouth. ity of 14:19: [address] Branch DOCUSATE Yes Take by Univer s SODIUM ORAL 1-06 mouth. ity of 14:19: [address] Branch DOCUSATE Yes Take by Univer s SODIUM ORAL 1-06 mouth. ity of 14:19: [address] Branch DOCUSATE Yes Take by Univer s SODIUM ORAL 1-06 mouth. ity of 14:19: [address] Branch DOCUSATE Yes Take by Unive rs SODIUM ORAL 1-06 mouth. ity of 14:19: [address] Branch DOCUSATE Yes Take by Univer s SODIUM ORAL 1-06 mouth. ity of 14:19: [address] DOCUSATE Yes Take by Univer s SODIUM ORAL 1-06 mouth. ity of 14:19: [address] DOCUSATE Yes Take by Univer s SODIUM ORAL 1-06 mouth. ity of 14:19: [address] Yes Take by Univer s SODIUM ORAL 1-06 mouth. ity of 14:19: [address] DOCUSATE Yes Take by Univer s SODIUM ORAL 1-06 mouth. ity of 14:19: [address] Yes Take by Univer s SODIUM ORAL 1-06 mouth. ity of 14:19: [address] DOCUSATE Yes Take by Univer s SODIUM ORAL 1-06 mouth. ity of 14:19: [address] Yes Take by Univer s SODIUM ORAL 1-06 mouth. ity of 14:19: [address] Yes Take by Univer s SODIUM ORAL 1-06 mouth. ity of 14:19: [address] Yes Take by Univer s SODIUM ORAL 1-06 mouth. ity of 14:19: [address] Yes Take by Univer s SODIUM ORAL 1-06 mouth. ity of 14:19: [address] Yes Take by Univer s SODIUM ORAL 1-06 mouth. ity of 14:19: [address] DOCUSATE Yes Take by Univer s SODIUM ORAL 1-06 mouth. ity of 14:19: [address] DOCUSATE Yes Take by Univer s SODIUM ORAL 1-06 mouth. ity of 14:19: [address] DOCUSATE Yes Take by Univer s SODIUM ORAL 1-06 mouth. ity of 14:: [address] DOCUSATE Yes Take by Univer s SODIUM ORAL 1-06 mouth. ity of 14:19: [address] DOCUSATE Yes Take by Univer s SODIUM ORAL 1-06 mouth. ity of 14:19: [address] Yes Take by Univer s SODIUM ORAL 1-06 mouth. ity of 14:19: [address] DOCUSATE Yes Take by Univer s SODIUM ORAL 1-06 mouth. ity of 14:19: [address] DOCUSATE Yes Take by Univer s SODIUM ORAL 1-06 mouth. ity of 14:19: [address] DOCUSATE Yes Take by Univer s SODIUM ORAL 1-06 mouth. ity of 14:19: [address] DOCUSATE Yes Take by Univer s SODIUM ORAL 1-06 mouth. ity of 14:19: [address] triamcinolo Yes Contact Apply Un hannah ne 08-19 dermatitis topically ity of (KENALOG) 00:00: due to to [place] ointment 00 other affected MD 0.1% agent, not area(s) Marv o otherwise twice n specified daily. Cancer Avoid face Center desonide Yes Rosacea, Apply Univ ers (DesOwen) 08-19 not topically ity o f 0.05% cream 00:00: otherwise to [place] 00 specified affected MD area(s) Anderso twice n daily. For Cancer face and Center neck fluocinonid Yes Seborrheic Apply Univers e (LIDEX) 08-19 dermatitis, topically ity of 0.05% 00:00: not to [place] topical 00 otherwise affected MD solution specified area(s) And erso twice n daily. Cancer Center ketoconazol Yes Seborrheic Apply Univers e (Nizoral) 08-19 dermatitis, topically ity of 2% shampoo 00:00: not to [place] 00 otherwise affected MD specified area(s) 3 [place] so (three) n times a Cancer week Center Friday, Friday and Friday. urea 40% Yes Contact Apply Unive rs cream 08-19 dermatitis topically ity of 00:00: due to to [place] 00 other affected MD agent, not area(s) Marv o otherwise twice n specified daily. Cancer Center metroNIDAZO Yes Postoperati 500mg Take 1 Univers LE (FLAGYL) 8-17 ve wound tablet it y of 500 mg 00:00: cellulitis (500 mg) [place] tablet 00 by mouth MD every 12 Anderso (twelve) n hours. Cancer Center levoFLOXaci 2021-0 Yes Postoperati 500mg Take 1 Univers n 8-17 ve wound tablet ity of (LEVAQUIN) 00:00: cellulitis (500 mg) [place] 500 mg 00 by mouth MD tablet daily. [place]o n Cancer Center doxycycline 2-0 Yes Postoperati 100mg Take 1 Univers (VIBRAMYCIN 8-17 ve wound tablet it y of ) 100 mg 00:00: cellulitis (100 mg) [place] tablet 00 by mouth MD every 12 Anderso (twelve) n hours. Cancer Center acetaminoph 2-0 Yes 1000mg Take 1,000 Univers en 500 mg 8-16 mg by ity of tablet 23:01: mouth [place] 01 every 6 Medical (six) Branch hours as needed for Pain. acetaminoph 2022-0 Yes 1000mg Take 1,000 Univers en 500 mg 8-16 mg by ity of tablet 23:01: mouth [place] 01 every 6 Medical (six) Branch hours as needed for Pain. acetaminoph 2022-0 Yes 1000mg Take 1,000 Univers en 500 mg 8-16 mg by ity of tablet 23:01: mouth [place] 01 every 6 Medical (six) Branch hours as needed for Pain. acetaminoph 2022-0 Yes 1000mg Take 1,000 Univers en 500 mg 8-16 mg by ity of tablet 23:01: mouth [place] 01 every 6 Medical (six) Branch hours as needed for Pain. acetaminoph 2022-0 Yes 1000mg Take 1,000 Univers en 500 mg 8-16 mg by ity of tablet 23:01: mouth [place] 01 every 6 Medical (six) Branch hours as needed for Pain. acetaminoph 2022-0 Yes 1000mg Take 1,000 Univers en 500 mg 8-16 mg by ity of tablet 23:01: mouth [place] 01 every 6 Medical (six) Branch hours as needed for Pain. acetaminoph 2022-0 Yes 1000mg Take 1,000 Univers en 500 mg 8-16 mg by ity of tablet 23:01: mouth [place] 01 every 6 Medical (six) Branch hours as needed for Pain. acetaminoph 2022-0 Yes 1000mg Take 1,000 Univers en 500 mg 8-16 mg by ity of tablet 23:01: mouth [place] 01 every 6 Medical (six) Branch hours as needed for Pain. acetaminoph 2022-0 Yes 1000mg Take 1,000 Univers en 500 mg 8-16 mg by ity of tablet 23:01: mouth [place] 01 every 6 Medical (six) Branch hours as needed for Pain. acetaminoph 2022-0 Yes 1000mg Take 1,000 Univers en 500 mg 8-16 mg by ity of tablet 23:01: mouth [place] 01 every 6 Medical (six) Branch hours as needed for Pain. acetaminoph 2022-0 Yes 1000mg Take 1,000 Univers en 500 mg 8-16 mg by ity of tablet 23:01: mouth [place] 01 every 6 Medical (six) Branch hours as needed for Pain. acetaminoph 2022-0 Yes 1000mg Take 1,000 Univers en 500 mg 8-16 mg by ity of tablet 23:01: mouth [place] 01 every 6 Medical (six) Branch hours as needed for Pain. acetaminoph 2022-0 Yes 1000mg Take 1,000 Univers en 500 mg 8-16 mg by ity of tablet 23:01: mouth [place] 01 every 6 Medical (six) Branch hours as needed for Pain. acetaminoph 2022-0 Yes 1000mg Take 1,000 Univers en 500 mg 8-16 mg by ity of tablet 23:01: mouth [place] 01 every 6 Medical (six) Branch hours as needed for Pain. acetaminoph 2022-0 Yes 1000mg Take 1,000 Univers en 500 mg 8-16 mg by ity of tablet 23:01: mouth [place] 01 every 6 Medical (six) Branch hours as needed for Pain. acetaminoph 2022-0 Yes 1000mg Take 1,000 Univers en 500 mg 8-16 mg by ity of tablet 23:01: mouth [place] 01 every 6 Medical (six) Branch hours as needed for Pain. acetaminoph 2022-0 Yes 1000mg Take 1,000 Univers en 500 mg 8-16 mg by ity of tablet 23:01: mouth [place] 01 every 6 Medical (six) Branch hours as needed for Pain. acetaminoph 2022-0 Yes 1000mg Take 1,000 Univers en 500 mg 8-16 mg by ity of tablet 23:01: mouth [place] 01 every 6 Medical (six) Branch hours as needed for Pain. acetaminoph 2022-0 Yes 1000mg Take 1,000 Univers en 500 mg 8-16 mg by ity of tablet 23:01: mouth [place] 01 every 6 Medical (six) Branch hours as needed for Pain. acetaminoph 2022-0 Yes 1000mg Take 1,000 Univers en 500 mg 8-16 mg by ity of tablet 23:01: mouth [place] 01 every 6 Medical (six) Branch hours as needed for Pain. acetaminoph 2022-0 Yes 1000mg Take 1,000 Univers en 500 mg 8-16 mg by ity of tablet 23:01: mouth [place] 01 every 6 Medical (six) Branch hours as needed for Pain. acetaminoph 2022-0 Yes 1000mg Take 1,000 Univers en 500 mg 8-16 mg by ity of tablet 23:01: mouth [place] 01 every 6 Medical (six) Branch hours as needed for Pain. acetaminoph 2022-0 Yes 1000mg Take 1,000 Univers en 500 mg 8-16 mg by ity of tablet 23:01: mouth [place] 01 every 6 Medical (six) Branch hours as needed for Pain. acetaminoph 2022-0 Yes 1000mg Take 1,000 Univers en 500 mg 8-16 mg by ity of tablet 23:01: mouth [place] 01 every 6 Medical (six) Branch hours as needed for Pain. acetaminoph 2022-0 Yes 1000mg Take 1,000 Univers en 500 mg 8-16 mg by ity of tablet 23:01: mouth [place] 01 every 6 Medical (six) Branch hours as needed for Pain. acetaminoph 2022-0 Yes 1000mg Take 1,000 Univers en 500 mg 8-16 mg by ity of tablet 23:01: mouth [place] 01 every 6 Medical (six) Branch hours as needed for Pain. acetaminoph 2022-0 Yes 1000mg Take 1,000 Univers en 500 mg 8-16 mg by ity of tablet 23:01: mouth [place] 01 every 6 Medical (six) Branch hours as needed for Pain. acetaminoph 2022-0 Yes 1000mg Take 1,000 Univers en 500 mg 8-16 mg by ity of tablet 23:01: mouth [place] 01 every 6 Medical (six) Branch hours as needed for Pain. amoxicillin 2022-0 2022- No 1{tbl} 1 tablet, Univers -clavulanat 8-15 08-15 Oral, ity of e 15:00: 14:04 ONCE, 1 [place] (AUGMENTIN) 00 :00 dose, On Medi angie 875-125 mg Fri Branch per tablet 07/15/22 at 1 tablet 1000, Routine
Reason for Anti-Infec tive: Documented Infection< br>Documen maria dolores Infection Site: Skin / Soft Tissue
Duration of Therapy: 10 days losartan Yes 50mg 50 mg, Univers (COZAAR) 8-15 Oral, ity of tablet 50 14:00: DAILY, [place] mg 00 First dose Medical on Mon Branch 07/15/22 at 0900, Until Discontinu ed, Routine DOCUSATE Yes Take by Univer s SODIUM ORAL 8-15 mouth. ity of 11:02: [address] acetaminoph Yes 1000mg Take 1,000 [facility] en 500 mg 8-15 mg by ity of tablet 11:02: mouth [place] 13 every 6 Medical (six) Branch hours as needed for Pain. DOCUSATE Yes Take by [facility] SODIUM ORAL 8-15 mouth. ity of 11:02: [address] acetaminoph Yes 1000mg Take 1,000 [facility] en 500 mg 8-15 mg by ity of tablet 11:02: mouth [place] 13 every 6 Medical (six) Branch hours as needed for Pain. DOCUSATE Yes Take by [facility] SODIUM ORAL 8-15 mouth. ity of 11:02: [address] sennosides- 2021- No 1{tbl} Take 1 [facility] docusate 8-15 08-15 tablet by ity o f sodium 09:03: 00:00 mouth in [place] (SENEXON-S) 24 :00 the Medical 8.6-50 mg morning Branch per tablet and 1 tablet in the evening. nicotine 14 0 Yes [id number] 1{patch Apply 1 [facility] mg/24 hr 8-15 } Patch to ity of patch 00:00: area(s) [place] 00 every 24 Medical (twenty-fo Branch ur) hours. polyethylen Yes [id number] 17g Take 1 [facility] e glycol 8-15 Packet by ity of 3350 17 00:00: mouth as [place] gram powder 00 needed for Me dical Constipati Branch on. triamcinolo 0 Yes [id number] Apply to [facility] ne 8-15 area(s) 2 ity of acetonide 00:00: (two) [place] 0.1 % 00 times Medical ointment daily. Branch Uses on scalp when it itches gabapentin 0 Yes [id number] 300mg Take 1 [facility] 300 mg 8-15 capsule by ity of capsule 00:00: mouth at [place] 00 bedtime as Medical needed for Branch Pain (scale 4-6). losartan 50 0 Yes 50mg Take 1 [facility] ers mg tablet 8-15 tablet by ity o f 00:00: mouth in [place] 00 the Medical morning. Branch nicotine 14 0 Yes [id number] 1{patch Apply 1 [facility] mg/24 hr 8-15 } Patch to ity of patch 00:00: area(s) [place] 00 every 24 Medical (twenty-fo Branch ur) hours. polyethylen 0 Yes [id number] 17g Take 1 [facility] e glycol 8-15 Packet by ity of 3350 17 00:00: mouth as [place] gram powder 00 needed for Me dical Constipati Branch on. triamcinolo 0 Yes [id number] Apply to [facility] ne 8-15 area(s) 2 ity of acetonide 00:00: (two) [place] 0.1 % 00 times Medical ointment daily. Branch Uses on scalp when it itches gabapentin 0 Yes [id number] 300mg Take 1 [facility] 300 mg 8-15 capsule by ity of capsule 00:00: mouth at [place] 00 bedtime as Medical needed for Branch Pain (scale 4-6). losartan 50 0 Yes 50mg Take 1 [facility] ers mg tablet 8-15 tablet by ity o f 00:00: mouth in [place] 00 the Medical morning. Branch nicotine 14 2021-0 Yes [id number] 1{patch Apply 1 [facility] mg/24 hr 8-15 } Patch to ity of patch 00:00: area(s) [place] 00 every 24 Medical (twenty-fo Branch ur) hours. polyethylen 2021-0 Yes [id number] 17g Take 1 [facility] e glycol 8-15 Packet by ity of 3350 17 00:00: mouth as [place] gram powder 00 needed for Me dical Constipati Branch on. triamcinolo Yes [id number] Apply to [facility] ne 8-15 area(s) 2 ity of acetonide 00:00: (two) [place] 0.1 % 00 times Medical ointment daily. Branch Uses on scalp when it itches gabapentin Yes [id number] 300mg Take 1 [facility] 300 mg 8-15 capsule by ity of capsule 00:00: mouth at [place] 00 bedtime as Medical needed for Branch Pain (scale 4-6). losartan 50 Yes 50mg Take 1 [facility] ers mg tablet 8-15 tablet by ity o f 00:00: mouth in [place] 00 the Medical morning. Branch nicotine 14 Yes [id number] 1{patch Apply 1 [facility] mg/24 hr 8-15 } Patch to ity of patch 00:00: area(s) [place] 00 every 24 Medical (twenty-fo Branch ur) hours. polyethylen Yes [id number] 17g Take 1 [facility] e glycol 8-15 Packet by ity of 3350 17 00:00: mouth as [place] gram powder 00 needed for Me dical Constipati Branch on. triamcinolo Yes [id number] Apply to [facility] ne 8-15 area(s) 2 ity of acetonide 00:00: (two) [place] 0.1 % 00 times Medical ointment daily. Branch Uses on scalp when it itches gabapentin Yes [id number] 300mg Take 1 [facility] 300 mg 8-15 capsule by ity of capsule 00:00: mouth at [place] 00 bedtime as Medical needed for Branch Pain (scale 4-6). losartan 50 Yes 50mg Take 1 [facility] ers mg tablet 8-15 tablet by ity o f 00:00: mouth in [place] 00 the Medical morning. Branch nicotine 14 Yes [id number] 1{patch Apply 1 [facility] mg/24 hr 8-15 } Patch to ity of patch 00:00: area(s) [place] 00 every 24 Medical (twenty-fo Branch ur) hours. polyethylen 0 Yes [id number] 17g Take 1 [facility] e glycol 8-15 Packet by ity of 3350 17 00:00: mouth as [place] gram powder 00 needed for Me dical Constipati Branch on. triamcinolo Yes [id number] Apply to [facility] ne 8-15 area(s) 2 ity of acetonide 00:00: (two) [place] 0.1 % 00 times Medical ointment daily. Branch Uses on scalp when it itches gabapentin 2021-0 Yes [id number] 300mg Take 1 [facility] 300 mg 8-15 capsule by ity of capsule 00:00: mouth at [place] 00 bedtime as Medical needed for Branch Pain (scale 4-6). losartan 50 2021-0 Yes 50mg Take 1 [facility] ers mg tablet 8-15 tablet by ity o f 00:00: mouth in [place] 00 the Medical morning. Branch nicotine 14 2021-0 Yes [id number] 1{patch Apply 1 [facility] mg/24 hr 8-15 } Patch to ity of patch 00:00: area(s) [place] 00 every 24 Medical (twenty-fo Branch ur) hours. polyethylen 2021-0 Yes [id number] 17g Take 1 [facility] e glycol 8-15 Packet by ity of 3350 17 00:00: mouth as [place] gram powder 00 needed for Me dical Constipati Branch on. triamcinolo 2021-0 Yes [id number] Apply to [facility] ne 8-15 area(s) 2 ity of acetonide 00:00: (two) [place] 0.1 % 00 times Medical ointment daily. Branch Uses on scalp when it itches gabapentin 2021-0 Yes [id number] 300mg Take 1 [facility] 300 mg 8-15 capsule by ity of capsule 00:00: mouth at [place] 00 bedtime as Medical needed for Branch Pain (scale 4-6). losartan 50 0 Yes 50mg Take 1 [facility] ers mg tablet 8-15 tablet by ity o f 00:00: mouth in [place] 00 the Medical morning. Branch nicotine 14 2021-0 Yes [id number] 1{patch Apply 1 [facility] mg/24 hr 8-15 } Patch to ity of patch 00:00: area(s) [place] 00 every 24 Medical (twenty-fo Branch ur) hours. polyethylen 2021-0 Yes [id number] 17g Take 1 [facility] e glycol 8-15 Packet by ity of 3350 17 00:00: mouth as [place] gram powder 00 needed for Me dical Constipati Branch on. triamcinolo 2021-0 Yes [id number] Apply to [facility] ne 8-15 area(s) 2 ity of acetonide 00:00: (two) [place] 0.1 % 00 times Medical ointment daily. Branch Uses on scalp when it itches gabapentin 2021-0 Yes [id number] 300mg Take 1 [facility] 300 mg 8-15 capsule by ity of capsule 00:00: mouth at [place] 00 bedtime as Medical needed for Branch Pain (scale 4-6). losartan 50 2021-0 Yes 50mg Take 1 [facility] ers mg tablet 8-15 tablet by ity o f 00:00: mouth in [place] 00 the Medical morning. Branch nicotine 14 2021-0 Yes [id number] 1{patch Apply 1 [facility] mg/24 hr 8-15 } Patch to ity of patch 00:00: area(s) [place] 00 every 24 Medical (twenty-fo Branch ur) hours. polyethylen 2021-0 Yes [id number] 17g Take 1 [facility] e glycol 8-15 Packet by ity of 3350 17 00:00: mouth as [place] gram powder 00 needed for Me dical Constipati Branch on. triamcinolo 2021-0 Yes [id number] Apply to [facility] ne 8-15 area(s) 2 ity of acetonide 00:00: (two) [place] 0.1 % 00 times Medical ointment daily. Branch Uses on scalp when it itches gabapentin 2021-0 Yes [id number] 300mg Take 1 [facility] 300 mg 8-15 capsule by ity of capsule 00:00: mouth at [place] 00 bedtime as Medical needed for Branch Pain (scale 4-6). losartan 50 2021-0 Yes 50mg Take 1 [facility] ers mg tablet 8-15 tablet by ity o f 00:00: mouth in [place] 00 the Medical morning. Branch nicotine 14 2021-0 Yes [id number] 1{patch Apply 1 [facility] mg/24 hr 8-15 } Patch to ity of patch 00:00: area(s) [place] 00 every 24 Medical (twenty-fo Branch ur) hours. polyethylen 2021-0 Yes [id number] 17g Take 1 [facility] e glycol 8-15 Packet by ity of 3350 17 00:00: mouth as [place] gram powder 00 needed for Me dical Constipati Branch on. triamcinolo 2021-0 Yes [id number] Apply to [facility] ne 8-15 area(s) 2 ity of acetonide 00:00: (two) [place] 0.1 % 00 times Medical ointment daily. Branch Uses on scalp when it itches gabapentin 2021-0 Yes [id number] 300mg Take 1 [facility] 300 mg 8-15 capsule by ity of capsule 00:00: mouth at [place] 00 bedtime as Medical needed for Branch Pain (scale 4-6). losartan 50 0 Yes 50mg Take 1 [facility] ers mg tablet 8-15 tablet by ity o f 00:00: mouth in [place] 00 the Medical morning. Branch nicotine 14 Yes [id number] 1{patch Apply 1 [facility] mg/24 hr 8-15 } Patch to ity of patch 00:00: area(s) [place] 00 every 24 Medical (twenty-fo Branch ur) hours. polyethylen 2021-0 Yes [id number] 17g Take 1 [facility] e glycol 8-15 Packet by ity of 3350 17 00:00: mouth as [place] gram powder 00 needed for Me dical Constipati Branch on. triamcinolo 2021-0 Yes [id number] Apply to [facility] ne 8-15 area(s) 2 ity of acetonide 00:00: (two) [place] 0.1 % 00 times Medical ointment daily. Branch Uses on scalp when it itches gabapentin 2021- Yes [id number] 300mg Take 1 [facility] 300 mg 8-15 capsule by ity of capsule 00:00: mouth at [place] 00 bedtime as Medical needed for Branch Pain (scale 4-6). losartan 50 0 Yes 50mg Take 1 [facility] mg tablet 8-15 tablet by ity o f 00:00: mouth in [place] 00 the Medical morning. Branch nicotine 14 Yes [id number] 1{patch Apply 1 [facility] mg/24 hr 8-15 } Patch to ity of patch 00:00: area(s) [place] 00 every 24 Medical (twenty-fo Branch ur) hours. polyethylen 2021-0 Yes [id number] 17g Take 1 [facility] e glycol 8-15 Packet by ity of 3350 17 00:00: mouth as [place] gram powder 00 needed for Me dical Constipati Branch on. triamcinolo 2021-0 Yes [id number] Apply to [facility] ne 8-15 area(s) 2 ity of acetonide 00:00: (two) [place] 0.1 % 00 times Medical ointment daily. Branch Uses on scalp when it itches gabapentin 2021-0 Yes [id number] 300mg Take 1 [facility] 300 mg 8-15 capsule by ity of capsule 00:00: mouth at [place] 00 bedtime as Medical needed for Branch Pain (scale 4-6). losartan 50 2021-0 Yes 50mg Take 1 [facility] ers mg tablet 8-15 tablet by ity o f 00:00: mouth in [place] 00 the Medical morning. Branch nicotine 14 2021-0 Yes [id number] 1{patch Apply 1 [facility] mg/24 hr 8-15 } Patch to ity of patch 00:00: area(s) [place] 00 every 24 Medical (twenty-fo Branch ur) hours. polyethylen 2021-0 Yes [id number] 17g Take 1 [facility] e glycol 8-15 Packet by ity of 3350 17 00:00: mouth as [place] gram powder 00 needed for Me dical Constipati Branch on. triamcinolo 2021-0 Yes [id number] Apply to [facility] ne 8-15 area(s) 2 ity of acetonide 00:00: (two) [place] 0.1 % 00 times Medical ointment daily. Branch Uses on scalp when it itches gabapentin 2021-0 Yes [id number] 300mg Take 1 [facility] 300 mg 8-15 capsule by ity of capsule 00:00: mouth at [place] 00 bedtime as Medical needed for Branch Pain (scale 4-6). losartan 50 2021-0 Yes 50mg Take 1 [facility] mg tablet 8-15 tablet by ity o f 00:00: mouth in [place] 00 the Medical morning. Branch nicotine 14 2021-0 Yes [id number] 1{patch Apply 1 [facility] mg/24 hr 8-15 } Patch to ity of patch 00:00: area(s) [place] 00 every 24 Medical (twenty-fo Branch ur) hours. polyethylen 2021-0 Yes [id number] 17g Take 1 [facility] e glycol 8-15 Packet by ity of 3350 17 00:00: mouth as [place] gram powder 00 needed for Me dical Constipati Branch on. triamcinolo 2021-0 Yes [id number] Apply to [facility] ne 8-15 area(s) 2 ity of acetonide 00:00: (two) [place] 0.1 % 00 times Medical ointment daily. Branch Uses on scalp when it itches gabapentin 2022-0 Yes [id number] 300mg Take 1 [facility] 300 mg 8-15 capsule by ity of capsule 00:00: mouth at [place] 00 bedtime as Medical needed for Branch Pain (scale 4-6). losartan 50 0 Yes 50mg Take 1 [facility] ers mg tablet 8-15 tablet by ity o f 00:00: mouth in [place] 00 the Medical morning. Branch nicotine 14 Yes [id number] 1{patch Apply 1 [facility] mg/24 hr 8-15 } Patch to ity of patch 00:00: area(s) [place] 00 every 24 Medical (twenty-fo Branch ur) hours. polyethylen 2021-0 Yes [id number] 17g Take 1 [facility] e glycol 8-15 Packet by ity of 3350 17 00:00: mouth as [place] gram powder 00 needed for Me dical Constipati Branch on. triamcinolo 0 Yes [id number] Apply to [facility] ne 8-15 area(s) 2 ity of acetonide 00:00: (two) [place] 0.1 % 00 times Medical ointment daily. Branch Uses on scalp when it itches gabapentin 0 Yes [id number] 300mg Take 1 [facility] 300 mg 8-15 capsule by ity of capsule 00:00: mouth at [place] 00 bedtime as Medical needed for Branch Pain (scale 4-6). losartan 50 0 Yes 50mg Take 1 [facility] ers mg tablet 8-15 tablet by ity o f 00:00: mouth in [place] 00 the Medical morning. Branch nicotine 14 Yes [id number] 1{patch Apply 1 [facility] mg/24 hr 8-15 } Patch to ity of patch 00:00: area(s) [place] 00 every 24 Medical (twenty-fo Branch ur) hours. polyethylen 2021-0 Yes [id number] 17g Take 1 [facility] e glycol 8-15 Packet by ity of 3350 17 00:00: mouth as [place] gram powder 00 needed for Me dical Constipati Branch on. triamcinolo 2021-0 Yes [id number] Apply to [facility] ne 8-15 area(s) 2 ity of acetonide 00:00: (two) [place] 0.1 % 00 times Medical ointment daily. Branch Uses on scalp when it itches gabapentin 2021-0 Yes [id number] 300mg Take 1 [facility] 300 mg 8-15 capsule by ity of capsule 00:00: mouth at [place] 00 bedtime as Medical needed for Branch Pain (scale 4-6). losartan 50 0 Yes 50mg Take 1 [facility] ers mg tablet 8-15 tablet by ity o f 00:00: mouth in [place] 00 the Medical morning. Branch nicotine 14 2021-0 Yes [id number] 1{patch Apply 1 [facility] mg/24 hr 8-15 } Patch to ity of patch 00:00: area(s) [place] 00 every 24 Medical (twenty-fo Branch ur) hours. polyethylen 2021-0 Yes [id number] 17g Take 1 [facility] e glycol 8-15 Packet by ity of 3350 17 00:00: mouth as [place] gram powder 00 needed for Me dical Constipati Branch on. triamcinolo 2021-0 Yes [id number] Apply to [facility] ne 8-15 area(s) 2 ity of acetonide 00:00: (two) [place] 0.1 % 00 times Medical ointment daily. Branch Uses on scalp when it itches gabapentin 2021-0 Yes [id number] 300mg Take 1 [facility] 300 mg 8-15 capsule by ity of capsule 00:00: mouth at [place] 00 bedtime as Medical needed for Branch Pain (scale 4-6). losartan 50 0 Yes 50mg Take 1 [facility] ers mg tablet 8-15 tablet by ity o f 00:00: mouth in [place] 00 the Medical morning. Branch nicotine 14 0 Yes [id number] 1{patch Apply 1 [facility] mg/24 hr 8-15 } Patch to ity of patch 00:00: area(s) [place] 00 every 24 Medical (twenty-fo Branch ur) hours. polyethylen 2021-0 Yes [id number] 17g Take 1 [facility] e glycol 8-15 Packet by ity of 3350 17 00:00: mouth as [place] gram powder 00 needed for Me dical Constipati Branch on. triamcinolo 2021-0 Yes [id number] Apply to [facility] ne 8-15 area(s) 2 ity of acetonide 00:00: (two) [place] 0.1 % 00 times Medical ointment daily. Branch Uses on scalp when it itches gabapentin 2021-0 Yes [id number] 300mg Take 1 [facility] 300 mg 8-15 capsule by ity of capsule 00:00: mouth at [place] 00 bedtime as Medical needed for Branch Pain (scale 4-6). losartan 50 0 Yes 50mg Take 1 [facility] ers mg tablet 8-15 tablet by ity o f 00:00: mouth in [place] 00 the Medical morning. Branch nicotine 14 0 Yes [id number] 1{patch Apply 1 [facility] mg/24 hr 8-15 } Patch to ity of patch 00:00: area(s) [place] 00 every 24 Medical (twenty-fo Branch ur) hours. polyethylen 2021-0 Yes [id number] 17g Take 1 [facility] e glycol 8-15 Packet by ity of 3350 17 00:00: mouth as [place] gram powder 00 needed for Me dical Constipati Branch on. triamcinolo 2021-0 Yes [id number] Apply to [facility] ne 8-15 area(s) 2 ity of acetonide 00:00: (two) [place] 0.1 % 00 times Medical ointment daily. Branch Uses on scalp when it itches gabapentin 2021-0 Yes [id number] 300mg Take 1 [facility] 300 mg 8-15 capsule by ity of capsule 00:00: mouth at [place] 00 bedtime as Medical needed for Branch Pain (scale 4-6). losartan 50 0 Yes 50mg Take 1 [facility] ers mg tablet 8-15 tablet by ity o f 00:00: mouth in [place] 00 the Medical morning. Branch nicotine 14 0 Yes [id number] 1{patch Apply 1 [facility] mg/24 hr 8-15 } Patch to ity of patch 00:00: area(s) [place] 00 every 24 Medical (twenty-fo Branch ur) hours. polyethylen 2021-0 Yes [id number] 17g Take 1 [facility] e glycol 8-15 Packet by ity of 3350 17 00:00: mouth as [place] gram powder 00 needed for Me dical Constipati Branch on. triamcinolo 2021-0 Yes [id number] Apply to [facility] ne 8-15 area(s) 2 ity of acetonide 00:00: (two) [place] 0.1 % 00 times Medical ointment daily. Branch Uses on scalp when it itches gabapentin 2021-0 Yes [id number] 300mg Take 1 [facility] 300 mg 8-15 capsule by ity of capsule 00:00: mouth at [place] 00 bedtime as Medical needed for Branch Pain (scale 4-6). losartan 50 0 Yes 50mg Take 1 [facility] ers mg tablet 8-15 tablet by ity o f 00:00: mouth in [place] 00 the Medical morning. Branch nicotine 14 Yes [id number] 1{patch Apply 1 [facility] mg/24 hr 8-15 } Patch to ity of patch 00:00: area(s) [place] 00 every 24 Medical (twenty-fo Branch ur) hours. polyethylen 2021-0 Yes [id number] 17g Take 1 [facility] e glycol 8-15 Packet by ity of 3350 17 00:00: mouth as [place] gram powder 00 needed for Me dical Constipati Branch on. triamcinolo 2021-0 Yes [id number] Apply to [facility] ne 8-15 area(s) 2 ity of acetonide 00:00: (two) [place] 0.1 % 00 times Medical ointment daily. Branch Uses on scalp when it itches gabapentin 2021-0 Yes [id number] 300mg Take 1 [facility] 300 mg 8-15 capsule by ity of capsule 00:00: mouth at [place] 00 bedtime as Medical needed for Branch Pain (scale 4-6). losartan 50 0 Yes 50mg Take 1 [facility] ers mg tablet 8-15 tablet by ity o f 00:00: mouth in [place] 00 the Medical morning. Branch nicotine 14 Yes [id number] 1{patch Apply 1 [facility] mg/24 hr 8-15 } Patch to ity of patch 00:00: area(s) [place] 00 every 24 Medical (twenty-fo Branch ur) hours. polyethylen 2021-0 Yes [id number] 17g Take 1 [facility] e glycol 8-15 Packet by ity of 3350 17 00:00: mouth as [place] gram powder 00 needed for Me dical Constipati Branch on. triamcinolo 2021-0 Yes [id number] Apply to [facility] ne 8-15 area(s) 2 ity of acetonide 00:00: (two) [place] 0.1 % 00 times Medical ointment daily. Branch Uses on scalp when it itches gabapentin 2021-0 Yes [id number] 300mg Take 1 [facility] 300 mg 8-15 capsule by ity of capsule 00:00: mouth at [place] 00 bedtime as Medical needed for Branch Pain (scale 4-6). losartan 50 2021-0 Yes 50mg Take 1 [facility] ers mg tablet 8-15 tablet by ity o f 00:00: mouth in [place] 00 the Medical morning. Branch nicotine 14 2021- Yes [id number] 1{patch Apply 1 [facility] mg/24 hr 8-15 } Patch to ity of patch 00:00: area(s) [place] 00 every 24 Medical (twenty-fo Branch ur) hours. polyethylen 2021-0 Yes [id number] 17g Take 1 [facility] e glycol 8-15 Packet by ity of 3350 17 00:00: mouth as [place] gram powder 00 needed for Me dical Constipati Branch on. triamcinolo 2021-0 Yes [id number] Apply to [facility] ne 8-15 area(s) 2 ity of acetonide 00:00: (two) [place] 0.1 % 00 times Medical ointment daily. Branch Uses on scalp when it itches gabapentin 2021-0 Yes [id number] 300mg Take 1 [facility] 300 mg 8-15 capsule by ity of capsule 00:00: mouth at [place] 00 bedtime as Medical needed for Branch Pain (scale 4-6). nicotine 14 Yes [id number] 1{patch Apply 1 [facility] mg/24 hr 8-15 } Patch to ity of patch 00:00: area(s) [place] 00 every 24 Medical (twenty-fo Branch ur) hours. polyethylen 2021-0 Yes [id number] 17g Take 1 [facility] e glycol 8-15 Packet by ity of 3350 17 00:00: mouth as [place] gram powder 00 needed for Me dical Constipati Branch on. triamcinolo 2021-0 Yes [id number] Apply to [facility] ne 8-15 area(s) 2 ity of acetonide 00:00: (two) [place] 0.1 % 00 times Medical ointment daily. Branch Uses on scalp when it itches gabapentin 2021-0 Yes [id number] 300mg Take 1 [facility] 300 mg 8-15 capsule by ity of capsule 00:00: mouth at [place] 00 bedtime as Medical needed for Branch Pain (scale 4-6). nicotine 14 2021-0 Yes [id number] 1{patch Apply 1 [facility] mg/24 hr 8-15 } Patch to ity of patch 00:00: area(s) [place] 00 every 24 Medical (twenty-fo Branch ur) hours. polyethylen 2021-0 Yes [id number] 17g Take 1 [facility] e glycol 8-15 Packet by ity of 3350 17 00:00: mouth as [place] gram powder 00 needed for Me dical Constipati Branch on. triamcinolo 2021-0 Yes [id number] Apply to [facility] ne 8-15 area(s) 2 ity of acetonide 00:00: (two) [place] 0.1 % 00 times Medical ointment daily. Branch Uses on scalp when it itches gabapentin 0 Yes [id number] 300mg Take 1 [facility] 300 mg 8-15 capsule by ity of capsule 00:00: mouth at [place] 00 bedtime as Medical needed for Branch Pain (scale 4-6). nicotine 14 Yes [id number] 1{patch Apply 1 [facility] mg/24 hr 8-15 } Patch to ity of patch 00:00: area(s) [place] 00 every 24 Medical (twenty-fo Branch ur) hours. polyethylen 2021-0 Yes [id number] 17g Take 1 [facility] e glycol 8-15 Packet by ity of 3350 17 00:00: mouth as [place] gram powder 00 needed for Me dical Constipati Branch on. triamcinolo 2021-0 Yes [id number] Apply to [facility] ne 8-15 area(s) 2 ity of acetonide 00:00: (two) [place] 0.1 % 00 times Medical ointment daily. Branch Uses on scalp when it itches nicotine 14 2021-0 Yes [id number] 1{patch Apply 1 [facility] mg/24 hr 8-15 } Patch to ity of patch 00:00: area(s) [place] 00 every 24 Medical (twenty-fo Branch ur) hours. polyethylen 2021-0 Yes [id number] 17g Take 1 [facility] e glycol 8-15 Packet by ity of 3350 17 00:00: mouth as [place] gram powder 00 needed for Me dical Constipati Branch on. triamcinolo 2021-0 Yes [id number] Apply to [facility] ne 8-15 area(s) 2 ity of acetonide 00:00: (two) [place] 0.1 % 00 times Medical ointment daily. Branch Uses on scalp when it itches nicotine 14 2021-0 Yes [id number] 1{patch Apply 1 [facility] mg/24 hr 8-15 } Patch to ity of patch 00:00: area(s) [place] 00 every 24 Medical (twenty-fo Branch ur) hours. polyethylen 2022-0 Yes [id number] 17g Take 1 [facility] e glycol 8-15 Packet by ity of 3350 17 00:00: mouth as [place] gram powder 00 needed for Me dical Constipati Branch on. triamcinolo 2022-0 Yes [id number] Apply to [facility] ne 8-15 area(s) 2 ity of acetonide 00:00: (two) [place] 0.1 % 00 times Medical ointment daily. Branch Uses on scalp when it itches nicotine 14 2021-0 Yes [id number] 1{patch Apply 1 [facility] mg/24 hr 8-15 } Patch to ity of patch 00:00: area(s) [place] 00 every 24 Medical (twenty-fo Branch ur) hours. polyethylen 2022-0 Yes [id number] 17g Take 1 [facility] e glycol 8-15 Packet by ity of 3350 17 00:00: mouth as [place] gram powder 00 needed for Me dical Constipati Branch on. triamcinolo 2022-0 Yes [id number] Apply to [facility] ne 8-15 area(s) 2 ity of acetonide 00:00: (two) [place] 0.1 % 00 times Medical ointment daily. Branch Uses on scalp when it itches nicotine 14 2021-0 Yes [id number] 1{patch Apply 1 [facility] mg/24 hr 8-15 } Patch to ity of patch 00:00: area(s) [place] 00 every 24 Medical (twenty-fo Branch ur) hours. polyethylen 2022-0 Yes [id number] 17g Take 1 [facility] e glycol 8-15 Packet by ity of 3350 17 00:00: mouth as [place] gram powder 00 needed for Me dical Constipati Branch on. triamcinolo 2022-0 Yes [id number] Apply to [facility] ne 8-15 area(s) 2 ity of acetonide 00:00: (two) [place] 0.1 % 00 times Medical ointment daily. Branch Uses on scalp when it itches nicotine 14 2022-0 Yes [id number] 1{patch Apply 1 [facility] mg/24 hr 8-15 } Patch to ity of patch 00:00: area(s) [place] 00 every 24 Medical (twenty-fo Branch ur) hours. polyethylen 2022-0 Yes [id number] 17g Take 1 [facility] e glycol 8-15 Packet by ity of 3350 17 00:00: mouth as [place] gram powder 00 needed for Me dical Constipati Branch on. triamcinolo Yes [id number] Apply to [facility] ne 8-15 area(s) 2 ity of acetonide 00:00: (two) [place] 0.1 % 00 times Medical ointment daily. Branch Uses on scalp when it itches gabapentin 2022- No [id number] 300mg Take 1 [facility] 300 mg 8-15 07-20 capsule by ity of capsule 00:00: 23:06 mouth at [place] 00 :37 bedtime as Medical needed for Branch Pain (scale 4-6). gabapentin 2022- No [id number] 300mg Take 1 [facility] 300 mg 8-15 07-20 capsule by ity of capsule 00:00: 23:06 mouth at [place] 00 :37 bedtime as Medical needed for Branch Pain (scale 4-6). gabapentin 2022- No [id number] 300mg Take 1 [facility] 300 mg 8-15 07-20 capsule by ity of capsule 00:00: 23:06 mouth at [place] 00 :37 bedtime as Medical needed for Branch Pain (scale 4-6). gabapentin 2022- No [id number] 300mg Take 1 [facility] 300 mg 8-15 07-20 capsule by ity of capsule 00:00: 23:06 mouth at [place] 00 :37 bedtime as Medical needed for Branch Pain (scale 4-6). losartan 50 2021-2022- No 50mg Take 1 [facility] vers mg tablet 8- tablet by ity of 00:00: 00:00 mouth in [place] 00 :00 the Medical morning Branch and 1 tablet in the evening. losartan 50 2021-0 3- No 50mg Take 1 [facility] vers mg tablet 8-14 06- tablet by ity of 00:00: 00:00 mouth in [place] 00 :00 the Medical morning Branch and 1 tablet in the evening. losartan 50 2021-0 3- No 50mg Take 1 Uni vers mg tablet 8- tablet by ity of 00:00: 00:00 mouth in [place] 00 :00 the Medical morning Branch and 1 tablet in the evening. amoxicillin 2021- No [id number] 1{tbl} Take 1 Univers -clavulanat 8-15 08-26 tablet by it y of e 875-125 00:00: 04:59 mouth in [place] as mg per 00 :00 the Medical tablet morning Branch and 1 tablet in the evening. Do all this for 10 days. sulfamethox 2021- No [id number] 1{tbl} Take 1 [facility] azole-trime 8-15 08-26 tablet by it y of thoprim 00:00: 04:59 mouth in [place] (BACTRIM 00 :00 the Medical DS) 800-160 morning Branc h mg per and 1 tablet tablet in the evening. Do all this for 10 days. amoxicillin 2021- No [id number] 1{tbl} Take 1 Univers -clavulanat 8-15 08-26 tablet by it y of e 875-125 00:00: 04:59 mouth in [place] as mg per 00 :00 the Medical tablet morning Branch and 1 tablet in the evening. Do all this for 10 days. sulfamethox 2021- No [id number] 1{tbl} Take 1 [facility] azole-trime 8-15 08-26 tablet by it y of thoprim 00:00: 04:59 mouth in [place] (BACTRIM 00 :00 the Medical DS) 800-160 morning Branc h mg per and 1 tablet tablet in the evening. Do all this for 10 days. HYDROcodone 2021- No [id number] 1{tbl} Take 1 U nivers -acetaminop 8-15 08-23 tablet by it y of [place] (NORCO) 00:00: 04:59 mouth [place] 10-325 mg 00 :00 every 6 Medical tablet (six) Branch hours as needed for Pain (scale 7-10) for up to 7 days. Indication s: acute pain HYDROcodone No [id number] 1{tbl} Take 1 U nivers -acetaminop 8-15 08-23 tablet by it y of hen (NORCO) 00:00: 04:59 mouth [place] 10-325 mg 00 :00 every 6 Medical tablet (six) Branch hours as needed for Pain (scale 7-10) for up to 7 days. Indication s: acute pain FENTanyl PF 2021-2021- No 100ug 100 mcg, Univers (SUBLIMAZE 07-14-14 Slow IV ity o f (PF)) 16:00: 15:52 Push, [place] injection 00 :00 ONCE, 1 Medical 100 mcg dose, On [facility] 07/14/22 at 1100, Routine polyethylen Yes 17g 17 g, Unive rs e glycol 8- Oral, ity of 3350 powder 14:00: DAILY, [place] 17 g 00 First dose Medical on [facility] 07/14/22 at 0900, Until Discontinu ed, Routine docusate Yes 100mg 100 mg, Unive rs (COLACE) 814 Oral, BID, ity o f capsule 100 14:00: First dose [place] mg 00 on [facility] 07/14/22 at Branch 0900, Until Discontinu ed, Routine vancomycin Yes 1250mg 1,250 mg, Univers 1250 mg in 07-14 IV ity of NS 250 mL 09:00: Infusion, [place] RTU IV 00 Q24H, Medical Piggyback First dose Bran ch 1,250 mg on [facility] 07/14/22 at 0400, Until Discontinu ed, Administer over 90 Minutes, 250 mL
Reas on for Anti-Infec tive: Empiric Therapy for Suspected Infection< br>Empi [place] Therapy Site: Skin / Soft tissue
Duration of therapy: 72 hours nicotine Yes 1{patch 1 Patch, Un [place] (NICODERM) 07-14 } Topical, ity o f 14 mg/24 hr 02:45: Administer [place] patch 1 00 over 24 Medical Patch Hours, Branch Q24H, First dose on [facility] 07/13/22 at 2145, Until Discontinu ed, Routine fluticasone Yes 2{spray 2 [place], Univers propionate 07-13 } Nasal, ity of 50 16:30: DAILY, [place] mcg/actuati 00 First dose Me dical on nasal on [facility] Branch spray 2 07/13/22 at [place] 1130, Until Discontinu ed, Routine budesonide- Yes 2{puff} 2 Puff, Univers formoteroL 07-13 Inhalation ity of (SYMBICORT) 16:30: , BID, [place] 160-4.5 00 First dose Medica l mcg/actuati on [facility] Branch on inhaler 07/13/22 at 2 Puff 1130, Until Discontinu ed, Routine FENTanyl PF Yes 50ug 50 mcg, Uni vers (SUBLIMAZE 07-13 Slow IV ity of (PF)) 16:13: Push, [place] injection 12 Q4HPRN, Medical 50 mcg Starting Branch on [facility] 07/13/22 at 1113, Until Discontinu ed, Routine, Pain (scale 7-10) piperacilli 2021- No 3.375g 3.375 g, Univers n-tazobacta 07-13 08-15 IV ity of m (ZOSYN) 15:45: 13:59 [place]gyback, [place] 3.375 g in 00 :40 Q8H ABX, 9 Med ical NaCl 0.9% doses, Branch (NS) 50 mL First dose MINI-BAG on [facility] 07/13/22 at 1045, Last dose on Fri07/16/22 at 0245, Administer over 4 Hours, 50 mL
Reas on for Anti-Infec tive: Empiric Therapy for Suspected Infection< br>Empiric Therapy Site: Skin / Soft tissue
Duration of therapy: 72 hours omeprazole 0 Yes 20mg 20 mg, Unive rs (PRILOSEC) 8- Oral, ity of capsule 20 14:00: DAILY, [place] mg 00 First dose Medical on [facility] Branch 07/13/22 at 0900, Until Discontinu ed clopidogreL Yes 75mg 75 mg, Univ ers (PLAVIX) 75 07-13 Oral, ity of mg tablet 14:00: DAILY, [place] 75 mg 00 First dose Medical on [facility] Branch 07/13/22 at 0900, Until Discontinu ed, Routine albuterol Yes 2.5mg 2.5 mg, Univ ers (PROVENTIL) 8 Inhalation it y of 2.5 mg /3 13:00: , QID, [place] mL (0.083 00 First dose Medi angie %) on [facility] Branch nebulizer 07/13/22 at solution 0800, 2.5 mg Until Discontinu ed, Routine FENTanyl PF 2021- No 50ug 50 mcg, Un [place] (SUBLIMAZE 07-13 Slow IV ity o f (PF)) 07:45: 06:46 Push, [place] injection 00 :00 ONCE, 1 Medical 50 mcg dose, On Branch 07/13/22 at 0245, Routine vancomycin 2021- No 15mg/kg 1,000 mg Univers (VANCOCIN) 07-13 (rounded ity of 1,000 mg in 07:45: 12:07 from [place] NaCl 0.9% 00 :33 1,081.5 mg Medi angie (NS) 250 mL = 15 mg/kg Br anch VIAL-MATE ?72.1 kg), IV IV piggyback Piggyback, Q12H ABX, 4 doses, First dose on 07/13/22 at 0245, Last dose on 07/14/22 at 1445, Administer over 60 Minutes, 250 mL
Reas on for Anti-Infec tive: Empiric Therapy for Suspected Infection< br>Empiric Therapy Site: Skin / Soft tissue
Duration of therapy: 72 hours morpHINE (4 2021- No 4mg 4 mg, Slow Univers mg/mL) 07-13 IV Push, ity of injection 4 07:09: 16:13 Q4HPRN, [place] mg 25 :25 Starting Medical on Sat Branch 07/13/22 at 0209, Until 07/13/22 at 1113, Routine, Pain (scale 7-10) HYDROcodone 2021- No 1{tbl} 1 tablet, Univers -acetaminop 07-13 Oral, ity of hen (NORCO 07:09: 07:08 Q6HPRN, [place] 5) 5-325 mg 23 :23 Starting Medi angie tablet 1 on [facility] Branch tablet 07/13/22 at 0209, Until 07/15/22 at 0208, Routine, Pain (scale 4-6) acetaminoph Yes 650mg 650 mg, [place] en 07-13 Oral, ity of (TYLENOL) 07:09: Q6HPRN, [place] tablet 650 21 Starting Medic al mg on Sat Branch 07/13/22 at 0209, Until Discontinu ed, Routine, Pain (scale 1-3) iohexol 2021- No [id number] 70mL 70 mL, [facility] [place] (OMNIPAQUE 07-13 Intravenou it y of 350 BULK-75 06:15: 06:07 s, ONCE, 1 [place] mL) 00 :00 dose, On Medical injection Sat Branch 70 mL 07/13/22 at 0115, Routine FENTanyl PF 2021- No 50ug 50 mcg, [facility] [place] (SUBLIMAZE 07-13 Slow IV ity o f (PF)) 05:45: 05:11 Push, [place] injection 00 :00 ONCE, 1 Medical 50 mcg dose, On Branch 07/13/22 at 0045, Routine NaCl 0.9% 2021- No 1000mL at 999 Uni vers (NS) bolus 07-13 mL/hr, ity of infusion 05:45: 05:59 1,000 mL, [place] 1,000 mL 00 :00 IV Medical Infusion, Branch ONCE, 1 dose, On 07/13/22 at 0045, TERRI acetaminoph No 650mg 650 mg, U nivers en 07-13 Oral, ity of (TYLENOL) 04:45: 04:59 ONCE, 1 [place] tablet 650 00 :00 dose, On Medic al mg Fri Branch 07/12/22 at 2345, TERRI piperacilli 2021- No 3.375g 3.375 g, Univers n-tazobacta 07-13 IV ity of m (ZOSYN) 04:45: 05:54 Piggyback, [place] 3.375 g in 00 :00 ONCE, 1 Medica l NaCl 0.9% dose, On Branch (NS) 50 mL Fri MINI-BAG 07/12/22 at 2345, Administer over 30 Minutes, 50 mL
R yahaira for Anti-Infec tive: Empiric Therapy for Suspected Infection< br>Empiric Therapy Site: Skin / Soft tissue
Duration of therapy: 72 hours BUDESONIDE 2021- No Inhale. Uni vers INHALE 07-13 ity of 03:45: 00:00 [place] 38 :00 Medical Branch oxyCODONE 2021-0 Yes [place] 5mg Take 1 Univ ers (Roxicodone 8-05 intraepithe tablet (5 ity of ) 5 mg 00:00: lial mg) by [place] immediate 00 neoplasia mouth MD release III (YUNIEL every 4 [place] so tablet III) (four) n hours as Cancer needed for Center moderate pain. acetaminoph Yes [place] 1000mg Take 2 Univers en (Tylenol 8-05 intraepithe tablets ity of Extra 00:00: lial (1,000 mg) [place] Strength) 00 neoplasia by mouth M D 500 mg III (YUNIEL every 6 Marv o tablet III) (six) n hours. Cancer Center senna-docus Yes [place] 1{tbl} Take 1 Univers ate 8-05 intraepithe tablet by ity of (SENOKOT-S) 00:00: lial mouth [place] 8.6 mg-50 00 neoplasia twice MD mg tablet III (YUNIEL daily. [place] rso III) n [facility] losartan 50 2021- No [id number] 100mg Take 2 Univers mg tablet 7- 10-05 tablets by ity of 00:00: 04:59 mouth [place] 00 :00 daily for Medical 90 days. Branch losartan 50 2021- No [id number] 100mg Take 2 Univers mg tablet 7- 10-05 tablets by ity of 00:00: 04:59 mouth [place] 00 :00 daily for Medical 90 days. Branch losartan 50 2021- No [id number] 100mg Take 2 Univers mg tablet 7- 08-15 tablets by ity of 00:00: 00:00 mouth [place] 00 :00 daily for Medical 90 days. Branch DOCUSATE Yes Take by Univer s SODIUM ORAL 5-23 mouth. ity of 15:47: [place] [address] Medical Branch DOCUSATE Yes Take by Univer s SODIUM ORAL 5-23 mouth. ity of 15:47: [place] [address] Medical Branch GABAPENTIN Yes [id number] TAKE 1 Univers 300 mg 4-18 CAPSULE BY ity of capsule 00:00: MOUTH AT [place] [address] BEDTIME Medical *MAY Branch IMPAIR ALERTNESS* * GABAPENTIN Yes [id number] TAKE 1 Univers 300 mg 4-18 CAPSULE BY ity of capsule 00:00: MOUTH AT [place] 00 BEDTIME Medical *MAY Branch IMPAIR ALERTNESS* * gabapentin Yes TAKE 1 Unive rs (NEURONTIN) 4-18 CAPSULE BY it y of 300 mg 00:00: MOUTH AT [place] capsule 00 BEDTIME *MITALI Escobar IMPAIR n ALERTNESS* Cancer * Center GABAPENTIN 0 2022- No [id number] TAKE 1 Univers 300 mg 4-18 08-14 CAPSULE BY ity of capsule 00:00: 00:00 MOUTH AT [place] 00 :00 BEDTIME Medical *MAY Branch IMPAIR ALERTNESS* * BUDESONIDE 0 Yes Inhale. Univ ers INHALE 3-29 ity of 10:55: [place] 56 Medical Branch BUDESONIDE 0 Yes Inhale. Univ ers INHALE 3-29 ity of 10:55: [place] 56 Medical Branch clopidogreL 2021-0 Yes [id number] 75mg Take 1 Univers 75 mg 3-29 tablet by ity of tablet 00:00: mouth [place] 00 daily. Medical Branch clopidogreL 2021-0 Yes [id number] 75mg Take 1 Univers 75 mg 3-29 tablet by ity of tablet 00:00: mouth [place] 00 daily. Medical Branch clopidogreL 2021-0 Yes [id number] 75mg Take 1 Univers 75 mg 3-29 tablet by ity of tablet 00:00: mouth [place] 00 daily. Medical Branch clopidogreL 2021-0 Yes [id number] 75mg Take 1 Univers 75 mg 3-29 tablet by ity of tablet 00:00: mouth [place] 00 daily. Medical Branch clopidogreL 2021-0 Yes [id number] 75mg Take 1 Univers 75 mg 3-29 tablet by ity of tablet 00:00: mouth [place] 00 daily. Medical Branch clopidogreL 2021-0 Yes [id number] 75mg Take 1 Univers 75 mg 3-29 tablet by ity of tablet 00:00: mouth [place] 00 daily. Medical Branch clopidogreL 2021-0 Yes [id number] 75mg Take 1 Univers 75 mg 3-29 tablet by ity of tablet 00:00: mouth [place] 00 daily. Medical Branch clopidogreL 2021-0 Yes [id number] 75mg Take 1 Univers 75 mg 3-29 tablet by ity of tablet 00:00: mouth [place] 00 daily. Medical Branch clopidogreL 2021-0 Yes [id number] 75mg Take 1 Univers 75 mg 3-29 tablet by ity of tablet 00:00: mouth [place] 00 daily. Medical Branch clopidogreL 2022-0 Yes [id number] 75mg Take 1 Univers 75 mg 3-29 tablet by ity of tablet 00:00: mouth [place] 00 daily. Medical Branch clopidogreL 0 Yes [id number] 75mg Take 1 Univers 75 mg 3-29 tablet by ity of tablet 00:00: mouth [place] 00 daily. Medical Branch clopidogreL 0 Yes [id number] 75mg Take 1 Univers 75 mg 3-29 tablet by ity of tablet 00:00: mouth [place] 00 daily. Medical Branch clopidogreL Yes [id number] 75mg Take 1 Univers 75 mg 3-29 tablet by ity of tablet 00:00: mouth [place] 00 daily. Medical Branch clopidogreL Yes [id number] 75mg Take 1 Univers 75 mg 3-29 tablet by ity of tablet 00:00: mouth [place] 00 daily. Medical Branch clopidogrel Yes 75mg Take 75 mg Univers (PLAVIX) 75 3-29 by mouth ity of mg tablet 00:00: daily. [place] 00 MD Escobar [facility] losartan Yes 100mg Take 100 Univ ers (COZAAR) 50 3-29 mg by ity of mg tablet 00:00: mouth [place] 00 daily. MD Escobar [facility] clopidogreL 2022- No [id number] 75mg Take 1 Univers 75 mg 3-29 05-18 tablet by ity of tablet 00:00: 00:00 mouth [place] 00 :00 daily. Medical Branch clopidogreL 2022- No [id number] 75mg Take 1 Univers 75 mg 3-29 05-18 tablet by ity of tablet 00:00: 00:00 mouth [place] 00 :00 daily. Medical Branch losartan 50 2021-0 2021- No [id number] 50mg Take 1 Univers mg tablet 3-29 07-06 tablet by ity of 00:00: 00:00 mouth [place] 00 :00 daily. Medical Branch LANSOPRAZOL 0 Yes [id number] 30mg TAKE 1 Univers E 30 mg 3-14 CAPSULE BY ity of capsule 00:00: MOUTH [place] 00 DAILY Medical Branch LANSOPRAZOL 2021-0 Yes [id number] 30mg TAKE 1 Univers E 30 mg 3-14 CAPSULE BY ity of capsule 00:00: MOUTH [place] 00 DAILY Medical Branch LANSOPRAZOL 2021-0 Yes [id number] 30mg TAKE 1 Univers E 30 mg 3-14 CAPSULE BY ity of capsule 00:00: MOUTH [place] 00 DAILY Medical Branch LANSOPRAZOL Yes [id number] 30mg TAKE 1 Univers E 30 mg 3-14 CAPSULE BY ity of capsule 00:00: MOUTH [place] 00 DAILY Medical Branch LANSOPRAZOL Yes [id number] 30mg TAKE 1 Univers E 30 mg 3-14 CAPSULE BY ity of capsule 00:00: MOUTH [place] 00 DAILY Medical Branch lansoprazol Yes 30mg Take 30 mg Univers e 3-14 by mouth ity of (PREVACID) 00:00: every [place] [address] 00 morning MD capsule before [place] breakfast. [facility] LANSOPRAZOL 2022- No [id number] 30mg TAKE 1 Univers E 30 mg 3-14 -17 CAPSULE BY ity o f capsule 00:00: 00:00 MOUTH [place] 00 :00 DAILY Medical Branch LANSOPRAZOL 2022- No [id number] 30mg TAKE 1 Univers E 30 mg 3-14 - CAPSULE BY ity o f capsule 00:00: 00:00 MOUTH [place] 00 :00 DAILY Medical Branch LANSOPRAZOL 2022- No [id number] 30mg TAKE 1 Univers E 30 mg 3-14 -17 CAPSULE BY ity o f capsule 00:00: 00:00 MOUTH [place] 00 :00 DAILY Medical Branch LANSOPRAZOL 2022- No [id number] 30mg TAKE 1 Univers E 30 mg 3-14 17 CAPSULE BY ity o f capsule 00:00: 00:00 MOUTH [place] 00 :00 DAILY Medical Branch fluticasone Yes Use in [facility] ers propionate 3-11 each ity of 50 00:00: nostril [place] mcg/actuati 00 daily. Medica l on nasal Branch spray fluticasone Yes Use in [facility] ers propionate 3-11 each ity of 50 00:00: nostril [place] mcg/actuati 00 daily. Medica l on nasal Branch spray fluticasone Yes 2{spray Use 2 [place] propionate 3-11 } Sprays in ity of 50 00:00: each [place] [facility]ati [facility]. fluticasone Yes 2{spray Use 2 [place] propionate 3-11 } Sprays in ity of 50 00:00: each [place] mcg/actuati 00 nostril in Me dical on nasal the Branch spray morning. fluticasone 0 Yes 2{spray Use 2 [place] propionate 3-11 } Sprays in ity of 50 00:00: each [place] mcg/actuati 00 nostril in Me dical on nasal the Branch spray morning. fluticasone 0 Yes 2{spray Use 2 [place] propionate 3-11 } Sprays in ity of 50 00:00: each [place] mcg/actuati 00 nostril in Me dical on nasal the Branch spray morning. fluticasone Yes 2{spray Use 2 [place] propionate 3-11 } Sprays in ity of 50 00:00: each [place] mcg/actuati 00 nostril in Me dical on nasal the Branch spray morning. fluticasone Yes 2{spray Use 2 [place] propionate 3-11 } Sprays in ity of 50 00:00: each [place] mcg/actuati 00 nostril in Me dical on nasal the Branch spray morning. fluticasone 0 Yes 2{spray Use 2 [place] propionate 3-11 } Sprays in ity of 50 00:00: each [place] mcg/actuati 00 nostril in Me dical on nasal the Branch spray morning. fluticasone 0 Yes 2{spray Use 2 [place] propionate 3-11 } Sprays in ity of 50 00:00: each [place] mcg/actuati 00 nostril in Me dical on nasal the Branch spray morning. fluticasone 2021-0 Yes 2{spray Use 2 [place] propionate 3-11 } Sprays in ity of 50 00:00: each [place] mcg/actuati 00 nostril in Me dical on nasal the Branch spray morning. fluticasone 2021-0 Yes 2{spray Use 2 [place] propionate 3-11 } Sprays in ity of 50 00:00: each [place] mcg/actuati 00 nostril in Me dical on nasal the Branch spray morning. fluticasone 0 Yes 2{spray Use 2 [place] propionate 3-11 } Sprays in ity of 50 00:00: each [place] mcg/actuati 00 nostril in Me dical on nasal the Branch spray morning. fluticasone 2021-0 Yes 2{spray Use 2 [place] propionate 3-11 } Sprays in ity of 50 00:00: each [place] mcg/actuati 00 nostril in Me dical on nasal the Branch spray morning. fluticasone 2021-0 Yes 2{spray Use 2 [place] propionate 3-11 } Sprays in ity of 50 00:00: each [place] mcg/actuati 00 nostril in Me dical on nasal the Branch spray morning. fluticasone 2021-0 Yes 2{spray Use 2 [place] propionate 3-11 } Sprays in ity of 50 00:00: each [place] mcg/actuati 00 nostril in Me dical on nasal the Branch spray morning. fluticasone 2021-0 Yes 2{spray Use 2 [place] propionate 3-11 } Sprays in ity of 50 00:00: each [place] mcg/actuati 00 nostril in Me dical on nasal the Branch spray morning. fluticasone 2021-0 Yes 2{spray Use 2 [place] propionate 3-11 } Sprays in ity of 50 00:00: each [place] mcg/actuati 00 nostril in Me dical on nasal the Branch spray morning. fluticasone 2021-0 Yes 2{spray Use 2 [place] propionate 3-11 } Sprays in ity of 50 00:00: each [place] mcg/actuati 00 nostril in Me dical on nasal the Branch spray morning. fluticasone 2021-0 Yes 2{spray Use 2 [place] propionate 3-11 } Sprays in ity of 50 00:00: each [place] mcg/actuati 00 nostril in Me dical on nasal the Branch spray morning. fluticasone 2021-0 Yes 2{spray Use 2 [place] propionate 3-11 } Sprays in ity of 50 00:00: each [place] mcg/actuati 00 nostril in Me dical on nasal the Branch spray morning. fluticasone 2021-0 Yes 2{spray Use 2 [place] propionate 3-11 } Sprays in ity of 50 00:00: each [place] mcg/actuati 00 nostril in Me dical on nasal the Branch spray morning. fluticasone 2021-0 Yes 2{spray Use 2 [place] propionate 3-11 } Sprays in ity of 50 00:00: each [place] mcg/actuati 00 nostril in Me dical on nasal the Branch spray morning. fluticasone 2021-0 Yes 2{spray Use 2 [place] propionate 3-11 } Sprays in ity of 50 00:00: each [place] mcg/actuati 00 nostril in Me dical on nasal the Branch spray morning. fluticasone 2021-0 Yes 2{spray Use 2 [place] propionate 3-11 } Sprays in ity of 50 00:00: each [place] mcg/actuati 00 nostril in Me dical on nasal the Branch spray morning. fluticasone 2021-0 Yes 2{spray Use 2 [place] propionate 3-11 } Sprays in ity of 50 00:00: each [place] mcg/actuati 00 nostril in Me dical on nasal the Branch spray morning. fluticasone 2021-0 Yes 2{spray Use 2 [place] propionate 3-11 } Sprays in ity of 50 00:00: each [place] mcg/actuati 00 nostril in Me dical on nasal the Branch spray morning. fluticasone 2021-0 Yes 2{spray Use 2 [place] propionate 3-11 } Sprays in ity of 50 00:00: each [place] mcg/actuati 00 nostril in Me dical on nasal the Branch spray morning. fluticasone 2021-0 Yes 2{spray Use 2 [place] propionate 3-11 } Sprays in ity of 50 00:00: each [place] mcg/actuati 00 nostril in Me dical on nasal the Branch spray morning. fluticasone 2021-0 Yes 2{spray Use 2 [place] propionate 3-11 } Sprays in ity of 50 00:00: each [place] mcg/actuati 00 nostril in Me dical on nasal the Branch spray morning. fluticasone 2021-0 Yes 2{spray Use 2 [place] propionate 3-11 } Sprays in ity of 50 00:00: each [place] mcg/actuati 00 nostril in Me dical on nasal the Branch spray morning. fluticasone 0 Yes 2{spray Use 2 [place] propionate 3-11 } Sprays in ity of 50 00:00: each [place] mcg/actuati 00 nostril in Me dical on nasal the Branch spray morning. fluticasone 0 Yes 2{spray Use 2 [place] propionate 3-11 } Sprays in ity of 50 00:00: each [place] mcg/actuati 00 nostril in Me dical on nasal the Branch spray morning. fluticasone 2021-0 Yes 2{spray Use 2 [place] propionate 3-11 } Sprays in ity of 50 00:00: each [place] mcg/actuati 00 nostril in Me dical on nasal the Branch spray morning. fluticasone 0 Yes 1{spray Inhale 1 Univers propionate 3-11 } spray into ity of (FLONASE) 00:00: each [place] 50 00 nostril 2 MD mcg/spray (two) [place] nasal spray times a n day as Cancer needed. [place] BUDESONIDE- Yes [id number] INHALE 2 Univers FORMOTEROL 2-09 PUFF(S) ity of 160-4.5 00:00: INTO LUNGS [place] mcg/actuati 00 2 TIMES Medic al on inhaler DAILY Branch BUDESONIDE- Yes [id number] INHALE 2 Univers FORMOTEROL 2-09 PUFF(S) ity of 160-4.5 00:00: INTO LUNGS [place] mcg/actuati 00 2 TIMES Medic al on inhaler DAILY Branch BUDESONIDE- Yes [id number] INHALE 2 Univers FORMOTEROL 2-09 PUFF(S) ity of 160-4.5 00:00: INTO LUNGS [place] mcg/actuati 00 2 TIMES Medic al on inhaler DAILY Branch BUDESONIDE- Yes [id number] INHALE 2 Univers FORMOTEROL 2-09 PUFF(S) ity of 160-4.5 00:00: INTO LUNGS [place] mcg/actuati 00 2 TIMES Medic al on inhaler DAILY Branch BUDESONIDE- Yes [id number] INHALE 2 Univers FORMOTEROL 2-09 PUFF(S) ity of 160-4.5 00:00: INTO LUNGS [place] mcg/actuati 00 2 TIMES Medic al on inhaler DAILY Branch BUDESONIDE- Yes [id number] INHALE 2 Univers FORMOTEROL 2-09 PUFF(S) ity of 160-4.5 00:00: INTO LUNGS [place] mcg/actuati 00 2 TIMES Medic al on inhaler DAILY Branch BUDESONIDE- Yes [id number] INHALE 2 Univers FORMOTEROL 2-09 PUFF(S) ity of 160-4.5 00:00: INTO LUNGS [place] mcg/actuati 00 2 TIMES Medic al on inhaler DAILY Branch BUDESONIDE- Yes [id number] INHALE 2 Univers FORMOTEROL 2-09 PUFF(S) ity of 160-4.5 00:00: INTO LUNGS [place] mcg/actuati 00 2 TIMES Medic al on inhaler DAILY [place] BUDESONIDE- 2022- No [id number] INHALE 2 Univers FORMOTEROL 2-09 02-14 PUFF(S) ity o f 160-4.5 00:00: 00:00 INTO LUNGS [place] mcg/actuati 00 :00 2 TIMES Medic al on inhaler DAILY Branch BUDESONIDE- 2022- No [id number] INHALE 2 Univers FORMOTEROL 2-09 02-14 PUFF(S) ity o f 160-4.5 00:00: 00:00 INTO LUNGS [place] mcg/actuati 00 :00 2 TIMES Medic al on inhaler DAILY Branch triamcinolo Yes [id number] Apply to Univers ne 1-04 area(s) 2 ity of acetonide 00:00: (two) [place] 0.1 % 00 times Medical ointment daily. Branch triamcinolo Yes [id number] Apply to Univers ne 1-04 area(s) 2 ity of acetonide 00:00: (two) [place] 0.1 % 00 times Medical ointment daily. Branch triamcinolo 2021- No [id number] Apply to Univers ne 1-04 08-14 area(s) 2 ity of acetonide 00:00: 00:00 (two) [place] 0.1 % 00 :00 times Medical ointment daily. Branch cephALEXin 0 Yes [id number] 500mg Take 1 Univers 500 mg 5-04 capsule by ity of capsule 00:00: mouth 2 [place] 00 (two) Medical times Branch daily. cephALEXin 2020-0 Yes [id number] 500mg Take 1 Univers 500 mg 5-04 capsule by ity of capsule 00:00: mouth 2 [place] 00 (two) Medical times Branch daily. cephALEXin 2020-0 2021- No [id number] 500mg Take 1 [facility] 500 mg 5-04 08-13 capsule by ity of capsule 00:00: 00:00 mouth 2 [place] 00 :00 (two) Medical times Branch daily. albuterol 2018-12 Yes [id number] 2.5mg Inhale 3 Univers 2.5 mg /3 2-27 mL every 4 ity of mL (0.083 00:00: (four) [place] %) 00 hours as Medical nebulizer needed for Bran ch solution Wheezing or Shortness of Breath. May also nebulize one extra every 6 hours. Nebulizer & 2018-12 Yes [id number] Use with Univers Compressor 2-27 nebulizer ity of For Neb 00:00: solution [place] 00 every 4 Medical hours as Branch needed for wheezing. Diagnosis: COPD J44.1 albuterol 2018-12 Yes [id number] 2.5mg Inhale 3 Univers 2.5 mg /3 2-27 mL every 4 ity of mL (0.083 00:00: (four) [place] %) 00 hours as Medical nebulizer needed for Bran ch solution Wheezing or Shortness of Breath. May also nebulize one extra every 6 hours. Nebulizer & 2018-12 Yes [id number] Use with [facility] Compressor 2-27 nebulizer ity of For Neb 00:00: solution [place] 00 every 4 Medical hours as Branch needed for wheezing. Diagnosis: COPD J44.1 albuterol 2018-12 Yes [id number] 2.5mg Inhale 3 Univers 2.5 mg /3 2-27 mL every 4 ity of mL (0.083 00:00: (four) [place] %) 00 hours as Medical nebulizer needed for Bran ch solution Wheezing or Shortness of Breath. May also nebulize one extra every 6 hours. Nebulizer & 2018-12 Yes [id number] Use with [facility] Compressor 2-27 nebulizer ity of For Neb 00:00: solution [place] 00 every 4 Medical hours as Branch needed for wheezing. Diagnosis: COPD J44.1 albuterol 2018-12 Yes [id number] 2.5mg Inhale 3 Univers 2.5 mg /3 2-27 mL every 4 ity of mL (0.083 00:00: (four) [place] %) 00 hours as Medical nebulizer needed for Bran ch solution Wheezing or Shortness of Breath. May also nebulize one extra every 6 hours. Nebulizer & 2018-12 Yes [id number] Use with [facility] 2-27 nebulizer ity of For Neb 00:00: solution [place] 00 every 4 Medical hours as Branch needed for wheezing. Diagnosis: COPD J44.1 albuterol 2018-12 Yes [id number] 2.5mg Inhale 3 [facility] 2.5 mg /3 2-27 mL every 4 ity of mL (0.083 00:00: (four) [place] %) 00 hours as Medical nebulizer needed for Bran ch solution Wheezing or Shortness of Breath. May also nebulize one extra every 6 hours. Nebulizer & 2018-12 Yes [id number] Use with [facility] 2-27 nebulizer ity of For Neb 00:00: solution [place] 00 every 4 Medical hours as Branch needed for wheezing. Diagnosis: COPD J44.1 albuterol 2018-12 Yes [id number] 2.5mg Inhale 3 [facility] 2.5 mg /3 2-27 mL every 4 ity of mL (0.083 00:00: (four) [place] %) 00 hours as Medical nebulizer needed for Bran ch solution Wheezing or Shortness of Breath. May also nebulize one extra every 6 hours. Nebulizer & 2018-12 Yes [id number] Use with [facility] 2-27 nebulizer ity of For Neb 00:00: solution [place] 00 every 4 Medical hours as Branch needed for wheezing. Diagnosis: COPD J44.1 albuterol 2018-12 Yes [id number] 2.5mg Inhale 3 [facility] 2.5 mg /3 2-27 mL every 4 ity of mL (0.083 00:00: (four) [place] %) 00 hours as Medical nebulizer needed for Bran ch solution Wheezing or Shortness of Breath. May also nebulize one extra every 6 hours. Nebulizer & 2018-12 Yes [id number] Use with [facility] 2-27 nebulizer ity of For Neb 00:00: solution [place] 00 every 4 Medical hours as Branch needed for wheezing. Diagnosis: COPD J44.1 albuterol 2019 Yes [id number] 2.5mg Inhale 3 [facility] 2.5 mg /3 2-27 mL every 4 ity of mL (0.083 00:00: (four) [place] %) 00 hours as Medical nebulizer needed for Bran ch solution Wheezing or Shortness of Breath. May also nebulize one extra every 6 hours. Nebulizer & 2018-12 Yes [id number] Use with [facility] 2-27 nebulizer ity of For Neb 00:00: solution [place] 00 every 4 Medical hours as Branch needed for wheezing. Diagnosis: COPD J44.1 albuterol 2018-12 Yes [id number] 2.5mg Inhale 3 [facility] 2.5 mg /3 2-27 mL every 4 ity of mL (0.083 00:00: (four) [place] %) 00 hours as Medical nebulizer needed for Bran ch solution Wheezing or Shortness of Breath. May also nebulize one extra every 6 hours. Nebulizer & 2018-12 Yes [id number] Use with [facility] 2-27 nebulizer ity of For Neb 00:00: solution [place] 00 every 4 Medical hours as Branch needed for wheezing. Diagnosis: COPD J44.1 albuterol 2018-12 Yes [id number] 2.5mg Inhale 3 [facility] 2.5 mg /3 2-27 mL every 4 ity of mL (0.083 00:00: (four) [place] %) 00 hours as Medical nebulizer needed for Bran ch solution Wheezing or Shortness of Breath. May also nebulize one extra every 6 hours. Nebulizer & 2018-12 Yes [id number] Use with [facility] 2-27 nebulizer ity of For Neb 00:00: solution [place] 00 every 4 Medical hours as Branch needed for wheezing. Diagnosis: COPD J44.1 albuterol 2019 Yes [id number] 2.5mg Inhale 3 [facility] 2.5 mg /3 2-27 mL every 4 ity of mL (0.083 00:00: (four) [place] %) 00 hours as Medical nebulizer needed for Bran ch solution Wheezing or Shortness of Breath. May also nebulize one extra every 6 hours. Nebulizer & 2018-12 Yes [id number] Use with [facility] 2-27 nebulizer ity of For Neb 00:00: solution [place] 00 every 4 Medical hours as Branch needed for wheezing. Diagnosis: COPD J44.1 albuterol 2018-12 Yes [id number] 2.5mg Inhale 3 [facility] 2.5 mg /3 2-27 mL every 4 ity of mL (0.083 00:00: (four) [place] %) 00 hours as Medical nebulizer needed for Bran ch solution Wheezing or Shortness of Breath. May also nebulize one extra every 6 hours. Nebulizer & 2018-12 Yes [id number] Use with [facility] 2-27 nebulizer ity of For Neb 00:00: solution [place] 00 every 4 Medical hours as Branch needed for wheezing. Diagnosis: COPD J44.1 albuterol 2018-12 Yes [id number] 2.5mg Inhale 3 [facility] 2.5 mg /3 2-27 mL every 4 ity of mL (0.083 00:00: (four) [place] %) 00 hours as Medical nebulizer needed for Bran ch solution Wheezing or Shortness of Breath. May also nebulize one extra every 6 hours. Nebulizer & 2018-12 Yes [id number] Use with [facility] 2-27 nebulizer ity of For Neb 00:00: solution [place] 00 every 4 Medical hours as Branch needed for wheezing. Diagnosis: COPD J44.1 albuterol 2018-12 Yes [id number] 2.5mg Inhale 3 [facility] 2.5 mg /3 2-27 mL every 4 ity of mL (0.083 00:00: (four) [place] %) 00 hours as Medical nebulizer needed for Bran ch solution Wheezing or Shortness of Breath. May also nebulize one extra every 6 hours. Nebulizer & 2018-12 Yes [id number] Use with [facility] 2-27 nebulizer ity of For Neb 00:00: solution [place] 00 every 4 Medical hours as Branch needed for wheezing. Diagnosis: COPD J44.1 albuterol 2018-12 Yes [id number] 2.5mg Inhale 3 [facility] 2.5 mg /3 2-27 mL every 4 ity of mL (0.083 00:00: (four) [place] %) 00 hours as Medical nebulizer needed for Bran ch solution Wheezing or Shortness of Breath. May also nebulize one extra every 6 hours. Nebulizer & 2018-12 Yes [id number] Use with [facility] 2-27 nebulizer ity of For Neb 00:00: solution [place] 00 every 4 Medical hours as Branch needed for wheezing. Diagnosis: COPD J44.1 albuterol 2018-12 Yes [id number] 2.5mg Inhale 3 [facility] 2.5 mg /3 2-27 mL every 4 ity of mL (0.083 00:00: (four) [place] %) 00 hours as Medical nebulizer needed for Bran ch solution Wheezing or Shortness of Breath. May also nebulize one extra every 6 hours. Nebulizer & 2018-12 Yes [id number] Use with [facility] 2-27 nebulizer ity of For Neb 00:00: solution [place] 00 every 4 Medical hours as Branch needed for wheezing. Diagnosis: COPD J44.1 albuterol 2018-12 Yes [id number] 2.5mg Inhale 3 [facility] 2.5 mg /3 2-27 mL every 4 ity of mL (0.083 00:00: (four) [place] %) 00 hours as Medical nebulizer needed for Bran ch solution Wheezing or Shortness of Breath. May also nebulize one extra every 6 hours. Nebulizer & 2018-12 Yes [id number] Use with [facility] 2-27 nebulizer ity of For Neb 00:00: solution [place] 00 every 4 Medical hours as Branch needed for wheezing. Diagnosis: COPD J44.1 albuterol 2018-12 Yes [id number] 2.5mg Inhale 3 [facility] 2.5 mg /3 2-27 mL every 4 ity of mL (0.083 00:00: (four) [place] %) 00 hours as Medical nebulizer needed for Bran ch solution Wheezing or Shortness of Breath. May also nebulize one extra every 6 hours. Nebulizer & 2018-12 Yes [id number] Use with [facility] 2-27 nebulizer ity of For Neb 00:00: solution [place] 00 every 4 Medical hours as Branch needed for wheezing. Diagnosis: COPD J44.1 albuterol 2018-12 Yes [id number] 2.5mg Inhale 3 [facility] 2.5 mg /3 2-27 mL every 4 ity of mL (0.083 00:00: (four) [place] %) 00 hours as Medical nebulizer needed for Bran ch solution Wheezing or Shortness of Breath. May also nebulize one extra every 6 hours. Nebulizer & 2018-12 Yes [id number] Use with [facility] 2-27 nebulizer ity of For Neb 00:00: solution [place] 00 every 4 Medical hours as Branch needed for wheezing. Diagnosis: COPD J44.1 albuterol 2018-12 Yes [id number] 2.5mg Inhale 3 [facility] 2.5 mg /3 2-27 mL every 4 ity of mL (0.083 00:00: (four) [place] %) 00 hours as Medical nebulizer needed for Bran ch solution Wheezing or Shortness of Breath. May also nebulize one extra every 6 hours. Nebulizer & 2018-12 Yes [id number] Use with [facility] 2-27 nebulizer ity of For Neb 00:00: solution [place] 00 every 4 Medical hours as Branch needed for wheezing. Diagnosis: COPD J44.1 albuterol 2018-12 Yes [id number] 2.5mg Inhale 3 [facility] 2.5 mg /3 2-27 mL every 4 ity of mL (0.083 00:00: (four) [place] %) 00 hours as Medical nebulizer needed for Bran ch solution Wheezing or Shortness of Breath. May also nebulize one extra every 6 hours. Nebulizer & 2018-12 Yes [id number] Use with [facility] 2-27 nebulizer ity of For Neb 00:00: solution [place] 00 every 4 Medical hours as Branch needed for wheezing. Diagnosis: COPD J44.1 albuterol 2018-12 Yes [id number] 2.5mg Inhale 3 [facility] 2.5 mg /3 2-27 mL every 4 ity of mL (0.083 00:00: (four) [place] %) 00 hours as Medical nebulizer needed for Bran ch solution Wheezing or Shortness of Breath. May also nebulize one extra every 6 hours. Nebulizer & 2018-12 Yes [id number] Use with [facility] 2-27 nebulizer ity of For Neb 00:00: solution [place] 00 every 4 Medical hours as Branch needed for wheezing. Diagnosis: COPD J44.1 albuterol 2018-12 Yes [id number] 2.5mg Inhale 3 [facility] 2.5 mg /3 2-27 mL every 4 ity of mL (0.083 00:00: (four) [place] %) 00 hours as Medical nebulizer needed for Bran ch solution Wheezing or Shortness of Breath. May also nebulize one extra every 6 hours. Nebulizer & 2018-12 Yes [id number] Use with [facility] 2-27 nebulizer ity of For Neb 00:00: solution [place] 00 every 4 Medical hours as Branch needed for wheezing. Diagnosis: COPD J44.1 albuterol 2018-12 Yes [id number] 2.5mg Inhale 3 [facility] 2.5 mg /3 2-27 mL every 4 ity of mL (0.083 00:00: (four) [place] %) 00 hours as Medical nebulizer needed for Bran ch solution Wheezing or Shortness of Breath. May also nebulize one extra every 6 hours. Nebulizer & 2018-12 Yes [id number] Use with [facility] 2-27 nebulizer ity of For Neb 00:00: solution [place] 00 every 4 Medical hours as Branch needed for wheezing. Diagnosis: COPD J44.1 albuterol 2018-12 Yes [id number] 2.5mg Inhale 3 [facility] 2.5 mg /3 2-27 mL every 4 ity of mL (0.083 00:00: (four) [place] %) 00 hours as Medical nebulizer needed for Bran ch solution Wheezing or Shortness of Breath. May also nebulize one extra every 6 hours. Nebulizer & 2018-12 Yes [id number] Use with [facility] 2-27 nebulizer ity of For Neb 00:00: solution [place] 00 every 4 Medical hours as Branch needed for wheezing. Diagnosis: COPD J44.1 albuterol 2018-12 Yes [id number] 2.5mg Inhale 3 [facility] 2.5 mg /3 2-27 mL every 4 ity of mL (0.083 00:00: (four) [place] %) 00 hours as Medical nebulizer needed for Bran ch solution Wheezing or Shortness of Breath. May also nebulize one extra every 6 hours. Nebulizer & 2018-12 Yes [id number] Use with [facility] 2-27 nebulizer ity of For Neb 00:00: solution [place] 00 every 4 Medical hours as Branch needed for wheezing. Diagnosis: COPD J44.1 albuterol 2018-12 Yes [id number] 2.5mg Inhale 3 [facility] 2.5 mg /3 2-27 mL every 4 ity of mL (0.083 00:00: (four) [place] %) 00 hours as Medical nebulizer needed for Bran ch solution Wheezing or Shortness of Breath. May also nebulize one extra every 6 hours. Nebulizer & 2018-12 Yes [id number] Use with [facility] 2-27 nebulizer ity of For Neb 00:00: solution [place] 00 every 4 Medical hours as Branch needed for wheezing. Diagnosis: COPD J44.1 albuterol 2018-12 Yes [id number] 2.5mg Inhale 3 [facility] 2.5 mg /3 2-27 mL every 4 ity of mL (0.083 00:00: (four) [place] %) 00 hours as Medical nebulizer needed for Bran ch solution Wheezing or Shortness of Breath. May also nebulize one extra every 6 hours. Nebulizer & 2018-12 Yes [id number] Use with [facility] 2-27 nebulizer ity of For Neb 00:00: solution [place] 00 every 4 Medical hours as Branch needed for wheezing. Diagnosis: COPD J44.1 albuterol 2018-12 Yes [id number] 2.5mg Inhale 3 [facility] 2.5 mg /3 2-27 mL every 4 ity of mL (0.083 00:00: (four) [place] %) 00 hours as Medical nebulizer needed for Bran ch solution Wheezing or Shortness of Breath. May also nebulize one extra every 6 hours. Nebulizer & 2018-12 Yes [id number] Use with [facility] 2-27 nebulizer ity of For Neb 00:00: solution [place] 00 every 4 Medical hours as Branch needed for wheezing. Diagnosis: COPD J44.1 albuterol 2018-12 Yes [id number] 2.5mg Inhale 3 [facility] 2.5 mg /3 2-27 mL every 4 ity of mL (0.083 00:00: (four) [place] %) 00 hours as Medical nebulizer needed for Bran ch solution Wheezing or Shortness of Breath. May also nebulize one extra every 6 hours. Nebulizer & 2018-12 Yes [id number] Use with [facility] 2-27 nebulizer ity of For Neb 00:00: solution [place] 00 every 4 Medical hours as Branch needed for wheezing. Diagnosis: COPD J44.1 albuterol 2018-12 Yes [id number] 2.5mg Inhale 3 [facility] 2.5 mg /3 2-27 mL every 4 ity of mL (0.083 00:00: (four) [place] %) 00 hours as Medical nebulizer needed for Bran ch solution Wheezing or Shortness of Breath. May also nebulize one extra every 6 hours. Nebulizer & 2018-12 Yes [id number] Use with [facility] 2-27 nebulizer ity of For Neb 00:00: solution [place] 00 every 4 Medical hours as Branch needed for wheezing. Diagnosis: COPD J44.1 albuterol 2018-12 Yes [id number] 2.5mg Inhale 3 [facility] 2.5 mg /3 2-27 mL every 4 ity of mL (0.083 00:00: (four) [place] %) 00 hours as Medical nebulizer needed for Bran ch solution Wheezing or Shortness of Breath. May also nebulize one extra every 6 hours. Nebulizer & 2018-12 Yes [id number] Use with [facility] 2-27 nebulizer ity of For Neb 00:00: solution [place] 00 every 4 Medical hours as Branch needed for wheezing. Diagnosis: COPD J44.1 albuterol 2018-12 Yes [id number] 2.5mg Inhale 3 [facility] 2.5 mg /3 2-27 mL every 4 ity of mL (0.083 00:00: (four) [place] %) 00 hours as Medical nebulizer needed for Bran ch solution Wheezing or Shortness of Breath. May also nebulize one extra every 6 hours. Nebulizer & 2018-12 Yes [id number] Use with [facility] 2-27 nebulizer ity of For Neb 00:00: solution [place] 00 every 4 Medical hours as Branch needed for wheezing. Diagnosis: COPD J44.1 albuterol 2018-12 Yes [id number] 2.5mg Inhale 3 [facility] 2.5 mg /3 2-27 mL every 4 ity of mL (0.083 00:00: (four) [place] %) 00 hours as Medical nebulizer needed for Bran ch solution Wheezing or Shortness of Breath. May also nebulize one extra every 6 hours. Nebulizer & 2018-12 Yes [id number] Use with [facility] 2-27 nebulizer ity of For Neb 00:00: solution [place] 00 every 4 Medical hours as Branch needed for wheezing. Diagnosis: COPD J44.1 albuterol 2019-1 Yes 2.5mg Inhale 2.5 U nivers (PROVENTIL, 2-27 mg by ity of VENTOLIN) 00:00: mouth. [place] 2.5 mg/3 mL 00 MD (0.083%) [facility] nebulizer [facility] Immunizations Ordered Filled Date Status Comments Source Immunization Name Immunization Name SARS-COV-2 COVID-19 2021-12-27 Completed Unive rsity of PFIZER VACCINE 00:00:00 [facility] SARS-COV-2 COVID-19 2021-12-27 Completed Unive rsity of PFIZER VACCINE 00:00:00 [facility] SARS-COV-2 COVID-19 2021-12-27 Completed Unive rsity of PFIZER VACCINE 00:00:00 [facility] SARS-COV-2 COVID-19 2021-12-27 Completed Unive rsity of PFIZER VACCINE 00:00:00 [facility] SARS-COV-2 COVID-19 2021-12-27 Completed Unive rsity of PFIZER VACCINE 00:00:00 [facility] SARS-COV-2 COVID-19 2021-12-27 Completed Unive rsity of PFIZER VACCINE 00:00:00 [facility] SARS-COV-2 COVID-19 2021-12-27 Completed Unive rsity of PFIZER VACCINE 00:00:00 [facility] SARS-COV-2 COVID-19 2021-12-27 Completed Unive rsity of PFIZER VACCINE 00:00:00 [facility] SARS-COV-2 COVID-19 2021-12-27 Completed Unive rsity of PFIZER VACCINE 00:00:00 [facility] SARS-COV-2 COVID-19 2021-12-27 Completed Unive rsity of PFIZER VACCINE 00:00:00 [facility] SARS-COV-2 COVID-19 2021-12-27 Completed Unive rsity of PFIZER VACCINE 00:00:00 [facility] SARS-COV-2 COVID-19 2021-12-27 Completed Unive rsity of PFIZER VACCINE 00:00:00 [facility] SARS-COV-2 COVID-19 2021-12-27 Completed Unive rsity of PFIZER VACCINE 00:00:00 [facility] SARS-COV-2 COVID-19 2021-12-27 Completed Unive rsity of PFIZER VACCINE 00:00:00 [facility] SARS-COV-2 COVID-19 2021-12-27 Completed Unive rsity of PFIZER VACCINE 00:00:00 [facility] SARS-COV-2 COVID-19 2021-12-27 Completed Unive rsity of PFIZER VACCINE 00:00:00 [facility] SARS-COV-2 COVID-19 2021-12-27 Completed Unive rsity of PFIZER VACCINE 00:00:00 [facility] SARS-COV-2 COVID-19 2021-12-27 Completed Unive rsity of PFIZER VACCINE 00:00:00 [facility] SARS-COV-2 COVID-19 2021-12-27 Completed Unive rsity of PFIZER VACCINE 00:00:00 [facility] SARS-COV-2 COVID-19 2021-12-27 Completed Unive rsity of PFIZER VACCINE 00:00:00 [facility] SARS-COV-2 COVID-19 2021-12-27 Completed Unive rsity of PFIZER VACCINE 00:00:00 [facility] SARS-COV-2 COVID-19 2021-12-27 Completed Unive rsity of PFIZER VACCINE 00:00:00 [facility] SARS-COV-2 COVID-19 2021-12-27 Completed Unive rsity of PFIZER VACCINE 00:00:00 [facility] SARS-COV-2 COVID-19 2021-12-27 Completed Unive rsity of PFIZER VACCINE 00:00:00 [facility] SARS-COV-2 COVID-19 2021-12-27 Completed Unive rsity of PFIZER VACCINE 00:00:00 [facility] SARS-COV-2 COVID-19 2021-12-27 Completed Unive rsity of PFIZER VACCINE 00:00:00 [facility] SARS-COV-2 COVID-19 2021-12-27 Completed Unive rsity of PFIZER VACCINE 00:00:00 [facility] SARS-COV-2 COVID-19 2021-12-27 Completed Unive rsity of PFIZER VACCINE 00:00:00 [facility] SARS-COV-2 COVID-19 2021-12-27 Completed Unive rsity of PFIZER VACCINE 00:00:00 [facility] SARS-COV-2 COVID-19 2021-12-27 Completed Unive rsity of PFIZER VACCINE 00:00:00 [facility] SARS-COV-2 COVID-19 2021-12-27 Completed Unive rsity of PFIZER VACCINE 00:00:00 [facility] Pneumococcal 2021-12-04 Completed University o f Polysaccharide, 00:00:00 [place] [facility] PPSV23 (PNEUMOVAX) Branch Pneumococcal 2021-12-04 Completed University o f Polysaccharide, 00:00:00 [place] [facility] PPSV23 (PNEUMOVAX) Branch Pneumococcal 2021-12-04 Completed University o f Polysaccharide, 00:00:00 [place] [facility] PPSV23 (PNEUMOVAX) Branch Pneumococcal 2021-12-04 Completed University o f Polysaccharide, 00:00:00 [place] [facility] PPSV23 (PNEUMOVAX) Branch Pneumococcal 2021-12-04 Completed University o f Polysaccharide, 00:00:00 [place] [facility] PPSV23 (PNEUMOVAX) Branch Pneumococcal 2021-12-04 Completed University o f Polysaccharide, 00:00:00 [place] [facility] PPSV23 (PNEUMOVAX) Branch Pneumococcal 2021-12-04 Completed University o f Polysaccharide, 00:00:00 [place] [facility] PPSV23 (PNEUMOVAX) Branch Pneumococcal 2021-12-04 Completed University o f Polysaccharide, 00:00:00 [place] [facility] PPSV23 (PNEUMOVAX) Branch Pneumococcal 2021-12-04 Completed University o f Polysaccharide, 00:00:00 [place] [facility] PPSV23 (PNEUMOVAX) Branch Pneumococcal 2021-12-04 Completed University o f Polysaccharide, 00:00:00 [place] [facility] PPSV23 (PNEUMOVAX) Branch Pneumococcal 2021-12-04 Completed University o f Polysaccharide, 00:00:00 [place] [facility] PPSV23 (PNEUMOVAX) Branch Pneumococcal 2021-12-04 Completed University o f Polysaccharide, 00:00:00 [place] [facility] PPSV23 (PNEUMOVAX) Branch Pneumococcal 2021-12-04 Completed University o f Polysaccharide, 00:00:00 [place] [facility] PPSV23 (PNEUMOVAX) Branch Pneumococcal 2021-12-04 Completed University o f Polysaccharide, 00:00:00 [place] [facility] PPSV23 (PNEUMOVAX) Branch Pneumococcal 2021-12-04 Completed University o f Polysaccharide, 00:00:00 [place] [facility] PPSV23 (PNEUMOVAX) Branch Pneumococcal 2021-12-04 Completed University o f Polysaccharide, 00:00:00 [place] [facility] PPSV23 (PNEUMOVAX) Branch Pneumococcal 2021-12-04 Completed University o f Polysaccharide, 00:00:00 [place] [facility] PPSV23 (PNEUMOVAX) Branch Pneumococcal 2021-12-04 Completed University o f Polysaccharide, 00:00:00 [place] [facility] PPSV23 (PNEUMOVAX) Branch Pneumococcal 2021-12-04 Completed University o f Polysaccharide, 00:00:00 [place] [facility] PPSV23 (PNEUMOVAX) Branch Pneumococcal 2021-12-04 Completed University o f Polysaccharide, 00:00:00 [place] [facility] PPSV23 (PNEUMOVAX) Branch Pneumococcal 2021-12-04 Completed University o f Polysaccharide, 00:00:00 [place] [facility] PPSV23 (PNEUMOVAX) Branch Pneumococcal 2021-12-04 Completed University o f Polysaccharide, 00:00:00 [place] [facility] PPSV23 (PNEUMOVAX) Branch Pneumococcal 2021-12-04 Completed University o f Polysaccharide, 00:00:00 [place] [facility] PPSV23 (PNEUMOVAX) Branch Pneumococcal 2021-12-04 Completed University o f Polysaccharide, 00:00:00 [place] [facility] PPSV23 (PNEUMOVAX) Branch Pneumococcal 2021-12-04 Completed University o f Polysaccharide, 00:00:00 [place] [facility] PPSV23 (PNEUMOVAX) Branch Pneumococcal 2021-12-04 Completed University o f Polysaccharide, 00:00:00 [place] [facility] PPSV23 (PNEUMOVAX) Branch Pneumococcal 2021-12-04 Completed University o f Polysaccharide, 00:00:00 [place] [facility] PPSV23 (PNEUMOVAX) Branch Pneumococcal 2021-12-04 Completed University o f Polysaccharide, 00:00:00 [place] [facility] PPSV23 (PNEUMOVAX) Branch Pneumococcal 2021-12-04 Completed University o f Polysaccharide, 00:00:00 [place] [facility] PPSV23 (PNEUMOVAX) Branch Pneumococcal 2021-12-04 Completed University o f Polysaccharide, 00:00:00 [place] [facility] PPSV23 (PNEUMOVAX) Branch Pneumococcal 2021-12-04 Completed University o f Polysaccharide, 00:00:00 [place] [facility] PPSV23 (PNEUMOVAX) Branch SARS-COV-2 COVID-19 2021-06-30 Completed Unive rsity of PFIZER VACCINE 00:00:00 [facility] SARS-COV-2 COVID-19 2021-06-30 Completed Unive rsity of PFIZER VACCINE 00:00:00 [facility] SARS-COV-2 COVID-19 2021-06-30 Completed Unive rsity of PFIZER VACCINE 00:00:00 [facility] SARS-COV-2 COVID-19 2021-06-30 Completed Unive rsity of PFIZER VACCINE 00:00:00 [facility] SARS-COV-2 COVID-19 2021-06-30 Completed Unive rsity of PFIZER VACCINE 00:00:00 [facility] SARS-COV-2 COVID-19 2021-06-30 Completed Unive rsity of PFIZER VACCINE 00:00:00 [facility] SARS-COV-2 COVID-19 2021-06-30 Completed Unive rsity of PFIZER VACCINE 00:00:00 [facility] SARS-COV-2 COVID-19 2021-06-30 Completed Unive rsity of PFIZER VACCINE 00:00:00 [facility] SARS-COV-2 COVID-19 2021-06-30 Completed Unive rsity of PFIZER VACCINE 00:00:00 [facility] SARS-COV-2 COVID-19 2021-06-30 Completed Unive rsity of PFIZER VACCINE 00:00:00 [facility] SARS-COV-2 COVID-19 2021-06-30 Completed Unive rsity of PFIZER VACCINE 00:00:00 [facility] SARS-COV-2 COVID-19 2021-06-30 Completed Unive rsity of PFIZER VACCINE 00:00:00 [facility] SARS-COV-2 COVID-19 2021-06-30 Completed Unive rsity of PFIZER VACCINE 00:00:00 [facility] SARS-COV-2 COVID-19 2021-06-30 Completed Unive rsity of PFIZER VACCINE 00:00:00 [facility] SARS-COV-2 COVID-19 2021-06-30 Completed Unive rsity of PFIZER VACCINE 00:00:00 [facility] SARS-COV-2 COVID-19 2021-06-30 Completed Unive rsity of PFIZER VACCINE 00:00:00 [facility] SARS-COV-2 COVID-19 2021-06-30 Completed Unive rsity of PFIZER VACCINE 00:00:00 [facility] SARS-COV-2 COVID-19 2021-06-30 Completed Unive rsity of PFIZER VACCINE 00:00:00 [facility] SARS-COV-2 COVID-19 2021-06-30 Completed Unive rsity of PFIZER VACCINE 00:00:00 [facility] SARS-COV-2 COVID-19 2021-06-30 Completed Unive rsity of PFIZER VACCINE 00:00:00 [facility] SARS-COV-2 COVID-19 2021-06-30 Completed Unive rsity of PFIZER VACCINE 00:00:00 [facility] SARS-COV-2 COVID-19 2021-06-30 Completed Unive rsity of PFIZER VACCINE 00:00:00 [facility] SARS-COV-2 COVID-19 2021-06-30 Completed Unive rsity of PFIZER VACCINE 00:00:00 [facility] SARS-COV-2 COVID-19 2021-06-30 Completed Unive rsity of PFIZER VACCINE 00:00:00 [facility] SARS-COV-2 COVID-19 2021-06-30 Completed Unive rsity of PFIZER VACCINE 00:00:00 [place] [facility] SARS-COV-2 COVID-19 2021-06-30 Completed Unive rsity of PFIZER VACCINE 00:00:00 [facility] SARS-COV-2 COVID-19 2021-06-30 Completed Unive rsity of PFIZER VACCINE 00:00:00 [facility] SARS-COV-2 COVID-19 2021-06-30 Completed Unive rsity of PFIZER VACCINE 00:00:00 [facility] SARS-COV-2 COVID-19 2021-06-30 Completed Unive rsity of PFIZER VACCINE 00:00:00 [facility] SARS-COV-2 COVID-19 2021-06-30 Completed Unive rsity of PFIZER VACCINE 00:00:00 [facility] SARS-COV-2 COVID-19 2021-06-30 Completed Unive rsity of PFIZER VACCINE 00:00:00 [facility] SARS-COV-2 COVID-19 2021-06-09 Completed Unive rsity of PFIZER VACCINE 00:00:00 [facility] SARS-COV-2 COVID-19 2021-06-09 Completed Unive rsity of PFIZER VACCINE 00:00:00 [facility] SARS-COV-2 COVID-19 2021-06-09 Completed Unive rsity of PFIZER VACCINE 00:00:00 [facility] SARS-COV-2 COVID-19 2021-06-09 Completed Unive rsity of PFIZER VACCINE 00:00:00 [facility] SARS-COV-2 COVID-19 2021-06-09 Completed Unive rsity of PFIZER VACCINE 00:00:00 [facility] SARS-COV-2 COVID-19 2021-06-09 Completed Unive rsity of PFIZER VACCINE 00:00:00 [facility] SARS-COV-2 COVID-19 2021-06-09 Completed Unive rsity of PFIZER VACCINE 00:00:00 [facility] SARS-COV-2 COVID-19 2021-06-09 Completed Unive rsity of PFIZER VACCINE 00:00:00 [facility] SARS-COV-2 COVID-19 2021-06-09 Completed Unive rsity of PFIZER VACCINE 00:00:00 [facility] SARS-COV-2 COVID-19 2021-06-09 Completed Unive rsity of PFIZER VACCINE 00:00:00 [facility] SARS-COV-2 COVID-19 2021-06-09 Completed Unive rsity of PFIZER VACCINE 00:00:00 [facility] SARS-COV-2 COVID-19 2021-06-09 Completed Unive rsity of PFIZER VACCINE 00:00:00 [facility] SARS-COV-2 COVID-19 2021-06-09 Completed Unive rsity of PFIZER VACCINE 00:00:00 [facility] SARS-COV-2 COVID-19 2021-06-09 Completed Unive rsity of PFIZER VACCINE 00:00:00 [facility] SARS-COV-2 COVID-19 2021-06-09 Completed Unive rsity of PFIZER VACCINE 00:00:00 [facility] SARS-COV-2 COVID-19 2021-06-09 Completed Unive rsity of PFIZER VACCINE 00:00:00 [facility] SARS-COV-2 COVID-19 2021-06-09 Completed Unive rsity of PFIZER VACCINE 00:00:00 [facility] SARS-COV-2 COVID-19 2021-06-09 Completed Unive rsity of PFIZER VACCINE 00:00:00 [facility] SARS-COV-2 COVID-19 2021-06-09 Completed Unive rsity of PFIZER VACCINE 00:00:00 [facility] SARS-COV-2 COVID-19 2021-06-09 Completed Unive rsity of PFIZER VACCINE 00:00:00 [facility] SARS-COV-2 COVID-19 2021-06-09 Completed Unive rsity of PFIZER VACCINE 00:00:00 [facility] SARS-COV-2 COVID-19 2021-06-09 Completed Unive rsity of PFIZER VACCINE 00:00:00 [facility] SARS-COV-2 COVID-19 2021-06-09 Completed Unive rsity of PFIZER VACCINE 00:00:00 [facility] SARS-COV-2 COVID-19 2021-06-09 Completed Unive rsity of PFIZER VACCINE 00:00:00 [facility] SARS-COV-2 COVID-19 2021-06-09 Completed Unive rsity of PFIZER VACCINE 00:00:00 [facility] SARS-COV-2 COVID-19 2021-06-09 Completed Unive rsity of PFIZER VACCINE 00:00:00 [facility] SARS-COV-2 COVID-19 2021-06-09 Completed Unive rsity of PFIZER VACCINE 00:00:00 [facility] SARS-COV-2 COVID-19 2021-06-09 Completed Unive rsity of PFIZER VACCINE 00:00:00 [facility] SARS-COV-2 COVID-19 2021-06-09 Completed Unive rsity of PFIZER VACCINE 00:00:00 [facility] SARS-COV-2 COVID-19 2021-06-09 Completed Unive rsity of PFIZER VACCINE 00:00:00 [facility] SARS-COV-2 COVID-19 2021-06-09 Completed Unive rsity of PFIZER VACCINE 00:00:00 [facility] Td 2017-12-15 Completed University of 00:00:00 [facility] Td 2017-12-15 Completed University of 00:00:00 [facility] Td 2017-12-15 Completed University of 00:00:00 [facility] Td 2017-12-15 Completed University of 00:00:00 [facility] Td 2017-12-15 Completed University of 00:00:00 [facility] TD, NOS 2017-12-15 Completed University of 00:00:00 [facility] TD, NOS 2017-12-15 Completed University of 00:00:00 [facility] TD, NOS 2017-12-15 Completed University of 00:00:00 [facility] TD, NOS 2017-12-15 Completed University of 00:00:00 [facility] TD, NOS 2017-12-15 Completed University of 00:00:00 [facility] TD, NOS 2017-12-15 Completed University of 00:00:00 [facility] TD, NOS 2017-12-15 Completed University of 00:00:00 [facility] TD, NOS 2017-12-15 Completed University of 00:00:00 [facility] TD, NOS 2017-12-15 Completed University of 00:00:00 [facility] TD, NOS 2017-12-15 Completed University of 00:00:00 [facility] TD, NOS 2017-12-15 Completed University of 00:00:00 [facility] TD, NOS 2017-12-15 Completed University of 00:00:00 [facility] TD, NOS 2017-12-15 Completed University of 00:00:00 [facility] TD, NOS 2017-12-15 Completed University of 00:00:00 [facility] TD, NOS 2017-12-15 Completed University of 00:00:00 [facility] TD, NOS 2017-12-15 Completed University of 00:00:00 [facility] TD, NOS 2017-12-15 Completed University of 00:00:00 [facility] TD, NOS 2017-12-15 Completed University of 00:00:00 [facility] TD, NOS 2017-12-15 Completed University of 00:00:00 [facility] TD, NOS 2017-12-15 Completed University of 00:00:00 [facility] TD, NOS 2017-12-15 Completed University of 00:00:00 [facility] TD, NOS 2017-12-15 Completed University of 00:00:00 [facility] TD, NOS 2017-12-15 Completed University of 00:00:00 [facility] TD, NOS 2017-12-15 Completed University of 00:00:00 [facility] TD, NOS 2017-12-15 Completed University of 00:00:00 [facility] TD, NOS 2017-12-15 Completed University of 00:00:00 [facility] TD, NOS Unknown Completed [facility] SARS-COV-2 COVID-19 Unknown Completed Unive rsity of PFIZER VACCINE [facility] SARS-COV-2 COVID-19 Unknown Completed Unive rsity of PFIZER VACCINE [facility] Pneumococcal Unknown Completed University o f Polysaccharide, [place] [facility] PPSV23 (PNEUMOVAX) Branch SARS-COV-2 COVID-19 Unknown Completed Unive rsity of PFIZER VACCINE [facility] TD, NOS Unknown Completed [facility] SARS-COV-2 COVID-19 Unknown Completed Unive rsity of PFIZER VACCINE [facility] SARS-COV-2 COVID-19 Unknown Completed Unive rsity of PFIZER VACCINE [facility] Pneumococcal Unknown Completed University o f Polysaccharide, [place] [facility] PPSV23 (PNEUMOVAX) Branch SARS-COV-2 COVID-19 Unknown Completed Unive rsity of PFIZER VACCINE [facility] TD, NOS Unknown Completed [facility] SARS-COV-2 COVID-19 Unknown Completed Unive rsity of PFIZER VACCINE [facility] SARS-COV-2 COVID-19 Unknown Completed Unive rsity of PFIZER VACCINE [facility] Pneumococcal Unknown Completed University o f Polysaccharide, [place] [facility] PPSV23 (PNEUMOVAX) Branch SARS-COV-2 COVID-19 Unknown Completed Unive rsity of PFIZER VACCINE [facility] Pfizer SARS-CoV-2 Unknown Completed Univer sity of Vaccination (Luz Vargas MD, Cap) [facility] Pfizer SARS-CoV-2 Unknown Completed Univer sity of Vaccination ([facility] Alicia ZAMORA Cap) [facility] Pfizer SARS-CoV-2 Unknown Completed Univer sity of Vaccination ([facility] MD Cevallos) [facility] Vital Signs Vital Name Observation Time Observation Value Comments Source Systolic blood 2023-06-10 16:01:00 118 mm[Hg] Univer sity of pressure [facility] Diastolic blood 2023-06-10 16:01:00 70 mm[Hg] Unive rsity of pressure [facility] Heart rate 2023-06-10 16:01:00 83 /min [facility] Respiratory rate 2023-06-10 16:01:00 18 /min Univ ersity [facility] Body height 2023-06-10 16:01:00 154.9 cm [facility] Body weight 2023-06-10 16:01:00 73.936 kg per pt [facility] BMI 2023-06-10 16:01:00 30.80 kg/m2 [facility] Oxygen saturation in 2023-06-10 16:01:00 97 /min University of Arterial blood by [place] [facility] Pulse oximetry Branch Systolic blood 2022-12-06 20:21:00 131 mm[Hg] Univer sity of pressure [facility] Diastolic blood 2022-12-06 20:21:00 65 mm[Hg] Unive rsity of pressure [facility] Heart rate 2022-12-06 20:21:00 77 /min [facility] Body temperature 2022-12-06 20:21:00 37.06 Laly Univ ers[facility] Body height 2022-12-06 20:21:00 154.9 cm [facility] Body weight 2022-12-06 20:21:00 73.301 kg [facility] BMI 2022-12-06 20:21:00 30.53 kg/m2 [facility] Oxygen saturation in 2022-12-06 20:21:00 96 /min University of Arterial blood by [place] [facility] P[facility] oxim[facility] Branch Heart rate 2022-07-15 12:41:00 79 /min [facility] Respiratory rate 2022-07-15 12:41:00 18 /min Univ ersity [facility] Oxygen saturation in 2022-07-15 12:41:00 100 /min University of Arterial blood by [place] [facility] Pulse oxim[facility] Branch Systolic blood 2022-07-15 12:04:00 170 mm[Hg] Univer sity of pressure [facility] Diastolic blood 2022-07-15 12:04:00 72 mm[Hg] Unive rsity of pressure [facility] Body temperature 2022-07-15 12:04:00 36.78 Laly [facility] weight 2022-07-15 08:25:00 72.984 kg Universi [facility] BMI 2022-07-15 08:25:00 30.40 kg/m[facility] height 2022-07-13 07:49:00 154.9 cm Universi [facility] Systolic blood 2022-06-05 18:50:00 138 mm[Hg] Univer sity of [facility] Diastolic blood 2022-06-05 18:50:00 62 mm[Hg] [facility] Heart rate 2022-06-05 18:50:00 72 /min [facility] Body temperature 2022-06-05 18:50:00 36.5 Laly [facility] Respiratory rate 2022-06-05 18:50:00 16 /min [facility] Body height 2022-06-05 18:50:00 154.9 cm [facility] Body weight 2022-06-05 18:50:00 75.388 kg [facility] BMI 2022-06-05 18:50:00 31.40 kg/m2 [facility] Oxygen saturation in 2022-06-05 18:50:00 95 /min [facility] Arterial blood by [facility] Pulse oximetry Branch Procedures Procedure Date / Time Performing Clinician Source Performed MEDICAL RELEASE/CLEARANCE 2023-06-20 05:01:00 Doctor Unassigned, [facility] FORMS [place] [facility] HB ECG ROUTINE & RHYTHM 2023-06-10 16:05:51 Shanae Acuña [facility] COMP. METABOLIC PANEL 2023-05-14 16:16:00 Shanae Acuña Un [facility] ([id number]) [facility] LIPID PANEL (03048)(TOTAL 2023-05-14 16:16:00 Shanae Acuña [facility] CHOLESTEROL, [facility] TRIGLYCERIDES, HDL) CBC WITHOUT DIFF 2023-05-14 16:16:00 Shanae Acuña [facility] Medical [place] ASSIGNMENT OF BENEFITS 2023-05-14 16:07:37 Doctor Unassigned, [facility] Name Medical [place] MEDICAL RELEASE/CLEARANCE 2023-03-07 05:01:00 Doctor Unassigned, [facility] FORMS [place] [facility] [place] BASIC METABOLIC PANEL 2022-07-15 08:38:00 [facility] (NA, K, CL, CO2, GLUCOSE, Medica l Branch BUN, CREATININE, CA) VANCOMYCIN TROUGH 2022-07-15 08:38:00 Sandy Reyes [facility] CBC WITH DIFF 2022-07-15 08:38:00 lisa [facility] EXTERNAL PROVIDER RECORDS 2022-07-15 05:01:00 Doctor Unassigned, [facility] [place] [facility] BASIC METABOLIC PANEL 2022-07-14 10:36:00 Darline Tamayo [facility] (NA, K, CL, CO2, GLUCOSE, Medica l Branch BUN, CREATININE, CA) CBC WITH DIFF 2022-07-14 10:36:00 [place] [facility] URINALYSIS 2022-07-13 06:31:00 Cathy Delacruz [facility] URINE CULTURE 2022-07-13 06:31:00 Cathy Delacruz [facility] CT ABDOMEN PELVIS W 2022-07-13 06:11:17 Cathy Delacruz [facility] CONTRAST [facility] LACTIC ACID WHOLE BLOOD 2022-07-13 05:19:00 Cathy Delacruz [facility] COVID-19 (ID NOW RAPID 2022-07-13 05:15:00 Cathy Delacruz [facility] TESTING) Medical Branch LAB ONLY COVID 2022-07-13 05:15:00 Cathy Delacruz [facility] INTERPRETATION [facility] BLOOD CULTURE SCREEN 2022-07-13 05:12:00 Cathy Delacruz [facility] COMP. METABOLIC PANEL 2022-07-13 05:12:00 Cathy Delacruz [facility] ([id number]) [facility] CBC WITH DIFF 2022-07-13 05:12:00 Cathy Delacruz [facility] GLYCOSYLATED HEMOGLOBIN 2022-07-13 05:12:00 Darline Tamayo [facility] (A1C) [facility] NOTICE OF PRIVACY 2022-07-13 04:26:26 Doctor Ric Munroe [facility] PRACTICES [place] [facility] CONSENT/REFUSAL FOR 2022-07-13 04:23:01 Doctor Maxwell Munroe [facility] DIAGNOSIS AND TREATMENT [place] [facility] Plan of Care Planned Activity Planned Date Details Comments Source Future Scheduled 2023-07-04 COVID-19 Vaccination [facility] Test 14:24:39 (4 - Pfizer series) MD [facility] [code = COVID-19 Center Vaccination (4 - Pfizer series)] Encounters Start End Encounter Admission Attending Care Care Encounter Source Date/Time Date/Time Type Type Clinicians Facility Department ID 2022-07-17 Inpatient EZEQUIEL MARADIAGA MDA MDA [id number] 15:49:43 MAR dodd 2023-06-20 2023-06-20 Orders Doctor GEORGIE 1.2.840.114 [id number] Univers 00:00:00 00:00:00 Only Unassigned, LEIA [id number] ity of [place] [facility] [id number] [place] as [phone] [address] 2023-06-19 2023-06-19 Telephone Domenico [facility] [id number] Univers 00:00:00 00:00:00 Shanae RILEY [id number] ity [id number] [phone] [place] dicprince GANN 059 [facility] 2023-06-19 2023-06-19 Fritz Sarabia [facility] 1.2.840.114 [id number] Univers 00:00:00 00:00:00 [facility] [id number] it y of [place] [id number] [place] as LUCAS?BLEA [phone] N[place] dicprince KNEY 044 [place] [facility]ICAL OFF[facility]ILDING 2023-06-10 2023-06-10 Outpatient R DOMENICO [facility] [id number] Univers 11:30:00 11:53:53 SENDIL ity [facility] 2023-06-10 2023-06-10 [facility] 1.2.840.114 [id number] Univers 11:30:00 11:53:53 Visit Shanae RILEY [id number] ity [facility] [id number] [phone] [facility] 059 [facility] 2023-05-21 2023-05-21 Telephone [facility] [id number] Univers 00:00:00 00:00:00 Shanae RILEY [id number] ity of [facility] [id number] [phone] Nc dicnc SANJUANITA 059 [facility] 2023-05-15 2023-05-15 Telephone [facility] 1.2.840.114 [id number] Univers 00:00:00 00:00:00 [facility] [id number] it y of [place] [id number] [place] as LUCAS?BLEA [phone] N[place] victoria GAMBINOARIAS 044 [facility] OFFICE [facility] 2023-05-14 2023-05-14 Seam Finisher Jonha, Adc Lab Main [facility] 1.2.8 [id number] Univers 11:15:00 11:30:00 Visit Yue Thomas [id number] ity of [facility] [id number] [phone] Nc dicnc NAL 353 [facility] 2023-05-14 2023-05-14 Outpatient R WILLIAM [facility] [id number] Univers 11:15:00 11:15:00 YUE nesbitt of [facility] 2023-05-14 2023-05-14 Orders Doctor JACQUES 1.2.840.114 [id number] Univers 00:00:00 00:00:00 Only Unassigned, LEIA [id number] ity of [place] [facility] [id number] [place] [phone] [address] 2023-05-12 2023-05-12 Telephone [facility] 1.2.840.114 [id number] Univers 00:00:00 00:00:00 [facility] [id number] it y of [place] [facility] [id number] [place] as LUCAS?BLEA [phone] [address] OFFICE [facility] 2023-04-17 2023-04-17 [facility] 1.2.840.114 [id number] Univers 00:00:00 00:00:00 Shanae RILEY [id number] ity of [id number] [phone] [address] 2023-03-07 2023-03-07 Orders Doctor GEORGIE 1.2.840.114 [id number] Univers 00:00:00 00:00:00 Only Unassigned, LEIA [id number] ity of [place] [facility] [id number] [place] as [phone] [address] 2023-03-05 2023-03-[address] [facility] [id number] Univers 00:00:00 00:00:00 Shanae RILEY [id number] ity of [facility] [id number] [phone] [address] 2023-01-14 2023-01-14 [facility] 1.2.840.114 [id number] Univers 00:00:00 00:00:00 [facility] [id number] it y of [place] [facility] [id number] Pancoh as LUCAS?BLEA [phone] [address] 2022-12-17 2022-12-17 [facility] 1.2.840.114 [id number] Univers 00:00:00 00:00:00 Mohan RILEY [id number] i ty of [id number] [phone] Nc dical NAL 085 [facility] 2022-12-06 2022-12-06 Outpatient [facility] [id number] [facility] 14:00:00 14:45:03 SENDIL [facility] 2022-12-06 2022-12-[address] [facility] 1.2.840.114 [id number] [facility] 14:00:00 14:45:03 Visit Sendnm Jv OSVALDO [id number] ity of [facility] [id number] [phone] Nc dicnc NAL 059 [facility] 2022-12-06 2022-12-06 Outpatient R [facility] [id number] Univers 14:00:00 14:00:00 SENDIL [facility] 2022-08-28 2022-08-28 [facility] 1.2.840.114 [id number] Univers 00:00:00 00:00:00 Outreach [facility] [id number] i ty of [place] 4.2.7.2.686 [place] as LUCAS?BLEA [id number] Nc dical KNEY 044 [facility] 2022-08-26 2022-08-26 Outpatient EZEQUIEL [place] MDA MDA [id number] 09:12:04 09:36:05 GIOVANNI dodd 2022-08-19 2022-08-19 Outpatient VICKIE HOLLAND MDA MDA [id number] 11:32:19 12:15:04 Marv dodd 2022-07-29 2022-07-29 Outpatient EZEQUIEL [place] MDA MDA [id number] 09:03:12 09:45:31 GIOVANNI dodd 2022-07-15 2022-07-18 Inpatient JEFF HAWK 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 [id number] 16:52:00 12:23:00 YADIRA Kye dodd 2022-07-16 2022-07-16 Transition JOYCE Brand 1.2.840.114 [id number] Univers 00:00:00 00:00:00 of Care Lyla [facility] [id number] ity of [id number] [id number] [facility] 807 Branch 2022-07-16 2022-07-16 Patient Doctor GEORGIE 1.2.840.114 [id number] Univers 00:00:00 00:00:00 Secure Msg Unassigned, LEIA [id number] ity of [place] [facility] [id number] [place]anch[place] as [phone] [facility] 019 Branch 2022-07-15 2022-07-15 Inpatient EZEQUIEL HAWK MDA MDA [id number] 17:23:49 18:02:35 YADIRA dodd 2022-07-15 2022-07-15 Outpatient EZEQUIEL [place] MDA MDA [id number] 11:57:53 14:23:56 GIOVANNI dodd 2022-07-12 2022-07-15 Inpatient Enoch PEOPLESGABRIEL [facility] [id number] Univers 23:23:00 11:01:00 DARLINE ity of [facility] 2022-07-12 2022-07-15 [facility] Cathy Delacruz [facility] 1.2.840. 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 [id number] 04:56:00 09:50:00 GIOVANNI dodd 2022-07-03 2022-07-03 Outpatient EZEQUIEL MCCORMACK MDA MDA [id number] 08:26:35 08:44:27 RAFA dodd 2022-06-26 2022-06-26 Outpatient FELIX ROMEO MDA MDA [id number] 11:30:00 23:59:00 Marv dodd 2022-06-26 2022-06-26 Outpatient FELIX ROMEO MDA MDA [id number] 09:00:00 09:00:00 Marv o n 2022-06-26 2022-06-26 Outpatient FELIX ROMEO MDA MDA [id number] 09:00:00 09:00:00 Marv o yousif 2022-06-26 2022-06-26 Outpatient FELIX ROMEO MDA MDA [id number] 08:30:00 08:59:00 Marv o yousif 2022-06-26 2022-06-26 Outpatient FELIX ROMEO MDA MDA [id number] 06:26:49 08:29:00 Marv o yousif 2022-06-25 2022-06-25 Outpatient FELIX ROMEO MDA MDA [id number] 07:48:49 23:59:00 Marv o yousif 2022-06-25 2022-06-25 Outpatient FELIX ROMEO MDA MDA [id number] 07:48:15 23:59:00 Marvajith dodd 2022-06-18 2022-06-18 [facility] [id number] Univers 00:00:00 00:00:00 Management Annetta [place] [id number] [facility] [id number] Alo JORDAN [phone] [address] 2022-06-17 2022-06-17 Outpatient EZEQUIEL BASURTO, MDA MDA [id number] 11:23:37 23:59:00 DAYNE dodd 2022-06-17 2022-06-17 Outpatient EZEQUIEL BORUTA, MDA MDA [id number] 10:40:54 13:09:12 GIOVANNI dodd 2022-06-17 2022-06-17 Outpatient EZEQUIEL MCCORMACK, MDA MDA [id number] 10:41:06 10:41:06 RAFA dodd 2022-06-05 2022-06-05 Outpatient Gayle ACUÑA [facility] [id number] Univers 14:00:00 14:19:00 [facility] 2022-[facility]-05 2022-06-05 Office Domenico [facility] 1.2.840.114 [id number] Univers 14:00:00 14:19:00 Visit Sendil Jv OSVALDO [id number] ity of [id number] [phone] N[place] dical [facility] 059 [facility] 2022-06-05 2022-06-05 Outpatient [facility] [id number] Univers 14:00:00 14:00:00 SENDIL ity [facility] 2022-06-05 2022-06-05 Outpatient [facility] [id number] Univers 14:00:00 14:00:00 SENDIL ity [facility] 2022-06-05 2022-06-05 Outpatient EZEQUIEL MCCORMACK MDA MDA [id number] 10:24:03 10:24:03 RAFA Olivares rso n 2022-05-28 2022-05-28 Orders Doctor JACQUES 1.2.840.[id number] [place] [address] 00:00:00 00:00:00 Only Unassigned, LEIA 350.1.13.[address] [facility] 4.2.7.2.686 Pancho as [phone] [address] 2022-05-27 2022-05-27 Outpatient EZEQUIEL MCCORMACK MDA MDA [id number] 10:20:21 10:21:17 RAFA Olivares rso n 2022-05-27 2022-05-27 Outpatient EZEQUIEL GILBERT MDA MDA [id number] 08:26:52 10:18:32 GIOVANNI dodd 2022-05-27 2022-05-27 Outpatient EZEQUIEL GILBERT MDA MDA [id number] 08:16:24 08:21:34 GIOVANNI dodd 2022-05-06 2022-05-06 [facility] [id number] Univers 14:20:00 14:20:00 GURJIT ity [facility] 2022-04-25 2022-04-25 Outpatient EZEQUIEL BANEGAS MDA MDA [id number] MD 11:45:44 11:45:44 VANESA dodd 2022-04-25 2022-04-25 Outpatient EL MAKENZIE, MDA MDA [id number] MD 11:45:41 11:45:41 VANESA Jonesers o n 2022-04-25 2022-04-25 Outpatient EL MAKENZIE, MDA MDA [id number] MD 11:45:39 11:45:39 VANESA Jonesers o n 2022-04-25 2022-04-25 Outpatient EL MAKENZIE, MDA MDA [id number] MD 11:45:36 11:45:36 VANESA Marv o n 2022-04-25 2022-04-25 Outpatient EL MAKENZIE, MDA MDA [id number] MD 11:45:33 11:45:33 VANESA Jonesers o n 2022-04-25 2022-04-25 Outpatient EL MAKENZIE, MDA MDA [id number] MD 11:45:31 11:45:31 VANESA Marv o n 2022-04-25 2022-04-25 Outpatient EL MAKENZIE, MDA MDA [id number] MD 11:45:29 11:45:29 VANESA Marv o n 2022-04-25 2022-04-25 Outpatient EL MAKENZIE, MDA MDA [id number] MD 11:45:27 11:45:27 VANESA Jonesers o n 2022-04-25 2022-04-25 Outpatient EL MAKENZIE, MDA MDA [id number] MD 11:45:24 11:45:24 VANESA Marv o n 2022-04-25 2022-04-25 Outpatient EL MAKENZIE, MDA MDA [id number] MD 11:45:11 11:45:11 VANESA Marv o n 2022-04-25 2022-04-25 Outpatient EL MAKENZIE, MDA MDA [id number] MD 11:45:09 11:45:09 VANESA Marv o n 2022-04-25 2022-04-25 Outpatient EL MAKENZIE, MDA MDA [id number] MD 11:45:04 11:45:04 VANESA Marv o n 2022-04-22 2022-04-22 Outpatient R ELENITA MARROQUIN [facility] [id number] Univers 15:00:00 16:26:51 ity of [facility] 2022-04-22 2022-04-22 Office Elenita Marroquin [facility] 1.2.338.937 [id number] Univers 15:00:00 16:26:51 Visit Brian RILEY 350.1.13.10 i [place] [phone] Nc dical NAL 134 [facility] 2022-04-22 2022-04-22 Outpatient R ELENITA MARROQUIN [facility] [id number] Univers 15:00:00 16:26:51 ity of [facility] 2022-03-18 2022-03-18 Refill Cornell [facility] 1.2.840.114 [id number] Univers 00:00:00 00:00:00 Mohan RUSH 350.1.13.10 it y of [place] 4.2.7.2.686 [place]ancho [place] PROFESSIO [phone] Nc dical NAL [address] OFFICE [facility] ONE 2022-03-06 2022-03-06 Outpatient R LOPEZ [facility] [id number] Univers 13:13:09 23:59:00 ity of [facility] 2022-03-06 2022-03-06 [facility] Lopez [facility] 1.2.840.114 [id number] Univers 13:13:09 23:59:00 Encounter Cam OSVALDO 350.1.13.10 [place] [phone] [facility] [address] 2022-02-28 2022-02-28 Patient Doctor [facility] 1.2.840.114 [id number] Univers 00:00:00 00:00:00 Secure Msg Unassigned, ANGLEMIA 350.1.13.10 ity of [place] [phone] Nc dical NAL 059 [facility] 2022-02-27 2022-02-27 Seam Finisher Jonah, Adc Lab Main [facility] 1.2.8 40.114 [id number] Univers 11:00:00 11:15:00 Visit Mohan Sarabia 350.1.1 3.10 ity of [place] 4.2.7.2.686 [place] PROFESSIO [phone] Nc dical NAL 353 [facility] 2022-02-27 2022-02-27 Outpatient R DOMENICO [facility] [id number] Univers 11:00:00 11:00:00 SENDIL ity [facility] 2022-02-27 2022-02-27 [facility] [id number] Univers 11:00:00 11:00:00 SENDIL ity [facility] 2022-02-27 2022-02-27 Orders Doctor JACQUES 1.2.840.114 [id number] Univers 00:00:00 00:00:00 Only Unassigned, LEIA 350.1.13.10 ity of [place] [facility] 4.2.7.2.686 [place]ancho as [phone] [facility] [address] 2022-02-26 2022-02-26 Out[facility] [id number] Univers 10:30:00 11:51:01 SENDIL ity [facility] 2022-02-26 2022-02-26 Office Domenico [facility] 1.2.840.114 [id number] Univers 10:30:00 11:51:01 Visit Shanae RILEY 350.1.13.10 ity [facility] [place].2.7.2.[place] [facility] [phone] [place] 740309 [facility] 2022-02-26 2022-02-26 Outpatient Gayle ACUÑA [facility] [id number] Univers 10:30:00 11:51:01 SENDIL ity [facility] 2022-02-26 2022-02-26 Outpatient [facility] [id number] Univers 10:30:00 10:30:00 SENDIL ity [facility] 2022-02-12 2022-02-12 Outpatient [facility] [id number] Univers 10:45:33 23:59:00 SENDIL ity [facility] 2022-02-12 2022-02-12 Hospital [facility] 1.2.840.114 [id number] Univers 10:45:33 23:59:00 Encounter Shanae RILEY 350.1.13.10 ity of [place] [phone] [facility] [address] 2022-02-08 2022-02-08 Orders Doctor GEORGIE 1.2.840.114 [id number] Univers 00:00:00 00:00:00 Only Unassigned, LEIA 350.1.13.10 ity of [place] [facility] 4.2.7.2.686 [place]ancho as [phone] [facility] [address] 2022-02-08 2022[facility]02-[facility] 1.2.840.114 [id number] Univers 00:00:00 00:00:00 [facility] 350.1.13.10 it y of [place] [facility] 4.2.7.2.686 [place]o as PROFESSIO [phone] Nc dical [facility] [address] OFFICE [facility] ONE 2022-02-08 2022-02-08 Patient Doctor [facility] 1.2.840.114 [id number] Univers 00:00:00 00:00:00 Secure Msg UnassignedOSVALDO 350.1.13.10 ity of [place] [phone] Nc dical NAL 059 [facility] 2022-02-06 2022-02-06 Telephone [facility] 1.2.200.564 [id number] Univers 00:00:00 00:00:00 Sendsherley RILEY 350.1.13.10 ity of [place] [phone] Nc dical NAL 059 [facility] 2022-01-09 2022-01-09 [facility] [place] 1.2.840.114 [id number] Univers 00:00:00 00:00:00 Mohan RILEY 350.1.13.10 i ty of [place] ASCENCIOQIAN [place] [phone] Nc dical NAL 085 [facility] 2021-12-04 2021-12-04 Outpatient R CORNELL [facility] [id number] Univers 15:15:00 16:03:47 MOHAN bondsy of [facility] 2021-12-04 2021-12-04 Office [facility] 1.2.840.114 [id number] Univers 15:15:00 16:03:47 Visit [facility] 350.1.13.10 it y of [place] 4.2.7.2.686 Pancho as LUCAS?BLEA [phone] Nc victoria KRAUSE [address] [place] [address] OFFICE [facility] 2021-04-03 2021-04-03 Urgent Provider, [facility] Care [facility] 1.2.840.114 [id number] Univers 19:35:07 20:10:09 Care Richard [facility] 350.1.13.10 ity of [place] 4.2.7.2.686 [place] Professio [phone] [address] Office [facility] One 2021-04-03 2021-04-03 Outpatient [facility] [id number] Univers 19:20:00 19:20:00 [facility] 2021-03-27 2021-03-27 Refill [facility] [place] 1.2.840.114 [id number] Univers 00:00:00 00:00:00 [facility] 350.1.13.10 it y of [place] 4.2.7.2.686 [place] Professio [phone] [address] One 2021-02-26 2021-02-26 Office [facility] 1.2.840.114 [id number] Univers 14:11:44 14:45:47 Visit [facility] 350.1.13.10 it y of [place] 4.2.7.2.686 [place] Professio [phone] [address] Office [facility] One 2021-02-26 2021-02-26 Outpatient [facility] [id number] Univers 14:00:00 14:00:00 [facility] 2021-01-30 2021-01-30 Patient [facility] 1.2.840.114 [id number] Univers 00:00:00 00:00:00 Outreach Federico [facility] 350.1.13.10 i ty of [place] [phone] Nc dical [address] 2020-12-25 2020-12-25 Office [facility] 1.2.787.790 [id number] Univers 13:38:45 14:31:03 Visit Brian Osvaldo 350.1.13.10 i ty of [place] [phone] Nc dical nal [address] Building 2020-12-25 2020-12-25 Outpatient R LOPEZ ELENITA [facility] [id number] Univers 13:30:00 13:30:00 ity of [facility] 2020-12-20 2020-12-20 Hospital Lopez [facility] 1.2.840.114 [id number] Univers 13:00:00 23:59:00 Encounter Brian Leighton 350.1.13.10 ity of [place] [phone] [facility] [address] 2020-12-20 2020-12-20 Outpatient R ELENITA MARROQUIN [facility] [id number] Univers 00:00:00 00:00:00 ity of [facility] 2020-12-20 2020-12-20 Orders Doctor GEORGIE 1.2.840.114 [id number] Univers 00:00:00 00:00:00 Only Unassigned, LEIA 350.1.13.10 ity of [place] [facility] 4.2.7.2.686 Pancho as [phone] [facility] [address] 2020-12-09 2020-12-09 Refdomenic [facility] 1.2.840.114 [id number] Univers 00:00:00 00:00:00 [facility] 350.1.13.10 it y of [place] 4.2.7.2.686 [place] Professio [phone] [facility] nal [address] Office Building One 2020-12-05 2020-12-05 Outpatient R LOPEZ ELENITA [facility] [id number] Univers 15:30:00 15:30:00 ity of [facility] 2020-11-27 2020-11-27 Office Cornell [facility] 1.2.840.114 [id number] Univers 14:00:41 14:15:41 Visit [facility] 350.1.13.10 it y of [place] 4.2.7.2.686 [place] Profess[place] [phone] [address] Office [facility] One 2020-11-27 2020-11-27 Outpatient R CORNELL [facility] [id number] Univers 14:00:00 14:00:00 MOHAN ity of [facility] 2020-11-01 2020-11-01 Office Lopez [facility] 1.2.158.608 [id number] Univers 13:46:08 14:16:08 Visit Brian Riley 350.1.13.10 i ty of [place] [phone] Nc dical [address] 2020-11-01 2020-11-01 Outpatient R LOPEZ [facility] [id number] Univers 13:30:00 13:30:00 ity of [facility] 2020-11-01 2020-11-01 Orders Doctor GEORGIE 1.2.840.114 [id number] Univers 00:00:00 00:00:00 Only Unassigned, LEIA 350.1.13.10 ity of [place] [facility] 4.2.7.2.686 [place] as [phone] [address] 2020-10-03 2020-10-03 Case [facility] 1.2.800.551 [id number] Univers 00:00:00 00:00:00 Management Annetta Riley 350.1.13.10 ity of [place] [phone] Nc dical [address] 2020-10-02 2020-10-02 Office Lopez [facility] 1.2.397.840 [id number] Univers 10:41:59 12:21:56 Visit Brian Riley 350.1.13.10 i ty of [place]2.[place] [phone] [address] 2020-10-02 2020-10-02 Outpatient R LOPEZ [facility] [id number] Univers 10:30:00 10:30:00 ity of [facility] 2020-09-01 2020-09-01 Telephone [facility] 1.2.840.114 [id number] Univers 00:00:00 00:00:00 Annetta Osvaldo 350.1.13.10 i ty of [place] [phone] Nc dical nal 134 [facility] 2020-08-28 2020-08-28 [facility] 1.2.840.114 [id number] Univers 15:47:13 16:02:13 Visit [facility] 350.1.13.10 it y of [place] 4.2.7.2.686 [place] Professio [phone] [facility] 044 [facility] One 2020-08-28 2020-08-28 Outpatient R CORNELL [facility] [id number] [facility] 15:30:00 15:30:00 MOHAN [facility] 2020-07-24 2020-07-24 [facility] 1.2.840.114 [id number] [facility] 00:00:00 00:00:00 Mohan Leighton 350.1.13.10 i ty of [place] [phone] [facility] 044 [facility] 2020-07-24 2020-07-24 [facility] 1.2.840.114 [id number] Univers 00:00:00 00:00:00 Hilda Riley 350.1.13.10 i [place] of [place] [phone] Nc dicnc nal 085 [facility] 2020-07-13 2020-07-13 Office [facility] 1.2.840.114 [id number] Univers 09:56:29 10:52:45 Visit Hilda Riley 350.1.13.10 i [place] [phone] Nc dicnc nal 085 [facility] 2020-07-13 2020-07-13 Outpatient R HILDA ZULUAGA [facility] 10 [id number] Univers 09:40:00 09:40:00 HILDA ZULUAGA i ty of [facility] 2020-06-28 2020-06-28 Outpatient R CORNELL [facility] [id number] Univers 13:00:00 13:00:00 MOHAN [facility] 2020-06-08 2020-06-08 Outpatient R DOMENICO [facility] [id number] Univers 13:00:00 13:00:00 [facility] 2020-05-11 2020-05-11 Outpatient R HILDA ZULUAGA [facility] 10 [id number] Univers 14:40:00 14:40:00 HILDA ZULUAGA i ty [facility] 2020-04-18 2020-04-18 Refdomenic [facility]adeARTESIA [facility] 1.2.840.114 [id number] Univers 00:00:00 00:00:00 [facility] 350.1.13.10 it y of [place] 4.2.7.2.686 [place] Professio [phone] [address] 2020-04-17 2020-04-17 [facility] [place] 1.2.840.114 [id number] Univers 00:00:00 00:00:00 [facility] 350.1.13.10 it y of [place] 4.2.7.2.686 [place] Professio [phone] [address] Office Building One 2020-03-29 2020-03-29 Outpatient R CORNELL [facility] [id number] Univers 14:00:00 14:00:00 MOHAN [facility] 2020-03-29 2020-03-29 Telemedici [facility] [place] 1.2.840.114 [id number] Univers 08:06:17 08:21:17 ne Visit Mohan Leighton 350.1.13.10 ity of [place]2.[place] [phone] [place] [address] Branch [facility] 2020-03-10 2020-03-10 Outpatient R HILDA ZULUAGA [facility] 10 [id number] Univers 10:40:00 10:40:00 HILDA ZULUAGA i ty of [facility] 2020-03-10 2020-03-10 Telemedici Preeti [facility] 1.2.840.114 [id number] Univers 08:11:26 08:31:26 ne Visit Hilda Riley 350.1.13.10 ity of [place] [phone] [facility] 085 [facility] 2020-02-23 2020-02-23 [facility] 1.2.840.114 [id number] Univers 00:00:00 00:00:00 [facility] 350.1.13.10 it y of [place] 4.2.7.2.686 [place] Professio [phone] [facility] [address] Office [facility] 2020-02-22 2020-02-22 [facility] 1.2.840.114 [id number] Univers 00:00:00 00:00:00 [facility] 350.1.13.10 it y of [place] 4.2.7.2.686 [place] Professio [phone] [facility] [address] Office [facility] 2020-02-21 2020-02-21 [facility] 1.2.840.114 [id number] Univers 00:00:00 00:00:00 Mohan Riley 350.1.13.10 i ty of [place].2.[place] [phone] [facility] [address] 2019-12-28 2020-02-16 Office [facility] 1.2.840.114 [id number] Univers 16:27:55 21:36:02 Visit Tammi Riley 350.1.13.10 ity of [place]2.[place] [phone] [facility] nal 059 [facility] 2020-02-16 2020-02-[address] [facility] 1.2.932.835 [id number] Univers 00:00:00 00:00:00 Shanae Riley 350.1.13.10 ity of [place] [phone] Nc dicnc nal 059 [facility] 2020-02-03 2020-02-03 Office Domenico [facility] 1.2.840.114 [id number] Univers 11:32:32 12:15:52 Visit Shanae Riley 350.1.13.10 ity of [place] [phone] Nc dicnc nal 059 [facility] 2020-02-03 2020-02-03 Outpatient R DOMENICO [facility] [id number] Univers 11:30:00 11:30:00 SENDIL ity of [facility] 2020-01-28 2020-01-28 Orders Doctor GEORGIE 1.2.840.114 [id number] Univers 00:00:00 00:00:00 Only Unassigned, LEIA 350.1.13.10 ity of [place] [facility] 4.2.7.2.686 Pancho as [phone] [address] 2020-01-20 2020-01-20 Office [facility] 1.2.840.114 [id number] Univers 13:09:44 13:29:44 Visit Hilda Riley 350.1.13.10 i ty of [place]2.[place] [phone] Nc dicnc nal 085 [facility] 2020-01-18 2020-01-18 Fritz Sarabia [facility] 1.2.840.114 [id number] Univers 00:00:00 00:00:00 [facility] 350.1.13.10 it y of [place] 4.2.7.2.686 [place] Professio [phone] Nc dical nal [address] Office [facility] One 2020-01-18 2020-01-18 Telephone Domenico [facility] 1.2.322.363 [id number] Univers 00:00:00 00:00:00 Shanae Riley 350.1.13.10 ity of [place].2.[place] [phone] Nc dical nal 059 [facility] 2019-12-28 2019-12-28 Outpatient Gayle MABRY [facility] [id number] Univers 15:00:00 16:28:04 TAMMI cohen f [facility] 2019-12-28 2019-12-28 Orders Doctor GEORGIE 1.2.840.114 [id number] Univers 00:00:00 00:00:00 Only Unassigned, LEIA 350.1.13.[address] [facility] 4.2.7.2.686 [place] as [phone] [address] 2019-12-21 2019-12-21 Office [facility] 1.2.840.114 [id number] Univers 15:35:51 16:55:24 Visit Shanae Riley 350.1.13.10 ity of [place].2.[place] [phone] [facility] nal 059 [facility] 2019-11-25 2019-11-26 Outpatient [facility] [id number] Univers 15:12:11 18:31:00 DARLINE itari [facility] 2019-07-22 2019-07-22 Office [facility] 1.2.840.114 [id number] Univers 13:01:45 14:01:34 Visit Hilda Riley 350.1.13.10 i ty [facility] 4.2.7.2.[place] [phone] Nc dicnc nal 085 [facility] 2015-08-11 2015-08-11 Outpatient Maluf_C [facility] [id number] 021 [place] 03:01:00 03:01:00 1214 [facility] Results Test Description Test Time Test Comments Results Result Comments Source Basic Metabolic Panel (NA, K, CL, CO2, GLUCOSE, BUN, 2022-07 11:31:04 CREATININE, [place]) Test Item Value Reference Range Interpretation Comme nts NA (test code = 4788139844) 139 mmol/L 135-145 K (test code = 2405715597) 4.2 mmol/L 3.5-5 CL (test code = 2783118142) 109 mmol/L 98-108 H CO2 TOTAL (test code = 4929027744) 26 mmol/L 23-31 AGAP (test code = 9143805821) 2-16 BUN (test code = 4213890716) 16 mg/dL 7-23 GLUCOSE (test code = 3749918675) 118 mg/dL 70-110 H CREATININE (test code = 0.90 mg/dL 0.5-1.04 5821570141) CALCIUM (test code = 2415693424) 8.4 mg/dL 8.6-10.6 L eGFR (test code = 0826230469) mL/min/1.73m2 GERMAIN (test code = GERMAIN) Association of Glomerular Filtration Rate (GFR) and Staging of Kidney Disease* + +-------- + ------+| GFR (mL/min/1.73 m2) ?| With Kidney Damage ?| ?Without Kidney Damage+ +-- + +| ?>90 ?| ?Stage one ?| ? Normal ?+ +------- + -------+| ?60-89 ?| ?Stage two ?| ? Decreased GFR ? + +-------- + ------+| ?30-59 ?| ?Stage three ?| ? Stage three ? + +-------- + ------+| ?15-29 ?| ?Stage four ? | ? Stage four ?+ +------- + -------+| ?<15 (or dialysis) ? ?| ?Stage five ? | ? Stage five ?+ +------- + -------+ *Each stage assumes the associated GFR level has been in effect for at least three months. ?Stages 1 to 5, with or without kidney disease, indicate chronic kidney disease. Notes: Determination of stages one and two (with eGFR >59mL/min/1.73 m2) requires estimation of kidney damage for at least three months as defined by structural or functional abnormalities of the kidney, manifested by either:Pathological abnormalities or Markers of kidney damage (including abnormalities in the composition of the blood or urine or abnormalities in imaging tests). Lab Interpretation (test code = Abnormal 55866-4) [facility] with [id number] 10:42:41 Test Item Value Reference Range Interpretation Comments WBC (test code = See_Comment H [Automated 6690-2) message] The sy stem which generated this result transmitted reference range : 4.30 - 11.10 10*3/?L. The reference range was not used to interpret this result as normal/abnormal . RBC (test code = See_Comment [Automated 789-8) message] The sy stem which generated this result transmitted reference range : 3.93 - 5.25 10*6/?L. The reference range was not used to interpret this result as normal/abnormal . HGB (test code = 11.9 g/dL 11.6-15 718-7) HCT (test code = 37.1 % 35.7-45.2 4544-3) MCV (test code = 89.4 fL 80.6-95.5 787-2) MCH (test code = 28.7 pg 25.9-32.8 785-6) MCHC (test code = 32.1 g/dL 31.6-35.1 786-4) RDW-SD (test code = 44.5 fL 39-49.9 66533-4) RDW-CV (test code = 13.6 % 12-15.5 788-0) PLT (test code = See_Comment [Automated 777-3) message] The sy stem which generated this result transmitted reference range : 166 - 358 10*3/ ?L. The reference r darci was not used to interpret this result as normal/abnormal . MPV (test code = 9.5 fL 9.5-12.9 09360-0) NRBC/100 WBC (test See_Comment [Automat ed code = 3915217139) message] The system which generated this result transmitted reference range : 0.0 - 10.0 /100 WBCs. The refer ence range was not u sed to interpret th is result as normal/abnormal . NRBC x10^3 (test code See_Comment [Auto mated = [id number]) message] The s ystem which generated this result transmitted reference range : 10*3/?L. The reference range was not used to interpret this result as normal/abnormal . GRAN MAT (NEUT) % 72.1 % (test code = 770-8) IMM GRAN % (test code 0.60 % = [id number]) LYMPH % (test code = 17.0 % 736-9) MONO % (test code = 7.3 % 5905-5) EOS % (test code = 2.7 % 713-8) BASO % (test code = 0.3 % 706-2) GRAN MAT x10^3(ANC) 9.14 10*3/uL 1.88-7.09 H (test code = [id number]) IMM GRAN x10^3 (test 0.08 10*3/uL 0-0.06 H code = [id number]) LYMPH x10^3 (test code 2.16 10*3/uL 1.32-3.29 = 731-0) MONO x10^3 (test code 0.92 10*3/uL 0.33-0.92 = 742-7) EOS x10^3 (test code = 0.34 10*3/uL 0.03-0.39 711-2) BASO x10^3 (test code 0.04 10*3/uL 0.01-0.07 = 704-7) Lab Interpretation Abnormal (test code = 04336-6) [facility]13 08:51:22 Test Item Value Reference Range Interpretation Comments HGB A1C (test code = 6.1 % 4-5.7 H 4548-4) GERMAIN (test code = GERMAIN) Reference RangesNormal: <5.7%Prediabetes: 5.7 - 6.4%Diabetes: > 6.5% Lab Interpretation (test Abnormal code = 00265-8) [id number] 06:08:06 Test Item Value Reference Range Interpretation Comments WBC (test code = See_Comment H [Automated 2290-2) message] The system which generated this result transmit maria dolores reference range : 4.30 - 11.10 10*3/?L. The reference range was not used to interpret this result as normal/abnormal . RBC (test code = See_Comment [Automated 229-8) message] The system which generated this result transmit maria dolores reference range : 3.93 - 5.25 10*6/?L. The reference range was not used to interpret this result as normal/abnormal . HGB (test code = 13.8 g/dL 11.6-15 718-7) HCT (test code = 42.0 % 35.7-45.2 4544-3) MCV (test code = 87.5 fL 80.6-95.5 787-2) MCH (test code = 28.8 pg 25.9-32.8 785-6) MCHC (test code = 32.9 g/dL 31.6-35.1 786-4) RDW-SD (test code = 43.0 fL 39-49.9 99178-5) RDW-CV (test code = 13.4 % 12-15.5 788-0) PLT (test code = See_Comment [Automated 777-3) message] The system which generated this result transmit maria dolores reference range : 166 - 358 10*3/ ?L. The reference range was not u sed to interpret th is result as normal/abnormal . MPV (test code = 9.7 fL 9.5-12.9 38369-0) NRBC/100 WBC (test See_Comment [Automat ed code = [id number]) message] The system which generated this result transmit maria dolores reference range : 0.0 - 10.0 /100 WBCs. The reference range was not used to interpret this result as normal/abnormal . NRBC x10^3 (test code See_Comment [Auto mated = [id number]) message] The system which generated this result transmit maria dolores reference range : 10*3/?L. The reference range was not used to interpret this result as normal/abnormal . GRAN MAT (NEUT) % 84.8 % (test code = 770-8) IMM GRAN % (test code 0.60 % = 1257868984) LYMPH % (test code = 7.9 % 736-9) MONO % (test code = 5.7 % 5905-5) EOS % (test code = 0.7 % 713-8) BASO % (test code = 0.3 % 706-2) GRAN MAT x10^3(ANC) 16.99 10*3/uL 1.88-7.09 H (test code = 7929290456) IMM GRAN x10^3 (test 0.12 10*3/uL 0-0.06 H code = 1688353750) LYMPH x10^3 (test code 1.59 10*3/uL 1.32-3.29 = 731-0) MONO x10^3 (test code 1.14 10*3/uL 0.33-0.92 H = 742-7) EOS x10^3 (test code = 0.15 10*3/uL 0.03-0.39 711-2) BASO x10^3 (test code 0.06 10*3/uL 0.01-0.07 = 704-7) Lab Interpretation Abnormal (test code = 19957-4) [facility]"
[2023-09-15 16:55] LABS: Absolute Lymphocytes (CBC) 0.4 K/uL (0.7-4.9); Hematocrit 42.9 % (36.0-45.0); Lymphocytes % 2.2 % (15.3-44.8); MCV 86.7 fL (80-100); Platelets 282 thou/uL (152-406); RBC Red Blood Cell Count 4.95 M/uL (3.86-4.86)
[2023-09-15 17:14] LABS: Albumin 3.6 g/dL (3.4-5.0); Bilirubin Total 0.3 mg/dL (0.2-1.0); Potassium 4.2 mEq/L (3.5-5.1); Troponin High Sensitivity 5.4 pg/mL (<58.9)
--- NOTE | 2023-09-15 18:25 | RAD REPORT ---
EXAM DESCRIPTION: CTAbdomen Pelvis W Contrast - 09/15/2023 6:15 pm CLINICAL HISTORY: Abdominal pain. ABD PAIN COMPARISON: Abdomen Pelvis W Contrast dated 01/01/2017 TECHNIQUE: Biphasic CT imaging of the abdomen and pelvis was performed with 100 ml non-ionic IV cont rast. All CT scans are performed using dose optimization technique as appropriate and may include automated exposure control or mA/KV adjustment according to patient size. FINDINGS: The inferior lung willis are mildly emphysematous but clear. The liver, spleen, pancreas, adrenal glands and kidneys are within normal limits. Small renal cysts b ilaterally. Gallbladder is distended. No bowel obstruction, free air, free fluid or abscess. Aortoiliac atherosclerosis. Diverticulosis col i is present without diverticulitis seen. Appendectomy. No evidence of significant lymphadenopathy. No suspicious bony findings. IMPRESSION: No acute intra-abdominal or pelvic finding.
[2023-09-15 21:28] LABS: Urine Bacteria None Seen /HPF (<20); Urine Bilirubin NEGATIVE (Negative); Urine Blood 2+ (Negative); Urine Clarity Clear (Clear); Urine Color Light-Yellow (Yellow); Urine Glucose NEGATIVE (Negative); Urine Mucus Slight /HPF (None Seen); Urine Protein TRACE (Negative); Urine Urobilinogen Normal (Normal); Urine pH 5.5 (5.0-7.0)
[2023-09-15 21:43] LABS: Specific Gravity > 1.030 (1.005-1.030)
--- NOTE | 2023-09-15 21:57 | ER ---
Nurse's Notes [facility] Name: Nury Oates Age: 78 yrs Sex: Female : 1945 Arrival Date: 09/15/2023 Time: 16:15 Bed 18 Private MD: Diagnosis: Vomiting;Abdominal pain, Generalized;Elevated white blood cell count;Dehydration Presentation: 09/15 16:33 Chief complaint: Patient states: she has been feeling nauseated for a few days after ap3 having an endoscopy on 09/10. Coronavirus screen: At this time, the client does not indicate any symptoms associated with coronavirus-19. Ebola Screen: No symptoms or risks identified at this time. Initial Sepsis Screen: Does the patient meet any 2 criteria? HR > 90 bpm. Does the patient have a suspected source of infection? No. Patient's initial sepsis screen is negative. Risk Assessment: Do you want to hurt yourself or someone else? Patient reports no desire to harm self or others. Onset of symptoms is unknown. Care prior to arrival: Medication(s) given: zofran 4 mg, IV initiated. 20 GA, in the left forearm. 16:33 Method Of Arrival: EMS: [facility] ap3 16:33 Acuity: JORGE 3 ap3 Triage Assessment: 16:37 General: Appears uncomfortable, Behavior is calm, cooperative, appropriate for age. ap3 Pain: Complains of pain in abdomen. Neuro: Level of Consciousness is awake, alert, obeys commands, Oriented to person, place, time, situation. Cardiovascular: Patient's skin is warm and dry. Respiratory: Airway is patent Respiratory effort is even, unlabored, Respiratory pattern is regular, symmetrical. GI: Reports lower abdominal pain, upper abdominal pain, nausea. Historical: - Allergies: 16:36 Aspirin; ap3 16:36 Tape; ap3 16:36 unknown ingredient in an inhaler; ap3 - PMHx: 16:36 Hypertension; ap3 - Immunization history:: Client reports receiving the 2nd dose of the Covid vaccine. - Social history:: Smoking status: Patient denies any tobacco usage or history of. Screenin:37 Abuse screen: Denies threats or abuse. Nutritional screening: No deficits noted. ap3 Tuberculosis screening: No symptoms or risk factors identified. 19:31 [facility] ED Fall Risk Assessment (Adult) History of falling in the last 3 months, jw7 including since admission No falls in past 3 months (0 pts) Confusion or Disorientation No (0 pts) Intoxicated or Sedated No (0 pts) Impaired Gait No (0 pts) Mobility Assist Device Used No (0 pt) Altered Elimination No (0 pt) Score/Fall Risk Level 0 - 2 = Low Risk Oriented to surroundings, Maintained a safe environment. Assessment: 19:29 General: Appears in no apparent distress. comfortable, Behavior is calm, cooperative. jw7 Pain: Denies pain. Neuro: Jiménez Agitation-Sedation Scale (RASS): 0 - Alert and Calm. Cardiovascular: Capillary refill < 3 seconds Clubbing of nail beds is absent JVD is absent Patient's skin is warm and dry. Respiratory: Airway is patent Trachea midline Respiratory effort is even, unlabored, Respiratory pattern is regular, symmetrical. GI: Abdomen is round non-distended. GI: Bowel sounds present X 4 quads. : No deficits noted. No signs and/or symptoms were reported regarding the genitourinary system. EENT: No deficits noted. No signs and/or symptoms were reported regarding the EENT system. Derm: Skin is intact, is healthy with good turgor, Skin is dry, Skin is normal, Skin temperature is warm. Derm: No signs and/or symptoms reported regarding the dermatologic system. Musculoskeletal: Circulation, motion, and sensation intact. Range of motion: intact in all extremities. 21:15 Reassessment: Patient appears in no apparent distress at this time. No changes from critical access hospital previously documented assessment. Patient and/or family updated on plan of care and expected duration. Pain level reassessed. Patient is alert, oriented x 3, equal unlabored respirations, skin warm/dry/pink. 22:00 Reassessment: Patient appears in no apparent distress at this time. Patient and/or jw7 family updated on plan of care and expected duration. Pain level reassessed. Patient is alert, oriented x 3, equal unlabored respirations, skin warm/dry/pink. c/o abdominal pain, and nausea. 23:15 Reassessment: Patient appears in no apparent distress at this time. Patient and/or 7 family updated on plan of care and expected duration. Pain level reassessed. Patient is alert, oriented x 3, equal unlabored respirations, skin warm/dry/pink. Patient states feeling better. 09/16 00:56 Reassessment: Patient appears in no apparent distress at this time. No changes from jw7 previously documented assessment. Patient and/or family updated on plan of care and expected duration. Pain level reassessed. Patient is alert, oriented x 3, equal unlabored respirations, skin warm/dry/pink. Vital Signs: 09/15 16:33 BP 155 / 80; Pulse 97; Resp 18; Temp 98.6(O); Pulse Ox 96% on R/A; Weight 74.39 kg; ap3 Height 5 ft. 1 in. ; 17:25 BP 133 / 51; Pulse 82; Pulse Ox 96% on R/A; ap3 18:50 BP 119 / 77; Pulse 92; Pulse Ox 98% on R/A; ap3 19:15 BP 124 / 58; Pulse 92; Resp 18 S; Pulse Ox 97% on R/A; jw7 21:00 BP 155 / 57; Pulse 99; Resp 19 S; Pulse Ox 95% on R/A; jw7 22:00 BP 131 / 59; Pulse 95; Resp 20 S; Pulse Ox 95% on R/A; jw7 23:00 BP 121 / 55; Pulse 90; Resp 21 S; Pulse Ox 95% on R/A; jw7 09/16 00:00 BP 129 / 54; Pulse 85; Resp 16 S; Pulse Ox 96% on R/A; jw7 09/15 16:33 Body Mass Index 30.99 (74.39 kg, 154.94 cm) ap3 ED Course: 09/15 16:21 Patient arrived in ED. eb 16:21 Yessenia Adams MD is Attending Physician. sp3 16:36 Triage completed. ap3 16:38 Arm band placed on right wrist. ap3 16:38 Patient has correct armband on for positive identification. Bed in low position. Call ap3 light in reach. Side rails up X2. Pulse ox on. NIBP on. Door closed. Noise minimized. 17:09 Graciela Layton, SARAH is Primary Nurse. ap3 17:10 Initial lab(s) drawn, by me, sent to lab. EKG done, by ED staff, reviewed by Yessenia Adams MD. Maintain EMS IV. Dressing intact. Good blood return noted. Site clean \T\ dry. Gauge \T\ site: 20 left forearm. 17:49 Attending Physician role handed off by Yessenia Adams MD ms3 17:49 Krish Barnhart DO is Attending Physician. ms3 18:16 CT Abd/Pelvis - IV Contrast Only In Process Unspecified. EDMS 21:15 Straight cath inserted, using sterile technique, 14 Fr. Specimen obtained. Returned jw7 clear yellow urine. Patient tolerated well. 21:15 Urinalysis w/ reflexes Sent. jw7 21:22 Attending Physician role handed off by Krish Barnhart DO ms3 21:22 Giacomo Garza MD is Attending Physician. ms3 21:55 Dayo Kasper MD is Hospitalizing Provider. [facility] 22:12 Raj Gil is Hospitalizing Provider. [facility] 23:36 Provided Education on: need for admit. jw7 23:36 No provider procedures requiring assistance completed. Patient admitted, IV remains in jw7 place. 09/16 02:17 Primary Nurse role handed off by Graciela Layton RN as6 02:27 Tina Melendez RN is Primary Nurse. jw7 Administered Medications: 09/15 16:47 Drug: NS 0.9% IV 1000 ml IV at 1 bolus Per protocol; 1000 mL bolus Route: IV; Rate: 1 ap3 bolus; Site: left forearm; 23:15 Follow up: Response: No adverse reaction; IV Status: Completed infusion; IV Intake: jw7 1000ml 22:00 Drug: Rocephin IV 1 grams IV at per protocol once; Given slow IV push per pharmacy jw7 instructions Route: IV; Rate: per protocol; Site: left forearm; 23:49 Follow up: Response: No adverse reaction; IV Status: Completed infusion; IV Intake: [id number] 22:00 Drug: NS 0.9% IV 1000 ml IV at 1 bolus Per protocol; 1000 mL bolus Route: IV; Rate: 1 jw7 bolus; Site: left forearm; 23:50 Follow up: Response: No adverse reaction; IV Status: Completed infusion; IV Intake: jw7 1000ml 22:00 Drug: Famotidine IVP 20 mg IVP once; dilute with 10 mL 0.9% NaCl; give over 2 minutes jw7 Route: IVP; Site: left forearm; 23:49 Follow up: Response: No adverse reaction jw7 22:00 Drug: Ondansetron IVP 4 mg IVP once; over 2 minutes Route: IVP; Site: left forearm; jw7 23:49 Follow up: Response: No adverse reaction jw7 23:14 Drug: Promethazine IM 25 mg IM once Route: IM; Site: left deltoid; jw7 23:49 Follow up: Response: No adverse reaction jw7 Medication: 19:31 VIS not applicable for this client. jw7 Intake: 23:15 IV: 1000ml; Total: 1000ml. jw7 23:49 IV: 10ml; Total: 1010ml. jw7 23:50 IV: 1000ml; Total: 2010ml. jw7 Outcome: 21:57 Decision to Hospitalize by Provider. ashtyn 23:36 Admitted to ER Hold. Please see [facility] for further documentation. jw7 23:36 Condition: stable 23:36 Instructed on the need for admit, Demonstrated understanding of instructions, 09/16 07:53 Patient left the ED. ko1 Signatures: Dispatcher [employer] EDMS Giacomo Garza MD MD cha Prokisch, Amanda RN RN ap3 Zunilda Edwards Marcus, DO DO ms3 Yessenia Adams MD MD sp3 Mani Franks, RN RN as6 Tina Melendez RN RN jw7 Linda Lam, RN RN ko1 Corrections: (The following items were deleted from the chart) 09/15 23:42 23:37 Reassessment: Patient appears in no apparent distress at this time. Patient jw7 and/or family updated on plan of care and expected duration. Pain level reassessed. Patient is alert, oriented x 3, equal unlabored respirations, skin warm/dry/pink. jw7 23:42 23:37 Reassessment: Patient appears in no apparent distress at this time. Patient jw7 and/or family updated on plan of care and expected duration. Pain level reassessed. Patient is alert, oriented x 3, equal unlabored respirations, skin warm/dry/pink. c/o abdominal pain, and nausea jw7
--- NOTE | 2023-09-15 21:57 | EDPHYS ---
Physician Documentation [facility] Name: Nury Oates Age: 78 yrs Sex: Female : 1945 Arrival Date: 09/15/2023 Time: 16:15 Bed 18 Private MD: SHERI Physician Giacomo Garza HPI: 09/15 17:29 This 78 yrs old Female presents to ER via EMS with complaints of nausea and abdominal sp3 pain. 17:29 78-year-old female with history of hypertension presents to the ED with chief complaint sp3 nausea and abdominal pain. Patient had a colonoscopy performed on September 10, 5 days ago after routine interval secondary to prior polyps on past colonoscopies. No complications are reported by the patient subsequent to the procedure. She states that she has not had significant bowel movements since the procedure and she has felt some degree of mild nausea since the procedure itself. Today became a little bit worse coupled with some mid abdominal pain which is why she presented to the ED via EMS after 911 activation. She denies fever, headache, neck pain, shortness of breath, chest pain, diarrhea, rash, syncope, near syncope, or any other signs or symptoms on ROS at this time.. Historical: - Allergies: 16:36 Aspirin; ap3 16:36 Tape; ap3 16:36 unknown ingredient in an inhaler; ap3 - PMHx: 16:36 Hypertension; ap3 - Immunization history:: Client reports receiving the 2nd dose of the Covid vaccine. - Social history:: Smoking status: Patient denies any tobacco usage or history of. ROS: 17:31 Constitutional: Negative for fever, chills, and weight loss, Eyes: Negative for injury, sp3 pain, redness, and discharge, ENT: Negative for injury, pain, and discharge, Neck: Negative for injury, pain, and swelling, Cardiovascular: Negative for chest pain, palpitations, and edema, Respiratory: Negative for shortness of breath, cough, wheezing, and pleuritic chest pain, Back: Negative for injury and pain, MS/Extremity: Negative for injury and deformity, Skin: Negative for injury, rash, and discoloration, Neuro: Negative for headache, weakness, numbness, tingling, and seizure, Psych: Negative for depression, anxiety, suicide ideation, homicidal ideation, and hallucinations, Allergy/Immunology: Negative for hives, rash, and allergies, Endocrine: Negative for neck swelling, polydipsia, polyuria, polyphagia, and marked weight changes, Hematologic/Lymphatic: Negative for swollen nodes, abnormal bleeding, and unusual bruising, 17:31 All other systems are negative, Exam: 17:31 Constitutional: This is a well developed, well nourished patient who is awake, alert, sp3 and in no acute distress. Head/Face: Normocephalic, atraumatic. Neck: Trachea midline, no thyromegaly or masses palpated, and no cervical lymphadenopathy. Supple, full range of motion without nuchal rigidity, or vertebral point tenderness. No Meningismus. Chest/axilla: Normal chest wall appearance and motion. Nontender with no deformity. No lesions are appreciated. Cardiovascular: Regular rate and rhythm with a normal S1 and S2. No gallops, murmurs, or rubs. Normal PMI, no JVD. No pulse deficits. Respiratory: Lungs have equal breath sounds bilaterally, clear to auscultation and percussion. No rales, rhonchi or wheezes noted. No increased work of breathing, no retractions or nasal flaring. Back: No spinal tenderness. No costovertebral tenderness. Full range of motion. Skin: Warm, dry with normal turgor. Normal color with no rashes, no lesions, and no evidence of cellulitis. MS/ Extremity: Pulses equal, no cyanosis. Neurovascular intact. Full, normal range of motion. Neuro: Awake and alert, GCS 15, oriented to person, place, time, and situation. Cranial nerves II-XII grossly intact. Motor strength 5/5 in all extremities. Sensory grossly intact. Cerebellar exam normal. Normal gait. Psych: Awake, alert, with orientation to person, place and time. Behavior, mood, and affect are within normal limits. 17:31 Abdomen/GI: Patient has periumbilical pain to palpation without rebound or guarding. Nonsurgical abdomen noted., Vital Signs: 16:33 BP 155 / 80; Pulse 97; Resp 18; Temp 98.6(O); Pulse Ox 96% on R/A; Weight 74.39 kg; ap3 Height 5 ft. 1 in. ; 17:25 BP 133 / 51; Pulse 82; Pulse Ox 96% on R/A; ap3 18:50 BP 119 / 77; Pulse 92; Pulse Ox 98% on R/A; ap3 19:15 BP 124 / 58; Pulse 92; Resp 18 S; Pulse Ox 97% on R/A; jw7 21:00 BP 155 / 57; Pulse 99; Resp 19 S; Pulse Ox 95% on R/A; jw7 22:00 BP 131 / 59; Pulse 95; Resp 20 S; Pulse Ox 95% on R/A; jw7 23:00 BP 121 / 55; Pulse 90; Resp 21 S; Pulse Ox 95% on R/A; jw7 09/16 00:00 BP 129 / 54; Pulse 85; Resp 16 S; Pulse Ox 96% on R/A; jw7 09/15 16:33 Body Mass Index 30.99 (74.39 kg, 154.94 cm) ap3 MDM: 09/15 16:24 Patient medically screened. sp3 17:32 Data reviewed: vital signs, nurses notes, EMS record, lab test result(s), radiologic sp3 studies. ED course: 78-year-old female with nausea and abdominal pain postprocedure day 5 from colonoscopy. Differential diagnosis includes recovery from colonoscopy, procedure complication including perforation, infection, among others. I am not highly suspicious for sepsis, shock, aortic pathology, ACS, pathology including kidney stone/UTI/pyelonephritis, and COTTON TIPPER pathology or any other critical diagnoses at this time. Work-up will include laboratory values, EKG, CT scan of the abdomen and pelvis and general observation. Patient received 4 mg of ondansetron IV via EMS prior to arrival and feels better with that. We will continue IV fluids that were also started and safely discharge her home if she feels better and work-up is negative. Patient will be signed out to evening/night physician for final disposition.. 17:49 Transition of care: Care assumed from Yessenia Adams MD. ms3 21:22 Transition of care: After a detail discussion of the patient's case, care is ms3 transferred to Giacomo Garza MD. ED course: Patient currently awaiting urine at this time.. 09/15 16:25 Order name: CBC with Diff; Complete Time: 17:35 sp3 09/15 16:25 Order name: CMP; Complete Time: 17:35 sp3 09/15 16:25 Order name: Lipase; Complete Time: 17:35 sp3 09/15 16:25 Order name: Urinalysis w/ reflexes; Complete Time: 21:44 sp3 09/15 16:25 Order name: Troponin High Sensitivity; Complete Time: 17:35 sp3 09/15 21:44 Order name: Lactate w/ 2H reflex if indic. ashtyn 09/15 16:25 Order name: CT Abd/Pelvis - IV Contrast Only; Complete Time: 18:29 sp3 09/15 16:25 Order name: EKG; Complete Time: 16:26 sp3 09/15 16:25 Order name: IV Saline Lock; Complete Time: 16:38 sp3 09/15 16:25 Order name: Labs collected and sent; Complete Time: 16:47 sp3 09/15 16:25 Order name: EKG - Nurse/Tech; Complete Time: 17:10 sp3 09/15 16:25 Order name: NPO: Ice chips OK; Complete Time: 17:10 sp3 09/15 20:31 Order name: Straight Cath - Urine; Complete Time: 21:12 ms3 Administered Medications: 16:47 Drug: NS 0.9% IV 1000 ml IV at 1 bolus Per protocol; 1000 mL bolus Route: IV; Rate: 1 ap3 bolus; Site: left forearm; 23:15 Follow up: Response: No adverse reaction; IV Status: Completed infusion; IV Intake: jw7 1000ml 22:00 Drug: Rocephin IV 1 grams IV at per protocol once; Given slow IV push per pharmacy jw7 instructions Route: IV; Rate: per protocol; Site: left forearm; 23:49 Follow up: Response: No adverse reaction; IV Status: Completed infusion; IV Intake: [id number] 22:00 Drug: NS 0.9% IV 1000 ml IV at 1 bolus Per protocol; 1000 mL bolus Route: IV; Rate: 1 jw7 bolus; Site: left forearm; 23:50 Follow up: Response: No adverse reaction; IV Status: Completed infusion; IV Intake: jw7 1000ml 22:00 Drug: Famotidine IVP 20 mg IVP once; dilute with 10 mL 0.9% NaCl; give over 2 minutes jw7 Route: IVP; Site: left forearm; 23:49 Follow up: Response: No adverse reaction jw7 22:00 Drug: Ondansetron IVP 4 mg IVP once; over 2 minutes Route: IVP; Site: left forearm; jw7 23:49 Follow up: Response: No adverse reaction jw7 23:14 Drug: Promethazine IM 25 mg IM once Route: IM; Site: left deltoid; jw7 23:49 Follow up: Response: No adverse reaction jw7 Disposition Summary: 09/15/23 21:57 Hospitalization Ordered Notes: Hospitalization Status: Observation ashtyn Condition: Stable ashtyn Problem: an ongoing problem ashtyn Symptoms: have worsened ashtyn Bed/Room Type: Standard ashtyn Provider: Raj Gil(09/15/23 22:12) ashtyn Location: Telemetry/MedSurg (observation)(09/16/23 07:06) cg Room Assignment: 229(09/16/23 07:06) cg Diagnosis - Vomiting ashtyn - Abdominal pain, Generalized ashtyn - Elevated white blood cell count ashtyn - Dehydration ashtyn Forms: - Medication Reconciliation Form ashtyn - SBAR form ashtyn - Leadership Thank You Letter ashtyn Signatures: Dispatcher [employer] EDMS Giacomo Garza MD MD cha Garcia, Cindy, RN RN cg Graciela Layton RN RN ap3 Krish Barnhart DO DO ms3 Yessenia Adams MD MD sp3 Tina Melendez RN RN jw7 Corrections: (The following items were deleted from the chart) 17:35 17:32 ED course: 78-year-old female with nausea and abdominal pain postprocedure day 5 sp3 from colonoscopy. Differential diagnosis includes recovery from colonoscopy, procedure complication including perforation, infection, among others. I am not highly suspicious for sepsis, shock, aortic pathology, ACS, pathology including kidney stone/UTI/pyelonephritis, and COTTON TIPPER pathology or any other critical diagnoses at this time. Work-up will include laboratory values, EKG, CT scan of the abdomen and pelvis and general observation. Patient received 4 mg of ondansetron IV via EMS prior to arrival and feels better with that. We will continue IV fluids that were also started and safely discharge her home if she feels better and work-up is negative.. sp3 22:09 21:57 Telemetry/MedSurg (observation) ashtyn cg 22:09 21:57 ashtyn cg 22:12 21:57 Dayo Kasper ashtyn ashtyn 09/16 07:06 09/15 22:09 [facility] ER HOLD cg cg 09/16 07:06 10/16 22:09 ERHOLD- cg cg
--- NOTE | 2023-09-15 22:07 | P.HP ---
Certification for Inpatient Patient admitted to: Inpatient With expected LOS: <2 Midnights Patient will require the following post-hospital care: None Practitioner: I am a practitioner with admitting privileges, knowledge of patient current condition, hospital course, and medical plan of care. Services: Services provided to patient in accordance with Admission requirements found in Title 42 Section 412.3 of the Code of Federal Regulations Patient History Date of Service: 09/15/23 History of Present Illness: 78-year-old female with a past medical history of hypertension, tobacco use, COPD, GERD, H. pylori infection, anxiety, diverticulitis, seasonal allergies, migraines, presents to the emergency room with nausea vomiting abdominal pain. She reports symptoms were worse today. Reports associated poor p.o. intake. She reports seeing Dr. Lang, had a recent colon, EGD due to similar symptoms. Reports incidental finding of colon polyps, she reports mild constipation after procedure. She reports history of a colon resection. She denies fever, chills, bloody stools, shortness of breath or cough. Plan to admit for abdominal pain, nausea vomiting, dehydration, leukocytosis. Laboratory evaluation WBCs 17.60, early left shift and 94.5, elevated BUN and creatinine BUN 31 creatinine 1.19, UA normal CT of the abdomen pelvis IMPRESSION: No acute intra-abdominal or pelvic finding. , hysterectomy, bladder cyst, urethral dilation, Allergies [id number] Reductase Inhibitor Allergy (Verified 09/05/23 14:00) Rash aspirin Adverse Reaction (Verified 09/05/23 14:00) Shortness of breath formoterol fumarate [From Dulera] Adverse Reaction (Verified 09/05/23 14:00) Shortness of breath mometasone furoate [From Dulera] Adverse Reaction (Verified 09/05/23 14:00) Shortness of breath fabio silver Allergy (Uncoded 09/05/23 14:00) swelling Tape Allergy (Uncoded 09/05/23 14:00) Unknown Home Medications: Clopidogrel Bisulfate [Plavix*] 75 mg PO DAILY 05/23/15 Albuterol Inhaler [Ventolin Inhaler] 2 puff IH Q6H PRN 09/05/23 Docusate Sodium [Stool Softener] 100 mg PO DAILY 09/05/23 Fluticasone [Flonase 50mcg Nasal [place]] 2 sprays NS DAILY 09/05/23 Gabapentin 300 mg PO PRN PRN 09/05/23 Ipratropium/Albuterol Sulfate [Iprat-Albut 0.5-3(2.5) mg/3 ml] 3 ml IH PRN PRN 09/05/23 Lactobacillus Combo No.11 [Probiotic] 1 each PO DAILY 09/05/23 Lansoprazole 30 mg PO DAILY 09/05/23 Losartan Potassium [Cozaar*] 50 mg PO BID 09/05/23 [place] Xl 1 tab PO DAILY 09/05/23 Review of Systems 10-point ROS is otherwise unremarkable Physical Examination - Physical Exam General: Alert, In no apparent distress, Oriented x3 HEENT: Atraumatic, Normocephalic, PERRLA Neck: Supple, 2+ carotid pulse no bruit, JVD not distended Respiratory: Clear to auscultation bilaterally, Normal air movement Cardiovascular: No edema, Normal pulses Capillary refill: <2 Seconds Gastrointestinal: Other (Epigastric tenderness, mild diffuse tenderness, no rebound tenderness), Hyperactive Musculoskeletal: No clubbing, No swelling Integumentary: No rashes, No breakdown Neurological: Normal speech, Normal strength at 5/5 x4 extr - Studies Laboratory Data (last 24 hrs) 09/15/23 09/15/23 16:45 16:45 WBC 17.60 H Hgb 14.8 Hct 42.9 Plt Count 282 Sodium 138 Potassium 4.2 BUN 31 H Creatinine 1.19 H Glucose 137 H Total Bilirubin 0.3 AST 15 ALT 17 Alkaline Phosphatase 60 Lipase 31 Assessment and Plan - Plan Assessment plan abdominal pain acute nausea vomiting acute dehydration acute leukocytosis. Acute Acute on chronic kidney injury unknown baseline hypertension tobacco use COPD stable GERD History H. pylori infection anxiety History diverticulitis seasonal allergies DVT prophylaxis Assessment plan abdominal pain nausea vomiting dehydration leukocytosis Acute kidney injury unknown baseline GI consult IV fluids, IV antibiotics, as needed antiemetics, as needed analgesics IV Flagyl, ceftriaxone, as needed antiemetics Recent EGD and colon by Dr Lang, Laboratory evaluation WBCs 17.60, early left shift and 94.5, elevated BUN and creatinine BUN 31 creatinine 1.19, UA normal CT of the abdomen pelvis IMPRESSION: No acute intra-abdominal or pelvic finding. hypertension tobacco use COPD stable GERD Resume appropriate home meds History H. pylori infection Being followed by Dr. Lang Recent EGD and colon anxiety History diverticulitis seasonal allergies Resume appropriate home meds DVT prophylaxis Diet n.p.o. Full code Discharge Plan: Home Plan to discharge in: 48 Hours - Advance Directives Does patient have a Living Will: No Does patient have a Durable POA for Healthcare: No - Code Status/Comfort Care Code Status: Full Code Physician Review: Patient Assessed, Agree with Above Assessment and Plan Critical Care: No Time Spent Managing Pts Care (In Minutes): 50
[2023-09-15] MEDS ORDERED: PROMETHAZINE INJ 25 MG/ML AMP ONE (22:13)
[2023-09-15] MEDS ORDERED: CEFTRIAXONE 1000 MG/VIAL ONE (22:13)
[2023-09-15] MEDS ORDERED: ONDANSETRON 4 MG/2 ML VIAL ONE (22:13)
[2023-09-15] MEDS ORDERED: FAMOTIDINE 20 MG/2 ML VIAL IV ONE (22:14)
[2023-09-15] MEDS ORDERED: NA CHLORIDE 0.9% 1,000 ML ONE (22:14)
[2023-09-16 00:55] VITALS: BMI 30.9
[2023-09-16] MEDS ORDERED: ONDANSETRON 4 MG/2 ML VIAL IV PRN (01:37)
[2023-09-16] MEDS: METRONIDAZOLE 500mg IVPB 500 MG/100 ML BAG IV SCH ×3 (01:37→17:27)
[2023-09-16] MEDS ORDERED: MORPHINE 2 MG/ML SYR IV PRN (01:37)
[2023-09-16] MEDS ORDERED: LACTULOSE 20 GM/30 ML UCUP PO PRN (01:37)
[2023-09-16] MEDS: NA CHLORIDE 0.9% 1,000 ML IV SCH ×2 (02:50→17:27)
[2023-09-16] MEDS ORDERED: METRONIDAZOLE 500mg IVPB 500 MG/100 ML BAG IV ONE (02:54)
[2023-09-16] MEDS ORDERED: NA CHLORIDE 0.9% 1,000 ML ONE (02:54)
[2023-09-16 07:53] LABS: Absolute Lymphocytes (CBC) 1.7 K/uL (0.7-4.9); Hematocrit 37.6 % (36.0-45.0); Lymphocytes % 18.5 % (15.3-44.8); MCV 87.9 fL (80-100); MPV 7.7 fL (7.6-11.3); Platelets 217 thou/uL (152-406); RBC Red Blood Cell Count 4.27 M/uL (3.86-4.86)
[2023-09-16] MEDS ORDERED: INFLUENZA VACCINE (for 6+ mo) 0.5 ML DOSE IMVAC ONE (08:00)
[2023-09-16 08:21] LABS: Magnesium 1.8 mg/dL (1.6-2.4); Potassium 3.9 mEq/L (3.5-5.1)
[2023-09-16 08:22] VITALS: O2SAT 96
[2023-09-16] MEDS ORDERED: CEFTRIAXONE 1,000 MG in NA CHLORIDE 0.9% 50 ML IVPB SCH (09:00)
--- NOTE | 2023-09-16 10:40 | P.PN ---
Subjective Date of Service: 09/16/23 Chief Complaint: Abdominal pain Subjective: No new changes, Doing well HPI 09/15: Stephany Oates is a 78-year-old female with a past medical history of hypertension, tobacco use, COPD, GERD, H. pylori infection, anxiety, diverticulitis, seasonal allergies, migraines, presents to the emergency room with nausea vomiting abdominal pain. She reports symptoms were worse today. Reports associated poor p.o. intake. She reports seeing Dr. Lang, had a recent colon, EGD due to similar symptoms. Reports incidental finding of colon polyps, she reports mild constipation after procedure. She reports history of a colon resection. She denies fever, chills, bloody stools, shortness of breath or cough. Plan to admit for abdominal pain, nausea vomiting, dehydration, leukocytosis. Laboratory evaluation WBCs 17.60, early left shift and 94.5, elevated BUN and creatinine BUN 31 creatinine 1.19, UA normal CT of the abdomen pelvis IMPRESSION: No acute intra-abdominal or pelvic finding. 09/16: Stephany is sleeping comfortably in bed. She states she is feeling much better. She reports similar episodes of abdominal pain when her she becomes constipated. No BM since admission but is passing gas. Stephany is being followed by Dr. Resendiz who did an EGD on 09/10 with negative H-pylori, will continue flagyl and Rocephin. Some c/o pain to epigastic area on palpation. She denies fever, chills, CP, SOB, and ARAMBULA. Review of Systems 10-point ROS is otherwise unremarkable Physical Examination - Vital Signs Temperature: 97.4 F Blood Pressure: 135/62 Pulse: 68 Respirations: 16 Pulse Ox (%): 95 - Studies Laboratory Data (last 24 hrs) 09/15/23 09/15/23 16:45 16:45 WBC 17.60 H Hgb 14.8 Hct 42.9 Plt Count 282 Sodium 138 Potassium 4.2 BUN 31 H Creatinine 1.19 H Glucose 137 H Total Bilirubin 0.3 AST 15 ALT 17 Alkaline Phosphatase 60 Lipase 31 Assessment And Plan - Plan Physical Exam General: Alert, In no apparent distress, Oriented x3, obese HEENT: Atraumatic, Normocephalic, PERRLA Neck: Supple, 2+ carotid pulse no bruit, JVD not distended Respiratory: Clear to auscultation bilaterally, Normal air movement Cardiovascular: No edema, Normal pulses Capillary refill: <2 Seconds Gastrointestinal: Other (Epigastric tenderness, mild diffuse tenderness, no rebound tenderness), Hyperactive Musculoskeletal: No clubbing, No swelling Integumentary: No rashes, No breakdown Neurological: Normal speech, Normal strength at 5/5 x4 extr Assessment and Plan Assessment plan abdominal pain nausea vomiting dehydration leukocytosis Acute kidney injury unknown baseline GI consult IV fluids, as needed analgesics IV Flagyl, ceftriaxone, as needed antiemetics Recent EGD and colon by Dr Resendiz, Laboratory evaluation WBCs 17.60, early left shift and 94.5, elevated BUN and creatinine BUN 31 creatinine 1.19, UA normal CT of the abdomen pelvis IMPRESSION: No acute intra-abdominal or pelvic finding. hypertension- stable tobacco use COPD stable GERD Resume appropriate home meds History H. pylori infection Being followed by Dr. Lang Recent EGD and colon anxiety History diverticulitis seasonal allergies Resume appropriate home meds DVT prophylaxis Diet n.p.o. Full code Physician Review: Patient Assessed, Agree with Above Assessment and Plan
--- NOTE | 2023-09-16 11:21 | EKG ---
Test Date: 2023-09-15 Test Time: 17:05:16 Power Tool Repairer: ALP MEASUREMENT RESULTS: Intervals: Rate: 95 NV: 142 QRSD: 76 QT: 354 QTc: 444 [place]: P: 59 NV: 142 QRS: 20 T: 85 INTERPRETIVE STATEMENTS: Normal sinus rhythm Nonspecific T wave abnormality Abnormal ECG Compared to ECG 05/02/2017 16:27:40 T-wave abnormality now present Electronically Signed On 09-16-23 11:18:10 CDT by Alcon Butler
[2023-09-16 16:11] VITALS: BP 137/64; TEMP 97.6
--- NOTE | 2023-09-16 16:43 | P.DS ---
Admission Date: 09/15/23 Discharge Date: 09/16/23 Disposition: ROUTINE DISCHARGE Discharge Condition: GOOD Hospital Course: Nury Llanos is a pleasant 78-year-old female with a past medical history significant for hypertension, tobacco use, COPD, GERD, H. pylori infection, anxiety, diverticulitis, seasonal allergies, migraines who was admitted to the [facility] on 09/15/2023 for abdominal pain, nausea vomiting, dehydration, leukocytosis. Nury Oates tolerated IV fluids, Flagyl and Rocephin IV, and full liquid diet. She is ambulating independently in her room, conversing well, alert and oriented x3, urinating without problems, and passing gas. Her WBCs have improved to 9.0, blood pressure stable, and she is afebrile. Encouraging her to continue full liquid diet today, start GI soft diet tomorrow, and advance as tolerable. On 09/16/2023, Nury Oates was seen on morning rounds and deemed medically stable for discharge. Nury was discharged with instructions to schedule f ollow-up appointments with PCP for evaluation of renal cysts found on CT abd/pelvis and Dr. Lang follow up concerning GI symptoms. Nury Oates was provided prescriptions for Flagyl and ciprofloxacin. She was given the opportunity to ask questions and reported no further questions. Furthermore, all questions were answered to the best of my ability. A copy of this discharge summary will be sent to the above providers to facilitate continuity of care. Today, I personally spent 55 minutes with 50, of which greater than 50% of the time was spent in patient education, counseling, and coordination of care as described above. Physical Exam General: Alert, In no apparent distress, Oriented x3, obese HEENT: Atraumatic, Normocephalic, PERRLA Neck: Supple, 2+ carotid pulse no bruit, JVD not distended Respiratory: Clear to auscultation bilaterally, Normal air movement Cardiovascular: No edema, Normal pulses Capillary refill: <2 Seconds Gastrointestinal: some Epigastric tenderness, Hyperactive BS Musculoskeletal: No clubbing, No swelling Integumentary: No rashes, No breakdown Neurological: Normal speech, Normal strength at 5/5 x4 extr Vital Signs/Physical Exam: Temp Pulse Resp BP Pulse Ox 97.6 F 69 16 137/64 94 09/16/23 16:00 09/16/23 16:00 09/16/23 16:00 09/16/23 16:00 09/16/23 16:00 Laboratory Data at Discharge: WBC 9.00 thou/uL (4.3-10.9) 09/16/23 07:30 Hgb 12.6 g/dL (12.0-15.0) D 09/16/23 07:30 Hct 37.6 % (36.0-45.0) 09/16/23 07:30 Plt Count 217 thou/uL (152-406) 09/16/23 07:30 Sodium 141 mEq/L (136-145) 09/16/23 07:30 Potassium 3.9 mEq/L (3.5-5.1) 09/16/23 07:30 BUN 22 mg/dL (7-18) H 09/16/23 07:30 Creatinine 0.95 mg/dL (0.55-1.02) 09/16/23 07:30 Glucose 96 mg/dL (74-106) 09/16/23 07:30 Magnesium 1.8 mg/dL (1.6-2.4) 09/16/23 07:30 Total Bilirubin 0.3 mg/dL (0.2-1.0) 09/15/23 16:45 AST 15 U/L (15-37) 09/15/23 16:45 ALT 17 U/L (13-56) 09/15/23 16:45 Alkaline Phosphatase 60 U/L (45-117) 09/15/23 16:45 Lipase 31 U/L (13-75) 09/15/23 16:45 Home Medications: Clopidogrel Bisulfate [Plavix*] 75 mg PO DAILY 05/23/15 Albuterol Inhaler [Ventolin Inhaler*] 2 puff IH Q6H PRN 09/05/23 Docusate Sodium [Stool Softener] 100 mg PO DAILY 09/05/23 Fluticasone [Flonase 50MCG Nasal [place]*] 2 sprays NS DAILY 09/05/23 Gabapentin 300 mg PO PRN PRN 09/05/23 Ipratropium/Albuterol Sulfate [Iprat-Albut 0.5-3(2.5) mg/3 ml] 3 ml IH PRN PRN 09/05/23 Lactobacillus Combo No.11 [Probiotic] 1 each PO DAILY 09/05/23 Lansoprazole 30 mg PO DAILY 09/05/23 Losartan Potassium [Cozaar*] 50 mg PO BID 09/05/23 [place] Xl 1 tab PO DAILY 09/05/23 Ciprofloxacin HCl [Cipro 500 MG Tablet] 500 mg PO BID 5 Days #10 tab 09/16/23 metroNIDAZOLE [Flagyl] 500 mg PO Q12H 5 Days #10 cap 09/16/23 New Medications: Ciprofloxacin HCl [Cipro 500 MG Tablet] 500 mg PO BID 5 Days #10 tab metroNIDAZOLE [Flagyl] 500 mg PO Q12H 5 Days #10 cap Physician Discharge Instructions: 1. Please call and schedule a follow-up appointment with your PCP in 3-5 days - Please follow-up with your PCP for medication refills/adjustments -Small renal cysts found on CT scan 2. Please call and schedule a follow-up appointment with Sr Astrid in 3-5 days -further investigations and treatment for these GI symptoms 3. Activity as tolerated, no restriction 4. Advance diet as tolerated, Full liquid today, GI soft tomorrow 5. Return to ED if symptoms worsen New medications- drop off prescriptions at your pharmacy Flagyl 500 mg PO Q12H for 5 days Ciprofloxacin 500 mg PO BID for 5 days Diet: Regular (FLD, GI soft) Time spent managing pt's care (in minutes): 55
== END 2023-09-16 20:15 | disposition home or self-care (01) | DRG 392 ==
LOC: ER 16:15 → ERHOLD 22:08 → 2ND 09-16 07:24
PROVIDERS: ADMIT Internal Medicine; ATTEND Internal Medicine
DX: R10.9 Unspecified abdominal pain (principal); N17.9 Acute kidney failure, unspecified; E86.0 Dehydration; I12.9 Hypertensive chronic kidney disease with stage 1 through stage 4 chronic kidney disease, or unspecified chronic kidney disease; N18.9 Chronic kidney disease, unspecified; D72.829 Elevated white blood cell count, unspecified; F41.9 Anxiety disorder, unspecified; J30.2 Other seasonal allergic rhinitis; K21.9 Gastro-esophageal reflux disease without esophagitis; N32.89 Other specified disorders of bladder; J44.9 Chronic obstructive pulmonary disease, unspecified; Z88.6 Allergy status to analgesic agent; Z90.49 Acquired absence of other specified parts of digestive tract; Z88.8 Allergy status to other drugs, medicaments and biological substances; Z79.02 Long term (current) use of antithrombotics/antiplatelets; Z91.048 Other nonmedicinal substance allergy status; Z79.899 Other long term (current) drug therapy
CPT/HCPCS: 36415; 51702; 74177; 80048; 80053; 81001; 83605; 83690; 83735; 84484; 85025; 93005; 96361; 96365; 96366; 96372; 96375; 99285; J0696; J2405; J2550; J7030; Q9967